=== PATIENT | female | born 1945 | race Caucasian/White ===

== ENCOUNTER → 2016-10-17 | Outpatient (CLI) | payer MEDICARE, OTHER ==
--- NOTE | 2016-10-17 10:34 | REPMRS ---
Patient History The patient states she had a clinical breast exam in September 2016. Family history of breast cancer in paternal aunt under age 50. Benign radio exam breast specimen of the left breast, July 14, 2014. Benign stereotatic loc for ea lesion of the left breast, July 14, 2014. Patient has lost 14 pounds since last mammo. Digital Mammo Screening Bilat: October 17, 2016 - Exam #: [id number] Bilateral CC and MLO view(s) were taken. Technologist: Rosemary Keating, Technologist Prior study comparison: September 03, 2015, bilateral digital mammo screening bilat performed at [facility]. January 19, 2015, left breast digital mammo diagnostic unilateral performed at [facility]. FINDINGS: There are scattered fibroglandular densities. There is a needle biopsy marker clip in the left breast. There has been no change in the appearance of the mammogram from the prior studies. There is a mild amount of scattered fibroglandular density which is fairly symmetric. There is no interval development of dominant mass, architectural distortion, or clustered microcalcification suggestive of malignancy. ASSESSMENT: BI-RADS/ACR category 2 mammogram. Benign finding(s). Recommendation Routine screening mammogram in 1 year (for women over age 40). This mammogram was interpreted with the aid of an FDA-approved computer-aided dectection system. Electronically Signed By: Onesimo Li MD 10/17/16 [id number]
== END ==
LOC: M RAD 09:26
PROVIDERS: ATTEND Nurse Practitioner Adult Health
DX: Z12.31 Encounter for screening mammogram for malignant neoplasm of breast (principal); Z80.3 Family history of malignant neoplasm of breast; R92.8 Other abnormal and inconclusive findings on diagnostic imaging of breast

== ENCOUNTER → 2016-11-22 | Outpatient (CLI) | payer MEDICARE, OTHER ==
[~2016-11-22] MED LIST: ISOVUE-370 76% 100ML VIAL (Q9967) As Ordered ONE
--- NOTE | 2016-11-22 09:28 | REP ---
CT HEAD WITHOUT AND WITH CONTRAST: HISTORY: Dizziness. CONTRAST: Isovue 370, 75 mL. Areas of decreased attentuation are present in the periventricular white matter. This represents small vessel ischemic disease. There is no intraparenchymal hemorrhage, mass or midline shift. There is no abnormal enhancement. The ventricular system and cortical sulci are dilated consistent with minimal volume loss. There is no extracerebral collection. The visualized sinuses are clear. IMPRESSION: 1. Small vessel ischemic disease. 2. Minimal volume loss. Signed by Jl Fox MD 11/22/2016 09:33 A
== END ==
LOC: M RAD 08:05
PROVIDERS: ATTEND Psychiatry & Neurology Neurology
DX: R42 Dizziness and giddiness (principal); D48.1 Neoplasm of uncertain behavior of connective and other soft tissue
CPT/HCPCS: 70470; Q9967

== ENCOUNTER → 2017-02-23 | Outpatient (REF) | payer MEDICARE, OTHER ==
[2017-02-23 13:44] LABS: BASO % 0.5 % (0.0-1.0); EOS # 0.3 10^3/uL (0.0-0.50); EOS % 3.6 % (0.0-3.0); HEMATOCRIT 38.2 % (36.0-47.0); HEMOGLOBIN 11.9 g/dl (12.0-16.0); IMMATURE GRANULOCYTE % 0.4 % (0-0); LYMPH % 23.9 % (24.0-44.0); MEAN CORPUSCULAR HGB CONC 31.2 g/dl (32.0-36.5); MEAN CORPUSCULAR VOLUME 86.8 fl (80.0-96.0); MONO # 0.7 10^3/uL (0.0-0.8); MONO % 7.8 % (0.0-5.0); NEUTROPHILS # 5.3 10^3/uL (1.8-7.7); NEUTROPHILS % 63.8 % (36.0-66.0); PLATELET COUNT, AUTOMATED 224 10^3/uL (150-450); RED CELL DISTRIBUTION WIDTH 15.2 % (11.5-14.5); WHITE BLOOD COUNT 8.3 10^3/uL (4.0-10.0)
[2017-02-23 14:12] LABS: ALBUMIN 3.3 GM/DL (3.2-5.2); ALBUMIN/GLOBULIN RATIO 1.18 (1.00-1.93); ALKALINE PHOSPHATASE 62 U/L (45-117); ALT/SGPT 17 U/L (12-78); ANION GAP 10 MEQ/L (8-16); AST/SGOT 16 U/L (7-37); BILIRUBIN,TOTAL 0.4 MG/DL (0.2-1.0); BLOOD UREA NITROGEN 15 MG/DL (7-18); CALCIUM LEVEL 9.2 MG/DL (8.8-10.2); CARBON DIOXIDE LEVEL 28 MEQ/L (21-32); CHLORIDE LEVEL 106 MEQ/L (98-107); CHOLESTEROL LEVEL 158 MG/DL (<200); CHOLESTEROL RISK RATIO 3.224 (<5); CREATININE FOR GFR 1.14 MG/DL (0.55-1.02); FREE T4 1.14 NG/DL (0.76-1.46); GLOMERULAR FILTRATION RATE 50.2 (>39); GLUCOSE, FASTING 128 MG/DL (83-110); HDL CHOLESTEROL 49 MG/DL (>40); LDL CHOLESTEROL 65.2 MG/DL (<100); NON-HDL-C 109 MG/DL; POTASSIUM SERUM 3.9 MEQ/L (3.5-5.1); SODIUM LEVEL 144 MEQ/L (136-145); TOTAL PROTEIN 6.1 GM/DL (6.4-8.2); TRIGLYCERIDES LEVEL 219 MG/DL (<150)
[2017-02-23 15:52] LABS: ESTIMATED AVERAGE GLUCOSE 146 MG/DL (60-110); HEMOGLOBIN A1c 6.7 %
== END ==
LOC: M SFHCCLAY 08:40
DX: E11.29 Type 2 diabetes mellitus with other diabetic kidney complication (principal); I10 Essential (primary) hypertension; E78.4 Other hyperlipidemia
CPT/HCPCS: 84443

== ENCOUNTER → 2017-06-19 | Outpatient (REF) | payer MEDICARE, OTHER ==
[2017-06-19 13:58] LABS: FOLATE 6.9 NG/ML; VITAMIN B12 LEVEL > 2000 PG/ML
[2017-06-19 14:03] LABS: FERRITIN 11 NG/ML (8-252); IRON (FE) 59 UG/DL (50-170); PERCENT SATURATION 16.4 % (13.2-45.0); TOTAL IRON BINDING CAPACITY 359 UG/DL (250-450)
== END ==
LOC: M LAB REF 13:18
DX: D64.9 Anemia, unspecified (principal)
CPT/HCPCS: 82746

== ENCOUNTER → 2017-07-04 | Outpatient (REF) | payer MEDICARE, OTHER ==
[2017-07-04 21:51] LABS: ANION GAP 6 MEQ/L (8-16); BLOOD UREA NITROGEN 14 MG/DL (7-18); CALCIUM LEVEL 9.7 MG/DL (8.8-10.2); CARBON DIOXIDE LEVEL 30 MEQ/L (21-32); CHLORIDE LEVEL 105 MEQ/L (98-107); CREATININE FOR GFR 1.06 MG/DL (0.55-1.30); GLOMERULAR FILTRATION RATE 54.4 (>39); GLUCOSE, FASTING 215 MG/DL (70-100); POTASSIUM SERUM 4.3 MEQ/L (3.5-5.1); SODIUM LEVEL 141 MEQ/L (136-145)
== END ==
LOC: M SFHCCLAY 10:52
DX: E11.29 Type 2 diabetes mellitus with other diabetic kidney complication (principal)
CPT/HCPCS: 80048

== ENCOUNTER → 2017-08-14 | Outpatient (REF) | payer MEDICARE, OTHER ==
[2017-08-15 12:35] LABS: CHOLESTEROL LEVEL 164 MG/DL (<200); HDL CHOLESTEROL 41 MG/DL (>40); NON-HDL-C 123 MG/DL; TRIGLYCERIDES LEVEL 545 MG/DL (<150)
[2017-08-15 16:42] LABS: ESTIMATED AVERAGE GLUCOSE 214 MG/DL (60-110); HEMOGLOBIN A1c 9.1 %
== END ==
LOC: M SFHCCLAY 14:41
DX: E11.29 Type 2 diabetes mellitus with other diabetic kidney complication (principal)
CPT/HCPCS: 83036

== ENCOUNTER → 2017-11-02 | Outpatient (CLI) | payer MEDICARE, OTHER | LOC: M RAD 09:25 | DX: Z12.31 Encounter for screening mammogram for malignant neoplasm of breast (principal); N60.31 Fibrosclerosis of right breast; N60.32 Fibrosclerosis of left breast; Z80.3 Family history of malignant neoplasm of breast | CPT/HCPCS: 77067 ==

== ENCOUNTER → 2017-11-21 | Outpatient (REF) | payer MEDICARE, OTHER ==
[2017-11-22 12:47] LABS: ESTIMATED AVERAGE GLUCOSE 203 MG/DL (60-110); HEMOGLOBIN A1c 8.7 %
== END ==
LOC: M SFHCCLAY 15:04
DX: E11.29 Type 2 diabetes mellitus with other diabetic kidney complication (principal)
CPT/HCPCS: 83036

== ENCOUNTER → 2018-06-06 | Outpatient (REF) | payer MEDICARE, OTHER ==
[2018-06-06 12:41] LABS: BASO % 0.5 % (0.0-1.0); EOS # 0.4 10^3/uL (0.0-0.50); EOS % 4.6 % (0.0-3.0); HEMATOCRIT 33.7 % (36.0-47.0); HEMOGLOBIN 9.6 g/dl (12.0-15.5); LYMPH # 1.5 10^3/uL (1.5-4.5); LYMPH % 18.1 % (24.0-44.0); MEAN CORPUSCULAR HEMOGLOBIN 22.5 pg (27.0-33.0); MEAN CORPUSCULAR HGB CONC 28.5 g/dl (32.0-36.5); MEAN CORPUSCULAR VOLUME 78.9 fl (80.0-96.0); MONO # 0.7 10^3/uL (0.0-0.8); MONO % 8.2 % (0.0-5.0); NEUTROPHILS # 5.5 10^3/uL (1.8-7.7); NEUTROPHILS % 68.4 % (36.0-66.0); PLATELET COUNT, AUTOMATED 243 10^3/uL (150-450); RED BLOOD COUNT 4.27 10^6/uL (4.00-5.40)
[2018-06-06 13:02] LABS: HEMOGLOBIN A1c 8.3 %
[2018-06-06 13:19] LABS: ALBUMIN 3.3 GM/DL (3.2-5.2); BILIRUBIN,TOTAL 0.7 MG/DL (0.2-1.0); CALCIUM LEVEL 9.4 MG/DL (8.8-10.2); CHOLESTEROL RISK RATIO 3.255 (<5); CREATININE FOR GFR 1.13 MG/DL (0.55-1.30); FREE T4 1.21 NG/DL (0.76-1.46); GLOMERULAR FILTRATION RATE 50.4 (>39); POTASSIUM SERUM 3.7 MEQ/L (3.5-5.1); THYROID STIMULATING HORMONE 2.36 uIU/ML (0.358-3.740); TOTAL PROTEIN 6.9 GM/DL (6.4-8.2)
== END ==
LOC: M SFHCCLAY 08:18
PROVIDERS: ATTEND Nurse Practitioner Family
DX: E61.1 Iron deficiency (principal); I10 Essential (primary) hypertension; E78.49 Other hyperlipidemia; E11.29 Type 2 diabetes mellitus with other diabetic kidney complication
CPT/HCPCS: 80053; 80061; 83036; 83540; 84439; 84443; 85025; G0463

== ENCOUNTER → 2018-09-02 | Outpatient (REF) | payer MEDICARE, OTHER ==
[~2018-09-02] MED LIST changes: +ALLO10TA PO; +ASPI81TA26 PO; +ATEN25TA PO; +CINA30TA4 PO; +FERR5ELX PO; -ISOVUE-370 76% 100ML VIAL (Q9967) As Ordered ONE; +MONT10TA2 PO; +PRAV20TA2 PO; +QUIN1TAB4 PO; +TORS10TA3 PO; +TORS20TA2 PO; +TOUJ1.2I SC; +XALA0.007 OS
== END ==
LOC: M LAB REF 13:29
PROVIDERS: ATTEND Internal Medicine Gastroenterology
DX: R19.7 Diarrhea, unspecified (principal)

== ENCOUNTER 2018-09-16 10:12 | Day surgery (SDC) | payer MEDICARE, OTHER ==
[~2018-09-16] VITALS: Ht 162.6 cm; Wt 130.2 kg
[~2018-09-16 10:12] MED LIST changes: +NS 1,000 ML IV ONE
[2018-09-16] MEDS ORDERED: PROPOFOL 200 MG/20 ML VIAL As Ordered ONE (12:12)
[2018-09-16] MEDS ORDERED: LIDOCAINE 2% INJ 100 MG/5 ML SDV (FOR ANES.) As Ordered ONE (12:12)
--- NOTE | 2018-09-16 12:35 | ROOR ---
Patient Name: Mimi Jones Procedure Date: 09/16/2018 12:02 PM Date of : 1945 Age: 73 Room: [facility] Gender: Female Note Status: Finalized Procedure: Total Colonoscopy to Cecum + Bx.+ Carbon Spot Marking Indications: Lower abdominal pain, Change in bowel habits Providers: Bubba Balderas MD Referring MD: Rosangela Trinidad NP Requesting Provider: Medicines: Monitored Anesthesia Care Complications: No immediate complications. Procedure: Pre-Anesthesia Assessment: - The heart rate, respiratory rate, oxygen saturations, blood pressure, adequacy of pulmonary ventilation, and response to care were monitored throughout the procedure. The Colonoscope was introduced through the anus and advanced to the cecum, identified by appendiceal orifice and ileocecal valve. The colonoscopy was performed without difficulty. The patient tolerated the procedure well. The quality of the bowel preparation was excellent. Findings: The perianal and digital rectal examinations were normal. Non-bleeding internal hemorrhoids were found during retroflexion. The hemorrhoids were small and Grade I (internal hemorrhoids that do not prolapse). Scattered small-mouthed diverticula were found in the recto-sigmoid colon, sigmoid colon and descending colon. An ulcerated partially obstructing large mass was found in the proximal ascending colon. The mass was circumferential. No bleeding was present. Biopsies were taken with a cold forceps for histology. Area was successfully injected with Spot (carbon black) for tattooing. The exam was otherwise without abnormality on direct and retroflexion views. Impression: - Non-bleeding internal hemorrhoids. - Diverticulosis in the recto-sigmoid colon, in the sigmoid colon and in the descending colon. - Rule out malignancy, partially obstructing tumor in the proximal ascending colon. Biopsied. Injected. - The examination was otherwise normal on direct and retroflexion views. - The examination was otherwise normal. Recommendation: - Patient has a contact number available for emergencies. The signs and symptoms of potential delayed complications were discussed with the patient. Return to normal activities tomorrow. Written discharge instructions were provided to the patient. - Discharge patient to home. - Continue present medications. - Await pathology results. - Telephone GI clinic for pathology results in 1 week. - Check hemogram with white blood cell count and platelets today. - Check liver enzymes (AST, ALT, alkaline phosphatase, bilirubin) today. - Check CEA today. - Refer to a surgeon at appointment to be scheduled. - The findings and recommendations were discussed with the patient's family. Bubba Balderas MD Bubba Balderas MD 09/16/2018 12:35:04 PM Electronically signed by Bubba Balderas MD Number of Addenda: 0 Note Initiated On: 09/16/2018 12:02 PM Estimated Blood Loss: Estimated blood loss: none.
[2018-09-16 13:20] VITALS: BP 193/96
[2018-09-16 13:30] LABS: HEMATOCRIT 32.5 % (36.0-47.0); HEMOGLOBIN 9.7 g/dl (12.0-15.5); MEAN CORPUSCULAR HEMOGLOBIN 23.2 pg (27.0-33.0); MEAN CORPUSCULAR HGB CONC 29.8 g/dl (32.0-36.5); MEAN CORPUSCULAR VOLUME 77.6 fl (80.0-96.0); PLATELET COUNT, AUTOMATED 239 10^3/uL (150-450); RED BLOOD COUNT 4.19 10^6/uL (4.00-5.40); WHITE BLOOD COUNT 7.7 10^3/uL (4.0-10.0)
[2018-09-16 13:49] LABS: ALBUMIN 2.9 GM/DL (3.2-5.2); BILIRUBIN,TOTAL 0.6 MG/DL (0.2-1.0); CALCIUM LEVEL 9.2 MG/DL (8.8-10.2); CREATININE FOR GFR 1.08 MG/DL (0.55-1.30); GLOMERULAR FILTRATION RATE 53.1 (>39); POTASSIUM SERUM 3.6 MEQ/L (3.5-5.1); TOTAL PROTEIN 6.2 GM/DL (6.4-8.2)
== END 2018-09-16 13:24 | disposition home or self-care (01) ==
LOC: M OPP 10:12
PROVIDERS: ATTEND Internal Medicine Gastroenterology
DX: K64.0 First degree hemorrhoids (principal); D37.4 Neoplasm of uncertain behavior of colon; K56.690 Other partial intestinal obstruction; K57.30 Diverticulosis of large intestine without perforation or abscess without bleeding; R10.30 Lower abdominal pain, unspecified; R19.4 Change in bowel habit; Z79.4 Long term (current) use of insulin; Z79.899 Other long term (current) drug therapy; Z88.8 Allergy status to other drugs, medicaments and biological substances

== ENCOUNTER → 2018-09-27 | Outpatient (CLI) | payer MEDICARE, OTHER ==
[~2018-09-27] MED LIST changes: +ACYC1CAP20 PO; +ATOR40TA75 PO; +B-12100021 PO; +ERGO80006 PO; +GASTROGRAFIN SOLUTION 30ML (Q9963) As Ordered ONE; +ISOVUE-370 76% 100ML VIAL (Q9967) As Ordered ONE; +LIDO2.5C15 TOP; +MAGN400C2 PO; +MAGN400T14 PO; -NS 1,000 ML IV ONE; +ONDA8TAB10 PO; +PROC10TA4 PO; +SUPRSOL2; +VITA200028 PO; +XANA0.25 PO
--- NOTE | 2018-09-27 18:47 | REP ---
CT of the abdomen and pelvis with IV and bowel contrast for benign neoplasm of the ascending colon. There are no comparisons. The visualized lung garsia demonstrate a right lower lobe 15 mm pleural-based lung nodule. In the absence of comparison studies. This is a category for B lung lesion with the probability of malignancy five - 15%. 3-month follow-up chest CT is recommended and PET / CT scan might be considered. The hepatic parenchyma is homogeneous. There are surgical clips in the gallbladder fossa. The pancreas and spleen are unremarkable. The adrenals and kidneys are unremarkable. The abdominal aorta is unremarkable. There is no periaortic adenopathy or mass. There is circumferential wall thickening of the cecum and proximal ascending colon. The appendix is unremarkable. The transverse colon is unremarkable. There is mild wall thickening of the proximal and mid descending colon, nonspecific, but could represent colitis in the appropriate clinical setting. Pelvis: There is a hysterectomy. Vaginal cuff and adnexa are unremarkable. The bladder is unremarkable. There is no ascites or adenopathy. Impression: There is circumferential wall thickening of the cecum and proximal ascending colon. There is mild wall thickening of the descending colon. This is compatible with colitis in the appropriate clinical setting. There is a 15 ml pleural-based left lower lobe lung nodule. The absence of comparison studies. A followup CT scan in 3 months is recommended. PET / CT scan might be considered. There is no abdominal or pelvic adenopathy. There is no ascites. There is no evidence of metastatic disease. Cholecystectomy and hysterectomy. Electronically Signed by Bradley Pathak MD 09/27/2018 06:39 P
== END ==
LOC: M RAD 15:28
PROVIDERS: ATTEND Surgery
DX: D12.2 Benign neoplasm of ascending colon (principal)
CPT/HCPCS: 74177; Q9963; Q9967

== ENCOUNTER → 2018-10-08 | Outpatient (REF) | payer MEDICARE, OTHER ==
[~2018-10-08] MED LIST changes: -ACYC1CAP20 PO; -ATOR40TA75 PO; -B-12100021 PO; -ERGO80006 PO; -GASTROGRAFIN SOLUTION 30ML (Q9963) As Ordered ONE; -ISOVUE-370 76% 100ML VIAL (Q9967) As Ordered ONE; -LIDO2.5C15 TOP; -MAGN400C2 PO; -MAGN400T14 PO; -ONDA8TAB10 PO; -PROC10TA4 PO; -VITA200028 PO; -XANA0.25 PO
[2018-10-08 20:30] LABS: CALCIUM LEVEL 9.1 MG/DL (8.8-10.2); CREATININE FOR GFR 1.2 MG/DL (0.55-1.30); POTASSIUM SERUM 3.8 MEQ/L (3.5-5.1)
== END ==
LOC: M SFHCCLAY 10:17
PROVIDERS: ATTEND Family Medicine
DX: Z01.818 Encounter for other preprocedural examination (principal); I12.9 Hypertensive chronic kidney disease with stage 1 through stage 4 chronic kidney disease, or unspecified chronic kidney disease; N18.3 Chronic kidney disease, stage 3 (moderate)
CPT/HCPCS: 80048; 93005; G0463

== ENCOUNTER 2018-10-15 12:50 | Inpatient (IN) | payer MEDICARE, OTHER ==
[~2018-10-15] VITALS: Ht 162.6 cm; Wt 129.8 kg
--- NOTE | 2018-10-15 06:16 | HPE ---
DATE OF ADMISSION: 10/15/2018 ADMITTING DIAGNOSIS: Right colon cancer. HISTORY OF PRESENT ILLNESS: The patient is a 73-year-old woman who underwent a colonoscopy as a screening procedure by Dr. Balderas on 09/16/2018. She was found to have some mild diverticulosis. She was also noted to have an ulcerated partially obstructing mass in the proximal ascending colon. The mass appeared circumferential. Biopsies were taken and the area was spot marked. Her pathology revealed only fragments of tubulovillous adenoma with no high-grade dysplasia or malignancy identified. A CT scan of the abdomen and pelvis was obtained which revealed circumferential wall thickening of the cecum and proximal ascending colon. Labs included a CEA which was mildly elevated at 4.0 with an upper limit of normal of 2.5. The mass is consistent with cancer both by inspection endoscopically and CT. She was counseled that this is most likely cancer even though the biopsy did not confirm this. She is now being admitted to undergo a robotic-assisted laparoscopic right hemicolectomy. She was counseled that her obesity may make completion of a laparoscopic colectomy difficult if not impossible and we may be forced to convert to an open procedure. ALLERGIES: The patient reports an allergy to PHENERGAN. CURRENT MEDICATIONS: Include montelukast 10 mg by mouth daily at bedtime, pravastatin 20 mg daily, allopurinol 300 mg by mouth daily, torsemide 40 mg every morning and 20 mg every evening, atenolol 25 mg by mouth daily, quinapril 40 mg by mouth daily, aspirin 81 mg by mouth daily, Toujeo SoloStar 100 units subcu daily, meclizine hydrochloride 25 mg by mouth three times a day as needed, Sensipar 30 mg 1 tablet weekly, latanoprost left drops at bedtime, and she is on some oral iron. PAST SURGICAL HISTORY: Significant for tonsillectomy. She has had a previous cholecystectomy. She has had a hysterectomy. She has had cataract surgery with implants and has had surgery for glaucoma. PAST MEDICAL HISTORY: Significant for obesity. She has diabetes. She has hypercholesterolemia and hypertension. She has a history of glaucoma. She has had hyperparathyroidism. She has a history of Meniere's disease. FAMILY HISTORY: Significant that her father is from leukemia and the mother is from uterine and stomach cancer. SOCIAL HISTORY: The patient is a nonsmoker and denies any alcohol use. REVIEW OF SYSTEMS: Reveals no history of chest pain or palpitations. She has had some chronic issues with diarrhea but has not seen any bleeding. She denies any cough, wheezing or sputum production. She has some chronic knee pain. She has no history of deep vein thrombosis (DVT) or pulmonary embolus. She denies any shortness of breath or wheezing. PHYSICAL EXAMINATION: Reveals a pleasant woman in no acute distress. She has obvious morbid obesity. Sclerae are anicteric. Mucous membranes are moist. Neck is supple without mass or bruit. Heart exam shows a regular rate and rhythm. The lungs are clear to auscultation bilaterally. Abdomen is quite obese. There is no evident hernia. She has active bowel sounds. The abdomen is soft and nontender without appreciable mass. Extremities are without edema. She has palpable radial and pedal pulses bilaterally. IMPRESSION: The patient has a mass in the ascending colon consistent with cancer. Additional diagnoses include diabetes mellitus type 2, hypercholesterolemia, hypertension, glaucoma, allergies, and Meniere disease. PLAN: The patient is being admitted on the morning of 10/15/2018 to undergo a robotic-assisted laparoscopic right hemicolectomy. The patient was counseled that it may be necessary to convert to an open procedure if her surgery is made significantly more difficult by her obesity. The patient was to perform an antibiotic and mechanical bowel preparation on 10/14/2018 using SUPREP with neomycin and Flagyl. She will receive a dose of intravenous antibiotics just before surgery. Thromboembolic deterrent stockings and sequentials will be utilized during the procedure for DVT prophylaxis. She was counseled regarding the risks of the surgery. Risks include but are not limited to bleeding, infection, scarring, adverse drug reaction, need for further surgery, injury of internal organ, anastomotic leak, and hernia. She had an opportunity to ask questions regarding the surgery and desires to proceed. ALFONSO
[~2018-10-15 12:50] MED LIST changes: +ALVIMOPAN 12 MG CAPSULE (ENTEREG) PO ONE; +LACTATED RINGER'S 1000 ML IV ONE; +LIDOCAINE 1% MDV 20ML VIAL SQ PRN; +LR 1,000 ML IV ONE; -SUPRSOL2; +cefoTEtan DISODIUM 2 GM in D5W MINI-BAG PLUS 50 ML IV ONE
[2018-10-15] MEDS ORDERED: SUPRSOL2 (13:13)
[2018-10-15] MEDS ORDERED: dexameTHASONE 4 MG/ML 1ML VIAL (J1100) As Ordered ONE ×2 (13:50→13:51)
[2018-10-15] MEDS ORDERED: LIDOCAINE 2% INJ 100 MG/5 ML SDV (FOR ANES.) As Ordered ONE (13:50)
[2018-10-15] MEDS ORDERED: ONDANSETRON 4MG/2ML VIAL (J2405) As Ordered ONE (13:50)
[2018-10-15] MEDS ORDERED: ROCURONIUM BROMIDE 50 MG/5 ML VIAL As Ordered ONE ×4 (13:50→21:34)
[2018-10-15] MEDS ORDERED: PROPOFOL 200 MG/20 ML VIAL As Ordered ONE (13:50)
[2018-10-15] MEDS ORDERED: KETOROLAC 60 MG/2 ML VIAL (J1885) As Ordered ONE (13:51)
[2018-10-15] MEDS ORDERED: fentaNYL 250 MCG/5 ML INJECTION (J3010) As Ordered ONE (13:52)
[2018-10-15] MEDS ORDERED: MIDAZOLAM INJ 2 MG/2 ML VIAL (J2250) As Ordered ONE (13:52)
[2018-10-15] MEDS ORDERED: BUPIVACAINE HCL 0.25% 30 ML VIAL As Ordered ONE (15:34)
[2018-10-15] MEDS ORDERED: DESFLURANE 240 ML INHALANT As Ordered ONE (15:41)
[2018-10-15] MEDS ORDERED: ePHEDrine SULFATE 25 MG/5 ML(5MG/ML) SYRINGE As Ordered ONE ×2 (16:11→16:40)
[2018-10-15] MEDS ORDERED: SUGAMMADEX SODIUM 500 MG/5 ML VIAL (BRIDION) As Ordered ONE (17:07)
[2018-10-15] MEDS: LATANOPROST 0.005% OPHTH SOLN 2.5 ML OS SCH (21:00)
[2018-10-15] MEDS: HumaLOG INSULIN (NovoLOG) PER UNIT SC SCH (21:00)
[2018-10-15] MEDS ORDERED: HYDROmorphone HCL 2 MG/ML 1ML VIAL (J1170) As Ordered ONE (21:33)
[2018-10-15] MEDS ORDERED: METOCLOPRAMIDE INJ 10MG/2ML VIAL (J2765) IV PRN ×3 (22:00→23:15)
[2018-10-15] MEDS ORDERED: PERCOCET 5MG/325MG TAB PO PRN ×2 (22:00→23:15)
[2018-10-15] MEDS ORDERED: LR 1,000 ML IV SCH ×2 (22:00→23:15)
[2018-10-15] MEDS ORDERED: ONDANSETRON 4MG/2ML VIAL (J2405) IV PRN ×3 (22:00→23:15)
[2018-10-15] MEDS ORDERED: fentaNYL 100 MCG/2 ML INJECTION (J3010) IV PRN ×2 (22:00→23:15)
[2018-10-15] MEDS ORDERED: MEPERIDINE INJ 25 MG/ML VIAL (J2175) IV PRN ×2 (22:00→23:15)
[2018-10-15] MEDS ORDERED: MORPHINE 4 MG/ML 1ML VIAL/SYRINGE (J2270) IV PRN (22:15)
[2018-10-15] MEDS ORDERED: HumaLOG INSULIN (NovoLOG) PER UNIT SC ONE (22:15)
[2018-10-15 22:45] VITALS: BP 165/81
[2018-10-15 23:15] VITALS: BP 166/82
[2018-10-15] MEDS ORDERED: HumaLOG INSULIN (NovoLOG) PER UNIT SC SCH (23:30)
[2018-10-15] MEDS: LR 1,000 ML IV SCH (23:44)
[2018-10-15 23:45] VITALS: BP 159/79
[2018-10-16] VITALS (8 sets, daily range): BP systolic 111–147; BP diastolic 56–86
[2018-10-16] MEDS ORDERED: cefoTEtan DISODIUM 1 GM in D5W MINI-BAG PLUS 50 ML IV ONE (02:15)
[2018-10-16] MEDS: LATANOPROST 0.005% OPHTH SOLN 2.5 ML OS SCH ×2 (02:20→20:13)
[2018-10-16] MEDS: KETOROLAC 30 MG/ML VIAL (J1885) IV PRN ×4 (02:26→22:37)
[2018-10-16] MEDS: LR 1,000 ML IV SCH ×3 (04:38→20:12)
[2018-10-16 06:29] LABS: BASO % 0.2 % (0.0-1.0); EOS % 0.1 % (0.0-3.0); HEMATOCRIT 28.6 % (36.0-47.0); HEMOGLOBIN 8.7 g/dl (12.0-15.5); LYMPH # 0.8 10^3/uL (1.5-5.0); LYMPH % 7.8 % (24.0-44.0); MEAN CORPUSCULAR HEMOGLOBIN 23.3 pg (27.0-33.0); MEAN CORPUSCULAR HGB CONC 30.4 g/dl (32.0-36.5); MEAN CORPUSCULAR VOLUME 76.5 fl (80.0-96.0); MONO # 0.7 10^3/uL (0.0-0.8); MONO % 7.3 % (0.0-5.0); NEUTROPHILS # 8.6 10^3/uL (1.5-8.5); NEUTROPHILS % 84.2 % (36.0-66.0); PLATELET COUNT, AUTOMATED 239 10^3/uL (150-450); RED BLOOD COUNT 3.74 10^6/uL (4.00-5.40); WHITE BLOOD COUNT 10.2 10^3/uL (4.0-10.0)
[2018-10-16 06:52] LABS: ALBUMIN 2.6 GM/DL (3.2-5.2); BILIRUBIN,TOTAL 0.3 MG/DL (0.2-1.0); CALCIUM LEVEL 9.1 MG/DL (8.8-10.2); CREATININE FOR GFR 1.69 MG/DL (0.55-1.30); GLOMERULAR FILTRATION RATE 31.7 (>39); POTASSIUM SERUM 3.8 MEQ/L (3.5-5.1); TOTAL PROTEIN 5.9 GM/DL (6.4-8.2)
[2018-10-16] MEDS: ENOXAPARIN 40 MG/0.4 ML SYRINGE (J1650) SC SCH (08:40)
[2018-10-16] MEDS: HumaLOG INSULIN (NovoLOG) PER UNIT SC SCH ×4 (08:41→20:13)
[2018-10-16] MEDS: ATENOLOL 25 MG TAB PO SCH (08:41)
[2018-10-16] MEDS: QUINAPRIL 20 MG TAB PO SCH (08:42)
--- NOTE | 2018-10-16 20:08 | IPN ---
DATE: 10/16/2018 The patient is status post right colectomy by Dr. Villela yesterday and has been having a fair bit of discomfort and pain and states that she has been up to move around just minimally, really not complaining of any nausea or vomiting but is not really hungry. She was started on a clear liquid diet but really has not tolerated it all that much today. She has had no fevers and has not had any other complaints other than just feeling sore and uncomfortable with moving around. Her physical exam reveals that she is wearing some oxygen at this point. The lungs are diminished significantly at the bases bilaterally. Heart is regular. Abdomen is morbidly obese, mildly tender mostly at the incision site and without significant guarding or rebound. Dressings are clean and dry. The Barajas catheters in place. IMPRESSION AND PLAN: The patient is status post right colectomy and overall patient is relatively sore enough that she is not moving on her own, I anticipate that it would be very difficult given her morbid obesity to get out of bed to adequately use the commode and thus I would recommend that we keep the Barajas in today. Will see how she does with the Barajas in today and her pain control and see how that works and then possibly remove it tomorrow morning. From the standpoint of respiratory, I have encouraged her to use the incentive spirometry and mobilize herself a little bit more out of bed with nursing assistance. From a GI standpoint, it is reasonable to keep her on clear liquids for now and then progress her diet once she seems to have a little bit less distension and overall has less discomfort, pain.
[2018-10-17] VITALS (7 sets, daily range): BP systolic 80–152; BP diastolic 42–72
[2018-10-17] MEDS: LR 1,000 ML IV SCH (03:31)
[2018-10-17] MEDS: ENOXAPARIN 40 MG/0.4 ML SYRINGE (J1650) SC SCH (08:35)
[2018-10-17] MEDS: QUINAPRIL 20 MG TAB PO SCH (08:35)
[2018-10-17] MEDS: ATENOLOL 25 MG TAB PO SCH ×2 (08:36→09:00)
[2018-10-17] MEDS: HumaLOG INSULIN (NovoLOG) PER UNIT SC SCH ×4 (08:37→21:00)
[2018-10-17] MEDS: TORSEMIDE 20 MG TAB PO SCH (10:02)
[2018-10-17 10:05] LABS: HEMATOCRIT 27.9 % (36.0-47.0); MEAN CORPUSCULAR HEMOGLOBIN 22.5 pg (27.0-33.0); MEAN CORPUSCULAR HGB CONC 28.7 g/dl (32.0-36.5); MEAN CORPUSCULAR VOLUME 78.4 fl (80.0-96.0); PLATELET COUNT, AUTOMATED 221 10^3/uL (150-450); RED BLOOD COUNT 3.56 10^6/uL (4.00-5.40); WHITE BLOOD COUNT 6.5 10^3/uL (4.0-10.0)
[2018-10-17 10:28] LABS: CALCIUM LEVEL 9.1 MG/DL (8.8-10.2); CREATININE FOR GFR 1.19 MG/DL (0.55-1.30); GLOMERULAR FILTRATION RATE 47.5 (>39); POTASSIUM SERUM 3.4 MEQ/L (3.5-5.1)
[2018-10-17] MEDS ORDERED: NORCO, ANEXSIA 5/325MG TABLET (HYDROcodone/ACETAMINOPHEN) PO PRN (10:45)
[2018-10-17] MEDS ORDERED: POTASSIUM CHLORIDE 10% LIQ 20 MEQ/15 ML UDC PO ONE (14:00)
[2018-10-17 14:14] LABS: HEMATOCRIT 30.9 % (36.0-47.0)
--- NOTE | 2018-10-17 22:38 | RO ---
DATE OF PROCEDURE: 10/15/2018 PREOPERATIVE DIAGNOSIS: Right colon mass. POSTOPERATIVE DIAGNOSES 1. Extensive abdominal adhesions. 2. Malignant appearing right cecal mass with adherence to the lateral abdominal wall. OPERATIVE PROCEDURE: Robotic-assisted laparoscopic right hemicolectomy with ileocolonic anastomosis and extensive lysis of adhesions with limited resection of the lateral abdominal wall on bloc with the colon. SURGEON: Axel Villela MD EXTRACTOR LOADER AND UNLOADER: Chirag Peters MD who was necessary for assisting in exposure of the ileum and colon for creation of the anastomosis and performance of the anastomosis. ANESTHESIA: General. INDICATIONS FOR PROCEDURE The patient is a 73-year-old woman who was found on colonoscopy to have a suspicious appearing circumferential mass in the proximal ascending colon. Biopsies were obtained that revealed only adenomatous tissue without apparent malignancy. A CT scan showed a thickened area in the cecum/ascending colon which appeared suspicious for malignancy as well. She was counseled for surgery and is now for a robotic-assisted laparoscopic right hemicolectomy. OPERATIVE PROCEDURE The patient was brought to the operating room and placed on the table in a supine position. She was placed under general endotracheal anesthesia. A Barajas catheter was inserted. TEDs and sequentials were used. The patient was left in a flat position. The patient's abdomen was prepped and draped in a sterile fashion. She was rolled slightly to the left. Initial entry into the abdomen was in the left upper quadrant. 0.25% Marcaine was infiltrated at the trocar sites as needed. A short transverse incision was made and a Veress needle was inserted. After positive hanging drop test, the abdomen was insufflated with carbon dioxide gas without difficulty. An 8 mm robotic Visiport was placed over a scope and advanced through the abdominal wall without difficulty. Initial inspection showed extensive adhesions of the omentum to the anterior abdominal wall covering the entire right upper quadrant and right lateral abdomen extending over into the left upper quadrant. She had a very long oblique right subcostal scar from prior cholecystectomy. She was also noted to have some adhesions along the low midline which appeared to extend into a small ventral hernia. Three additional trocars were placed forming an oblique line from the left upper quadrant to the right lower quadrant. The [facility] patient cart was then brought into position and the camera port was docked. Targeting took place and the additional trocars were also then docked. Initially only the camera and a cauterizing scissors were placed. These were the two middle ports that were utilized. A long period of dissection of the adhesions then began. Starting at the inferior-most and left-most aspect of the adhesions these were dissected away from the abdominal wall using a combination of sharp and cautery dissection. Once a clearer area had been exposed additional instruments including a bipolar and a grasping retractor were inserted to facilitate the dissection. The adhesions extended up and enveloped the falciform ligament and this was exposed. The adhesions included the inferior and anterior margin of the liver and portions of the liver were then dissected free, freeing the adhesions. The adhesions extended over to the right upper quadrant and as these were lysed it became possible to identify the location of the hepatic flexure of the colon. Inspection along the ascending colon revealed that there appeared to be some significant attachment of the region of the cecum to the lateral abdominal wall with evidence of some inflammation and edema in this area. The terminal ileum also appeared somewhat dilated and thickened over the last 10-15 cm. The band of adhesions of the omentum into the anterior abdominal wall hernia were inspected. These were densely attached within the small defect and I elected to just transect these about a centimeter from the entry into the hernia, leaving the small amount of omentum within the hernia. This was accomplished with the vessel sealer. With this band free, it was possible to fold the omentum up into the upper abdomen and expose the small bowel. It had taken 1 hour in 20 minutes to complete the dissection of all of the adhesions to allow the actual operation to proceed. At this point, the greater omentum was elevated and the transverse colon was identified. The omentum was elevated off of the middle portion of the transverse colon and then the dissection extended to the right to identify the proximal transverse colon and the hepatic flexure. The attachments of the hepatic flexure in the subhepatic space were carefully dissected using the vessel sealer for hemostasis. Dissection then proceeded around the hepatic flexure to the superior aspect of the ascending colon. There were significant adhesions in this area as well which required dissection. The superior aspect of the proximal transverse colon was developed across the subhepatic space and the retroperitoneal duodenum was identified and protected. Attention was then turned to the terminal ileum. A few inferior attachments of the terminal ileum and the ileal mesentery were divided with cautery. The patient had been turned into a significant left roll with a Trendelenburg position for much of this dissection. The terminal ileum was then transected using the 65 mm stapler. This required exchanging one of the left upper quadrant trocar sites for a 12-mm port. This was accomplished by Dr. Peters as part of his assistant warehouse manager duties. The mesentery of the ileum was then divided down to its base using the vessel sealer. I then more closely inspected the cecum and its attachments to the lateral abdominal wall. I elected to resect a portion of the abdominal wall with the specimen on bloc. Therefore the peritoneum was scored around the area, leaving a margin of normal appearing peritoneum. This was incised using the cauterizing scissors. As the peritoneum was incised, a clear plane was evident between the peritoneum and the underlying extraperitoneal fibrofatty tissue and this peeled away very nicely without any evidence of any extension of tumor beyond this. This plane was developed extending posteriorly. The tissues at the inferior aspect of the cecum were divided. The appendix was identified and actually used for gentle traction on this area. At this point I completed the superior dissection of the hepatic flexure and the transverse colon was divided also with the stapler. This required use of two loads. The colonic mesentery was then divided down to its base using the vessel sealer. Dissection then proceeded along the base of the mesentery dividing this from left to right at its base again using the vessel sealer. Again the retroperitoneal portion of the duodenum was identified and carefully preserved. Once the transverse colon and hepatic flexure had been freed I returned to the dissection of the cecum. The cecum and ascending colon were elevated and the location of the ileocolic vessel was identified. The peritoneum on the inferior aspect of this was opened using the vessel sealer and dissection proceeded superiorly to divide the vein and artery separately using the vessel sealer. Dissection proceeded superiorly to complete the dissection of the right colon mesentery. The mass remained attached posterolaterally and it was necessary to mobilize the specimen medially and divide the lateral attachments completing the dissection in the avascular plane. This completed the dissection and the specimen was completely freed. The terminal ileum appeared to have excellent mobility. The omentum was elevated off of the exposed end of the transverse colon. I then returned to the bedside to complete the anastomosis. Dr. Peters was involved directly in this portion of the procedure. A short longitudinal midline incision was made just above the umbilicus after the two ends of the bowel and the specimen had been grasped with retractors through the robotic ports. After placement of a small Mobius retractor much of the a specimen was passed through the opening but the tumor mass itself was too large to fit and it was necessary to extend the midline incision to approximately 8 to 10 cm to allow the specimen to pass. This was placed aside in a specimen basin. The end of the terminal ileum and the transverse colon were both brought through the retractor. There appeared to be excellent vascularity although the terminal ileal end appeared somewhat thickened and mildly edematous. It appeared that she had some degree of obstruction related to her tumor. The ends of the bowel were brought into apposition with several simple sutures of #3-0 Vicryl. Small enterotomies were created. Once I saw how thickened the terminal ileal lining was I elected to excise an additional several centimeters of the terminal ileum to allow us to go back to an area that was less thickened. A stapled anastomosis was performed with a linear cutter 55 stapler. Because of the significant edema I oversewed the internal aspect of the staple line on each side with a running suture of #3- 0 Vicryl for additional strength. The anastomosis was completed with a TX60G stapler. This left a good opening within the anastomosis. Multiple additional sutures of #3-0 Vicryl were placed to oversew and invert this staple line. The completed anastomosis looked excellent and there was no bleeding. This was irrigated and then reduced into the abdomen. Once the anastomosis had been completed Dr. Peters was released from surgery and I continued with the manager surgical. The abdominal wall was elevated and the inner aspect of the 12-mm port site in the left upper quadrant was closed with #1 Vicryl. The peritoneum along the midline was closed with #1 Vicryl and the fascia along the midline incision was closed with interrupted simple sutures of #1 Vicryl. The midline wound was irrigated. A change of gown and gloves had taken place after the anastomosis was reduced into the abdomen and closure began. The skin incisions were all closed with surgical rosalee. Sterile dressings were applied. I inspected the specimen off the field. The colon was opened along the antimesenteric border beginning at the end of the transverse colon and carried proximally to the mid to proximal ascending colon. There was a large mass palpable perhaps 6 tor 7 centimeters within the cecum and perhaps most proximal ascending colon. There did not appear to be any tumor at the surgical margin. I do not feel any large nodes within the mesentery. By palpation through the open the colon there was obviously an obstructing mass within the cecum. This was sent for permanent pathology. The patient was awakened in the operating room, extubated and moved to the recovery room in stable condition. ALFONSO
[2018-10-17] MEDS: LATANOPROST 0.005% OPHTH SOLN 2.5 ML OS SCH (22:43)
[2018-10-18] VITALS (7 sets, daily range): BP systolic 120–148; BP diastolic 58–80
[2018-10-18] MEDS: HumaLOG INSULIN (NovoLOG) PER UNIT SC SCH ×4 (08:39→20:52)
[2018-10-18] MEDS: ENOXAPARIN 40 MG/0.4 ML SYRINGE (J1650) SC SCH (08:39)
[2018-10-18] MEDS: TORSEMIDE 20 MG TAB PO SCH (08:39)
[2018-10-18] MEDS: ATENOLOL 25 MG TAB PO SCH (08:40)
[2018-10-18] MEDS: QUINAPRIL 20 MG TAB PO SCH (08:40)
[2018-10-18] MEDS: LATANOPROST 0.005% OPHTH SOLN 2.5 ML OS SCH (20:54)
[2018-10-19 02:00] VITALS: BP 145/63
[2018-10-19 06:00] VITALS: BP 145/68
[2018-10-19] MEDS: HumaLOG INSULIN (NovoLOG) PER UNIT SC SCH ×2 (08:54→12:51)
[2018-10-19] MEDS: ENOXAPARIN 40 MG/0.4 ML SYRINGE (J1650) SC SCH (08:54)
[2018-10-19] MEDS: TORSEMIDE 20 MG TAB PO SCH (08:55)
[2018-10-19] MEDS: QUINAPRIL 20 MG TAB PO SCH (08:58)
[2018-10-19] MEDS: ATENOLOL 25 MG TAB PO SCH (08:58)
[2018-10-19 10:00] VITALS: BP 154/81
--- NOTE | 2018-10-19 15:40 | IPN ---
DATE: 10/19/2018 SUBJECTIVE: The patient continues to make some very slow progressive improvements over time, but unfortunately, it has just been some slow progression and this morning when I saw her, she looked as though she was making some good improvements. However, had a bout of hypotension after having some pain medication. Her blood pressure came up nicely. She was not complaining of any tachycardia, was not complaining of any chest pain, no shortness of breath. No significant leg pain, et cetera. I repeated her complete blood count (CBC) and her hematocrit was up, suggesting that the hypotension was not bleeding related. In any case, she has made some slow but progressive improvement every day and feels less bloated today, although I will keep her on a clear liquid diet for right now, but tomorrow will probably progress her diet just as long as her blood pressure issues improve. She states that she had a minimal amount of flatus earlier between earlier visit this morning and when she had her hypotension, but given her current issues, and I do feel that we need to watch for a little bit closer, that I prefer to keep her on the clear liquids for right now just in case there was some element of intraluminal bleeding that occurred. Otherwise, her incisions are clean, dry, healing nicely without any erythema, drainage or discharge. Her lungs are clear to auscultation anteriorly and diminished at the bases posteriorly, although part of the diminish might be secondary to her morbid obesity. Heart is regular and otherwise extremities are warm and well-perfused. IMPRESSION AND PLAN: Patient overall seems to be making some good progress, as I stated earlier, and typically I would advance her diet, but at least at this point, will make sure that she is getting up to a bedside commode. Will give her some Tylenol for discomfort as needed instead of the [place] and I did start some torsemide this morning. Will have to see how her intake and output (I and O) is and her weight overall. She still is several kilos up from admission.
--- NOTE | 2018-10-19 15:43 | IPN ---
DATE: 10/18/2018 Patient had a bowel movement and still has had some flatus. Overall feeling better and earlier in the morning I advanced her diet. From a hypotensive standpoint, she has not had any more episodes and overall every day she is feeling a little bit better. Pathology has not been available by sign out. Otherwise, she seems to be making some slow but progressive improvements. Her vitals have been stable. Her incisions are clean, dry, healing without any erythema, drainage or discharge. IMPRESSION AND PLAN: Patient seems to be making some good progress. I have signed out to Dr. Peters, who is on this weekend. I anticipate she is tolerating her food for lunch, hopefully that she will be able to be discharged to home tomorrow. I anticipate the pathology will be back and she should be ready for her rosalee to come out next week. Overall, from a pain control standpoint, Tylenol seems to be working adequately for her at this time and we have restarted some of her diuretics and her weight has come down a little bit and we will continue with those at this time. Given her blood pressure is still up, we will keep our parameters in place, but otherwise continue current treatment.
[2018-10-21] MEDS ORDERED: CINACALCET 30 MG TAB (SENSIPAR) PO SCH (09:00)
--- NOTE | 2018-11-06 21:53 | DSES ---
DATE OF ADMISSION: 10/15/2018 DATE OF DISCHARGE: 10/19/2018 ADMITTING DISCHARGE: Right colon cancer. HISTORY OF PRESENT ILLNESS The patient is a 73-year-old woman who underwent a colonoscopy as a screening procedure by Dr. Balderas on September 16, 2018. She was found to have some mild diverticulosis. She was also found to have an ulcerated partially obstructing mass in the proximal ascending colon. The mass appeared circumferential. Biopsies were taken in the area was spot marked. Her pathology revealed only fragments of tubulovillous adenoma with no high-grade dysplasia or malignancy. A CT scan of the abdomen and pelvis was obtained which revealed circumferential wall thickening of the cecum and proximal ascending colon. Labs included a CEA level which was mildly elevated at 4.0 with a lab upper limit of normal of 2.5. The mass is consistent with cancer both by inspection endoscopically and CT. She was counseled that this is most likely cancer even though the biopsy did not confirm this. She is now being admitted to undergo a robotic-assisted laparoscopic right hemicolectomy. HOSPITAL COURSE The patient was admitted on the morning of October 15. She was taken directly to the operating room. She underwent an extensive lysis of abdominal adhesions followed by a robotic-assisted laparoscopic right hemicolectomy with an ileocolonic anastomosis. The resection included resection of some adherent lateral abdominal wall. A stapled anastomosis was performed. Postoperatively, the patient was started on clear liquids. She denied any nausea or vomiting. She was encouraged to be up ambulating. A [place] catheter placed in the operating room was continued until October 17. She was advanced to a regular diet on the . She made excellent progress and was discharged home on October 19, 2018. Her final pathology revealed a moderately to poorly differentiated colonic adenocarcinoma. There was invasion of tumor through the muscularis propria into the pericolonic soft tissue. 16 lymph nodes were identified eight of which contained metastatic carcinoma. There was evidence for some lymphovascular invasion. FINAL DIAGNOSES: 1. 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 Morbid obesity. 3. Diabetes mellitus type 2. 4. Hypercholesterolemia. 5. Hypertension. 6. Glaucoma. 7. Meniere's disease. 8. Extensive abdominal adhesions. PROCEDURE PERFORMED: Extensive laparoscopic lysis of adhesions with a laparoscopic robotic-assisted right hemicolectomy with ileocolonic anastomosis with attached portion of the lateral abdominal wall. DISPOSITION The patient was discharged home on the October. She was to call the office on the following Sunday to make an appointment with me in a week. She was advised to avoid any strenuous activity until seen in followup. She could shower as desired. She could take a diet as tolerated. She was to continue all of her medications as before admission. She was to take [id number] Tylenol or nonsteroidal anti-inflammatory medications for pain. She was to call the office for any problems.
== END 2018-10-19 14:30 | disposition home or self-care (01) | DRG 330 ==
LOC: M OR 12:50 → M MSPAV 22:42
PROVIDERS: ADMIT Surgery; ATTEND Surgery
PROC: 0DNU4ZZ Release Omentum, Percutaneous Endoscopic Approach (ICD-10-PCS; 2018-10-15)
PROC: 0DBB4ZZ Excision of Ileum, Percutaneous Endoscopic Approach (ICD-10-PCS; 2018-10-15)
PROC: 0DBF4ZZ Excision of Right Large Intestine, Percutaneous Endoscopic Approach (ICD-10-PCS; principal; 2018-10-15 14:45)
DX: C18.2 Malignant neoplasm of ascending colon (principal); Z68.42 Body mass index [BMI] 45.0-49.9, adult; C77.2 Secondary and unspecified malignant neoplasm of intra-abdominal lymph nodes; E11.9 Type 2 diabetes mellitus without complications; E66.01 Morbid (severe) obesity due to excess calories; K43.9 Ventral hernia without obstruction or gangrene; E78.00 Pure hypercholesterolemia, unspecified; I10 Essential (primary) hypertension; H81.09 Meniere's disease, unspecified ear; I95.2 Hypotension due to drugs; H40.9 Unspecified glaucoma; K66.0 Peritoneal adhesions (postprocedural) (postinfection); Z90.49 Acquired absence of other specified parts of digestive tract; Z98.49 Cataract extraction status, unspecified eye; Z90.710 Acquired absence of both cervix and uterus; Z79.82 Long term (current) use of aspirin; Z79.899 Other long term (current) drug therapy; Z88.8 Allergy status to other drugs, medicaments and biological substances

== ENCOUNTER → 2018-11-13 | Outpatient (CLI) | payer MEDICARE, OTHER ==
[~2018-11-13] MED LIST changes: +ACYC1CAP20 PO; -ALVIMOPAN 12 MG CAPSULE (ENTEREG) PO ONE; +ATOR40TA75 PO; +B-12100021 PO; +ERGO80006 PO; -LACTATED RINGER'S 1000 ML IV ONE; +LIDO2.5C15 TOP; +LIDOCAINE 1% MDV 20ML VIAL As Ordered ONE; -LIDOCAINE 1% MDV 20ML VIAL SQ PRN; -LR 1,000 ML IV ONE; +MAGN400C2 PO; +MAGN400T14 PO; +MIDAZOLAM INJ 2 MG/2 ML VIAL (J2250) As Ordered ONE; +ONDA8TAB10 PO; +PROC10TA4 PO; +SUPRSOL2; +VITA200028 PO; +XANA0.25 PO; +ceFAZolin 1GM INJ (J0690 PER 500MG) As Ordered ONE; -cefoTEtan DISODIUM 2 GM in D5W MINI-BAG PLUS 50 ML IV ONE; +diphenhydrAMINE INJ 50MG/ML VIAL (J1200) As Ordered ONE; +fentaNYL 100 MCG/2 ML INJECTION (J3010) As Ordered ONE
--- NOTE | 2018-11-13 10:24 | IRHP ---
[facility] IR Pre-Procedure H & P General Date of Service: Nov 13, 2018 Procedure: Same Day Surgery Interval History and Physical I have seen the patient and reviewed last H & P performed within 30 days. There is no significant interval change. History of Present Illness Chief Complaint The patient is a 73-year-old female admitted with a reason for visit of Colon Ca-Chemo. PRE-PROCEDURE DIAGNOSIS: colon ca HEART: normal rate. LUNGS: normal breathing at rest. ASA Classification ASA Classification: II-Mild systemic disease Mallampati Score: I NPO: Yes Problems with prior sedation: No Obstructive Sleep Apnea: No Allergies Coded Allergies: promethazine (Verified Allergy, Intermediate, hives, 09/10/18) Home Medications Scheduled Acyclovir (Acyclovir), 1 CAP PO 5XD, (Reported) Allopurinol (Allopurinol), 3 TAB PO DAILY, (Reported) Aspirin (Aspirin EC), 81 MG PO DAILY, (Reported) Atenolol (Atenolol), 1 TAB PO DAILY, (Reported) Cinacalcet (Sensipar), 30 MG PO 1XWK, (Reported) Ergocalciferol (Vitamin D2) (Vitamin D2), 1 TAB PO DAILY, (Reported) Ferrous Sulfate (Ferrous Sulfate), 5 ML PO DAILY, (Reported) Insulin Glargine,Hum.rec.anlog ([place] Solostar), 100 UNIT SC ACB, (Reported) Latanoprost (Xalatan), 1 DROP OS QPM, (Reported) Montelukast Sodium (Montelukast Sodium), 10 MG PO QPM, (Reported) Pravastatin Sodium (Pravastatin Sodium), 1 TAB PO DAILY, (Reported) Quinapril Hcl (Quinapril HCl), 40 MG PO DAILY, (Reported) Torsemide (Torsemide), 2 TAB PO QAM, (Reported) Torsemide (Torsemide), 1 TAB PO QPM, (Reported) SUNDAY KOTHARI MD Nov 13, 2018 10:24
--- NOTE | 2018-11-13 12:18 | POST-OPPD ---
Postoperative Procedure Note Date Of Procedure: Nov 13, 2018 Time Of Procedure: 12:16 PREOPERATIVE DIAGNOSIS: colon ca POSTOPERATIVE DIAGNOSIS: colon ca FINDINGS: patent right IJ PROCEDURE: right IJ port placed. ready to use SURGEON: milly ANESTHESIA: mod sed ESTIMATED BLOOD LOSS: < 15 ml COMPLICATIONS: none POSTOPERATIVE CONDITION: stable SUNDAY KOTHARI MD Nov 13, 2018 12:18
[2018-11-13 14:00] VITALS: BP 150/80
--- NOTE | 2018-11-13 14:07 | REP ---
IR Ultrasound and fluoroscopy-guided port placement. IR Ultrasound of the neck. IR Moderate sedation. Clinical information: Colon cancer. Physician: Dr. Funk. Procedure: The patient was advised of the benefits, risks, and alternatives of the procedure and informed consent was obtained. A time-out was performed with verification of the patient's name, MRN, site of procedure and type of procedure to be performed. The patient was positioned in the supine position on the angiographic table. The site was prepped and draped in the usual sterile fashion. Moderate sedation was performed by the physician including the presence of an independent trained observer who assisted and monitored the patient's level of consciousness and physiologic status. Following the administration of fentanyl and Versed , the physician spent 45 minutes of continuous face to face time with the patient. Ultrasound of the neck reveals a patent and compressible right internal jugular vein. A cylinder block mechanic radiograph reveals cardiomegaly. The neck and anterior chest wall were anesthetized with lidocaine. The right internal jugular vein was accessed using a microintroducer needle under ultrasound guidance, via a lateral approach. An 018 wire was advanced into the superior vena cava, the needle was removed and a microsheath was placed. An Amplatz wire was then passed into the inferior vena cava. An incision at the internal jugular vein access site and anterior chest wall were made using a scalpel. An incision was made at the anterior chest wall. A small pocket was created using a combination of blunt and sharp dissection. A tunneling device was then used to pass the catheter from the pocket to the neck puncture site. An 8-[place] [employer] Smart power port was then positioned in the pocket. The catheter was then measured and cut. The introducer sheath was exchanged for a peel-away sheath. The catheter was passed through the peel-away sheath into the internal jugular vein and the peel-away sheath was removed. The port tip was positioned at the cavoatrial junction. The port was then accessed with a Morris needle. The port flushes and aspirates well. The puncture site in the neck was closed. The chest wall incision was then closed with 2-0 Vicryl and 4-0 Monocryl. Glue and Steri-Strips were applied. A sterile dressing was then applied. The patient tolerated the procedure well and was returned to the PRU in stable condition. Estimated blood loss: <5 ml. Complications: None. Conclusion: 1. Successful placement of an 8-[place] [employer] Smart power port via the right internal jugular vein. The port is ready for immediate use. 2. Patient to follow up in IR clinic in 2 weeks. Thank you for this referral. Electronically Signed by Nisreen Funk MD 11/13/2018 02:05 P
== END ==
LOC: M IRPRO 10:15
PROVIDERS: ATTEND Nurse Practitioner Family
DX: C18.9 Malignant neoplasm of colon, unspecified (principal); I51.7 Cardiomegaly; Z88.8 Allergy status to other drugs, medicaments and biological substances; Z79.899 Other long term (current) drug therapy; Z79.82 Long term (current) use of aspirin
CPT/HCPCS: 36561; 76937; 99152; 99153; C1769; C1788; C1894; J0690; J1200; J2250; J3010

== ENCOUNTER → 2018-11-15 | Outpatient (CLI) | payer MEDICARE, OTHER ==
[~2018-11-15] MED LIST changes: -ATOR40TA75 PO; -B-12100021 PO; -ERGO80006 PO; -LIDO2.5C15 TOP; -LIDOCAINE 1% MDV 20ML VIAL As Ordered ONE; -MAGN400C2 PO; -MAGN400T14 PO; -MIDAZOLAM INJ 2 MG/2 ML VIAL (J2250) As Ordered ONE; -ONDA8TAB10 PO; -PROC10TA4 PO; -ceFAZolin 1GM INJ (J0690 PER 500MG) As Ordered ONE; -diphenhydrAMINE INJ 50MG/ML VIAL (J1200) As Ordered ONE; -fentaNYL 100 MCG/2 ML INJECTION (J3010) As Ordered ONE
--- NOTE | 2018-11-15 11:02 | REP ---
CT of the chest without IV contrast: There are no comparisons. There is a pleural-based noncalcified 18 mm lung nodule in the left lower lobe on image 56. Metastasis is a primary concern in this patient with colon carcinoma. There are no other lung nodules or masses. There are no infiltrates. There are no pleural effusions. There is no mediastinal adenopathy. There is no axillary adenopathy. The study is insensitive for hilar adenopathy in the absence of IV contrast. There is an Xexpbu-S-Jlmu catheter with the tip in the superior vena cava. The unenhanced thoracic aorta is unremarkable. Cardiac size is normal. There is no pericardial effusion. There are three a normal size lymph nodes in the mediastinal fat anterior inferior to the heart on images 71 and 72, two of which are 5 mm short axis and the third is 3 mm short axis. There is no pericardial effusion. There is focal calcified pleural plaque posterior to the sternum. The visualized unenhanced upper abdomen is unremarkable. There are surgical clips in the gallbladder fossa. Impression: There is a single 18 mm pulmonary nodule in the left lower lobe as described, concerning for metastasis in this patient with a history of colon carcinoma. There are three normal size nodes in the mediastinal fat micki-lateral to the heart on the right as described. There is focal calcified pleural plaque posterior to the sternum. Electronically Signed by Bradley Pathak MD 11/15/2018 10:55 A
== END ==
LOC: M RAD 09:37
PROVIDERS: ATTEND Nurse Practitioner Family
DX: C18.9 Malignant neoplasm of colon, unspecified (principal)

== ENCOUNTER → 2018-11-18 | Outpatient (REF) | payer MEDICARE, OTHER | LOC: M SFHCCLAY 08:26 | PROVIDERS: ATTEND Nurse Practitioner Family | DX: Z53.9 Procedure and treatment not carried out, unspecified reason (principal) ==

== ENCOUNTER → 2018-11-19 | Outpatient (REF) | payer MEDICARE, OTHER ==
[2018-11-19 17:00] LABS: BASO % 0.5 % (0.0-1.0); EOS # 0.7 10^3/uL (0.0-0.5); EOS % 9.4 % (0.0-3.0); HEMATOCRIT 37.7 % (36.0-47.0); HEMOGLOBIN 10.7 g/dl (12.0-15.5); LYMPH # 1.5 10^3/uL (1.5-5.0); LYMPH % 19.8 % (24.0-44.0); MEAN CORPUSCULAR HEMOGLOBIN 22.1 pg (27.0-33.0); MEAN CORPUSCULAR HGB CONC 28.4 g/dl (32.0-36.5); MEAN CORPUSCULAR VOLUME 77.9 fl (80.0-96.0); MONO # 0.5 10^3/uL (0.0-0.8); MONO % 6.5 % (0.0-5.0); NEUTROPHILS # 4.9 10^3/uL (1.5-8.5); NEUTROPHILS % 63.1 % (36.0-66.0); RED BLOOD COUNT 4.84 10^6/uL (4.00-5.40); WHITE BLOOD COUNT 7.7 10^3/uL (4.0-10.0)
[2018-11-19 17:18] LABS: ALBUMIN 3.8 GM/DL (3.2-5.2); ALT/SGPT 18 U/L (12-78); BILIRUBIN,TOTAL 0.8 MG/DL (0.2-1.0); BLOOD UREA NITROGEN 11 MG/DL (7-18); CALCIUM LEVEL 9.5 MG/DL (8.8-10.2); CARBON DIOXIDE LEVEL 26 MEQ/L (21-32); CHLORIDE LEVEL 105 MEQ/L (98-107); CHOLESTEROL LEVEL 174 MG/DL (<200); CHOLESTEROL RISK RATIO 3.551 (<5); CREATININE FOR GFR 0.96 MG/DL (0.55-1.30); FREE T4 1.16 NG/DL (0.76-1.46); GLOMERULAR FILTRATION RATE > 60.0 (>39); GLUCOSE, FASTING 166 MG/DL (70-100); HDL CHOLESTEROL 49 MG/DL (>40); NON-HDL-C 125 MG/DL; POTASSIUM SERUM 3.9 MEQ/L (3.5-5.1); SODIUM LEVEL 140 MEQ/L (136-145); TOTAL PROTEIN 7.6 GM/DL (6.4-8.2); TRIGLYCERIDES LEVEL 420 MG/DL (<150)
[2018-11-19 17:25] LABS: HEMOGLOBIN A1c 8.8 %
[2018-11-19 17:26] LABS: TOTAL 25(OH) VITAMIN D 28.8 NG/ML (30.0-100.0)
== END ==
LOC: M SFHCCLAY 09:35
PROVIDERS: ATTEND Nurse Practitioner Family
DX: I10 Essential (primary) hypertension (principal); E11.29 Type 2 diabetes mellitus with other diabetic kidney complication; Z13.21 Encounter for screening for nutritional disorder; E66.01 Morbid (severe) obesity due to excess calories

== ENCOUNTER → 2018-11-20 | Outpatient (CLI) | payer MEDICARE, OTHER ==
[~2018-11-20] MED LIST changes: +ATOR40TA75 PO; +ERGO80006 PO; +LIDO2.5C15 TOP; +ONDA8TAB7 PO; +PROC10TA4 PO
--- NOTE | 2018-11-21 10:08 | REP ---
PET/CT: History: Staging colon cancer. Status post right hemicolectomy 10/16/2018. 8/16 pericolonic lymph nodes positive. Comparisons: Comparison CT chest November 15, 2018. Comparison CT abdomen and pelvis September 27, 2018. TECHNIQUE: 55 minutes following the intravenous injection of a 9.03 mCi dose of F-18 FDG, three-dimensional PET scintigraphy is acquired from the skull base to the proximal thighs. Triplanar noncontrast CT scanning is acquired through the same anatomic range for attenuation correction, and image registration with scan parameters optimized to minimize radiation exposure to the patient. PET scintigraphy and CT datasets were fused and displayed on a workstation with multiplanar and projection display capability. PET/CT Findings: The 19 mm pleural-based left lower lobe pulmonary nodule seen on recent chest CT study is mildly hypermetabolic, maximum standard uptake value 4.10. There is no other abnormal intrathoracic hypermetabolic uptake. No hilar or mediastinal drea hypermetabolic uptake is appreciated. The head and neck soft tissues are unremarkable. There is a right-sided Asqgnb-Q-Lufg catheter. In the abdomen and pelvis, there is normal hepatic, splenic, genitourinary, and gastrointestinal distribution of radiotracer. No focal hypermetabolic uptake is seen in the liver. No drea hypermetabolic uptake is visible. Postoperative changes are seen post right colectomy. There is some mild postoperative FDG deposition in the anterior abdominal wall periumbilical region. Maximum standard uptake value 6.33. No other significant hypermetabolic uptake is seen in the abdomen or pelvis. Impression: The known left lower lobe pulmonary nodule is hypermetabolic. There is postoperative hypermetabolic uptake in the periumbilical region of the anterior abdominal wall. Otherwise negative PET scintigraphy. Electronically Signed by Kendall Li MD 11/21/2018 06:20 P
== END ==
LOC: M PLARAD 12:47
PROVIDERS: ATTEND Internal Medicine Medical Oncology
DX: C18.9 Malignant neoplasm of colon, unspecified (principal); R91.1 Solitary pulmonary nodule
CPT/HCPCS: 78815; A9552

== ENCOUNTER → 2018-11-29 | Outpatient (CLI) | payer MEDICARE, OTHER ==
[~2018-11-29] MED LIST changes: +LIDOCAINE 1% MDV 20ML VIAL As Ordered ONE; -ONDA8TAB7 PO; -PROC10TA4 PO
[2018-11-29 11:01] VITALS: BP 180/77
--- NOTE | 2018-11-30 17:50 | REP ---
CT-guided left lobe lung biopsy The procedure is performed by WAI Samano, under the direct supervision of Dr. Linton. The patient has a history of a metabolic left lower lobe pulmonary nodule on the PET CT dated 11/20/2018. The risks and benefits of the procedure were explained to the patient and informed consent was obtained both orally and written. Directly prior to the start of the procedure, a formal timeout was done in the exam room. The left lower lobe lung nodule was localized using CT guidance. Skin was prepped and draped in the usual sterile fashion. 5 ml of 1% lidocaine was used as a local anesthetic. Multiple attempts were made to get to the nodule, however, due to inconsistent breath holds the nodule was located in different plane. After approximately 1 hour of multiple attempts the procedure was aborted. Impression: 1. Unsuccessful left lower lobe lung biopsy. Reviewed by WAI Roland 11/29/2018 02:25 P Electronically Signed by Bradley Linton MD 11/30/2018 05:41 P
== END ==
LOC: M IRPRO 09:11
PROVIDERS: ATTEND Internal Medicine Medical Oncology
DX: R91.1 Solitary pulmonary nodule (principal); C18.9 Malignant neoplasm of colon, unspecified

== ENCOUNTER → 2018-12-03 | Outpatient (POV) | payer MEDICARE, OTHER ==
[~2018-12-03] VITALS: Ht 157.5 cm; Wt 129.5 kg
[~2018-12-03] MED LIST changes: -LIDOCAINE 1% MDV 20ML VIAL As Ordered ONE
[2018-12-03 13:55] VITALS: BP 153/70
--- NOTE | 2018-12-03 14:04 | IRPN ---
[facility] IR Progress Note IR Progress Note DATE: Dec 03, 2018 FOLLOW-UP: Few weeks status post right chest wall port placement. Port has been used without any issues. No fevers or chills. No pain or discharge. ON EXAMINATION: Right chest wall port site looks good. No redness, tenderness, fluctuance, discharge. IMPRESSION: Doing well status post port placement. No further follow-up scheduled unless initiated by patient or infusion. Thank you for this referral Allergies Coded Allergies: promethazine (Verified Allergy, Intermediate, hives, 09/10/18) VS,Fishbone, I+O VS, Fishbone, I+O Vital Signs Date Time Temp Pulse Resp B/P (MAP) Pulse Ox O2 Delivery O2 Flow Rate FiO2 12/03/18 13:55 97.3 71 18 153/70 (97) 96 Room Air SUNDAY KOTHARI MD Dec 03, 2018 14:04
== END ==
LOC: M IRPOV 13:45
PROVIDERS: ATTEND Radiology Diagnostic Radiology
DX: Z45.2 Encounter for adjustment and management of vascular access device (principal)

== ENCOUNTER → 2018-12-12 | Outpatient (CLI) | payer MEDICARE, OTHER ==
[~2018-12-12] MED LIST changes: +LIDOCAINE 1% MDV 20ML VIAL As Ordered ONE; +ONDA8TAB7 PO; +PROC10TA4 PO
--- NOTE | 2018-12-12 10:34 | REP ---
PA chest: Single view. History: Inspiration radiograph post needle biopsy of the lung. Findings: There is no visible pneumothorax or hydrothorax. An Hjtucb-W-Yxhr catheter is again noted on the right. The patient status post needle biopsy left lower lobe nodule. Heart size is normal. There are clips in right upper quadrant. Impression: No complication seen. Electronically Signed by Kendall Li MD 12/12/2018 12:56 P
[2018-12-12 11:45] VITALS: BP 143/67
--- NOTE | 2018-12-12 17:28 | REP ---
CT-GUIDED LEFT LOWER LOBE LUNG BIOPSY The procedure was performed under the direct supervision of Dr. Li. Patient has a history of A hypermetabolic nodule in the left lower lobe seen on a previous PET scan dated 11/20/2018. The risks and benefits of the procedure were explained to the patient and informed consent was obtained. The left lower lobe lung nodule was localized using CT guidance. The skin was prepped and draped in a sterile fashion. 1% lidocaine was used as a local anesthetic. Using CT guidance a 19/20 gauge coaxial needle biopsy system was inserted and advanced into the nodule. Four core biopsy samples were obtained and sent to lab. The patient tolerated the procedure well and there were no immediate complications. After the appropriate amount of monitored convalescence the patient was discharged from the department. Electronically Signed by WAI Smith 12/12/2018 03:28 P Electronically Signed by Kendall Li MD 12/12/2018 05:20 P
== END ==
LOC: M IRPRO 08:13
PROVIDERS: ATTEND Internal Medicine Medical Oncology
DX: C78.02 Secondary malignant neoplasm of left lung (principal); C18.9 Malignant neoplasm of colon, unspecified

== ENCOUNTER → 2019-01-31 | Outpatient (REF) | payer MEDICARE, OTHER ==
[~2019-01-31] MED LIST changes: +B-12100021 PO; -LIDOCAINE 1% MDV 20ML VIAL As Ordered ONE
[2019-02-03 11:46] LABS: FOLATE > 24.0 NG/ML; TOTAL 25(OH) VITAMIN D 23.5 NG/ML (30.0-100.0); VITAMIN B12 LEVEL 1105 PG/ML
== END ==
LOC: M LAB REF 17:28
PROVIDERS: ATTEND Nurse Practitioner Family
DX: R53.83 Other fatigue (principal); E55.9 Vitamin D deficiency, unspecified; D51.9 Vitamin B12 deficiency anemia, unspecified; Z79.82 Long term (current) use of aspirin; Z79.899 Other long term (current) drug therapy

== ENCOUNTER → 2019-02-17 | Outpatient (CLI) | payer MEDICARE, OTHER ==
[~2019-02-17] MED LIST changes: +GASTROGRAFIN SOLUTION 30ML (Q9963) As Ordered ONE; +ISOVUE-370 76% 100ML VIAL (Q9967) As Ordered ONE; +MAGN400T14 PO; +ONDA8TAB10 PO; -ONDA8TAB7 PO
--- NOTE | 2019-02-18 07:39 | REP ---
CT CHEST WITH IV CONTRAST: HISTORY: Restaging colon cancer. Stage IV colon cancer with a solitary pulmonary metastasis. Status post chemotherapy. Comparison chest CT study November 15, 2018. CT CONTRAST DOSE: 100 mL of intravenous Isovue 370. CT FINDINGS: The previously noted 18 mm left lower lobe pulmonary nodule is again seen, decreased in size to 15 mm in greatest dimension. The short axis dimension has decreased on axial images from 12 mm previously to 10 mm today. No new pulmonary nodule is appreciated. No other nodule is visible. No hilar or mediastinal mass or adenopathy is observed. There is some vascular calcification. No adrenal lesion is seen. There is a calcified thyroid nodule on the left. There are two or three tiny epicardial lymph nodes visible. These are unchanged. IMPRESSION: The previously noted left lower lobe nodule has decreased in size since the November 15, 2018 study. It measures 15 mm in greatest diameter. No new lesion. Electronically Signed by Kendall Li MD 02/18/2019 07:54 A
--- NOTE | 2019-02-18 07:40 | REP ---
CT ABDOMEN AND PELVIS WITH IV AND ORAL CONTRAST: HISTORY: Restaging colon cancer. Stage IV colon cancer with solitary pulmonary metastasis. Status post chemotherapy. CT CONTRAST DOSE: 100 mL of intravenous Isovue [address] study is a PET/CT from November 20, 2018. Comparison abdomen CT study September 27, 2018. CT FINDINGS: No focal liver or spleen lesion is seen. Normal adrenals are seen. No abnormality is noted in the pancreas. The gallbladder is surgically absent. There is cortical atrophy and scarring of the right kidney again noted unchanged. No renal mass lesion is observed. No retroperitoneal mass or adenopathy is seen. No mesenteric adenopathy is observed. The patient is status post partial right colectomy. No mass is seen at the level of the anastomosis. There is no anterior abdominal wall mass lesion visible. No pelvic mass or adenopathy is observed. The uterus is surgically absent. Ovarian tissue is unchanged. Bone window settings show no bony destructive lesion. No soft tissue nodule is appreciated. IMPRESSION: No evidence of mass or adenopathy. Postoperative changes including partial right colectomy cholecystectomy and hysterectomy. Electronically Signed by Kendall Li MD 02/18/2019 07:54 A
== END ==
LOC: M RAD 12:48
PROVIDERS: ATTEND Internal Medicine Medical Oncology
DX: C18.9 Malignant neoplasm of colon, unspecified (principal)
CPT/HCPCS: 71260; 74177; Q9963; Q9967

== ENCOUNTER → 2019-06-05 | Outpatient (CLI) | payer MEDICARE, OTHER ==
[~2019-06-05] MED LIST changes: +CLAR10CA3 PO; +GLYCCAP PO; -ISOVUE-370 76% 100ML VIAL (Q9967) As Ordered ONE; +ISOVUE-370 76% 100ML VIAL As Ordered ONE; +MAGN400C2 PO; -MONT10TA2 PO; +MONT10TA4 PO; +VITA500079 PO; +ZYLO300T6 PO
--- NOTE | 2019-06-05 16:15 | REP ---
CT CHEST WITH IV CONTRAST: TECHNIQUE: Axial contrast enhanced images from the thoracic inlet to the upper abdomen using 100 mL Isovue-370 intravenous contrast material with multiplanar reformations. COMPARISON: 02/17/2019 Since the prior study, the patient has had resection of the left lower lobe mass. There is linear scaring in this region. No new parenchymal nodule is seen. There is no evidence of mediastinal, hilar, or chest wall lymphadenopathy. Thoracic aorta is normal in caliber with no aneurysm or dissection. The heart is normal in size. There is no pleural or pericardial effusion. There are degenerative changes of the spine. No bone lesion is seen. IMPRESSION: There has been interval resection of left lower lobe mass. There is now postsurgical linear scarring at that location. No new lung nodule or adenopathy. Electronically Signed by Bradley Linton MD 06/05/2019 07:04 P
--- NOTE | 2019-06-05 16:19 | REP ---
CT ABDOMEN AND PELVIS WITH ORAL AND IV CONTRAST: TECHNIQUE: Axial contrast enhanced images from the lung bases to the pubic symphysis using 100 mL Isovue-370 intravenous contrast material with multiplanar reformations. COMPARISON: 02/17/2019 The liver demonstrates no evidence of mass. The patient has had a prior cholecystectomy. I do not see significant biliary dilatation. Spleen is normal in size with no intrinsic abnormality. The adrenal glands are normal. The pancreas demonstrates no mass. There is some degree of right renal atrophy. Otherwise, the kidneys are unremarkable. There is no abdominal aortic aneurysm with mild atherosclerotic calcification. There is no adenopathy. There is no free air or free fluid. There is no bowel wall thickening. There is evidence of right hemicolectomy. Small ventral hernia contains fat. No pelvic mass is seen. The patient has had prior hysterectomy. Urinary bladder is not well distended and of well evaluated. No bone lesions are seen. There are degenerative changes of the spine. IMPRESSION: No mass or adenopathy in the abdomen or pelvis. Stable exam. Electronically Signed by Bradley Linton MD 06/05/2019 07:05 P
== END ==
LOC: M RAD 11:56
PROVIDERS: ATTEND Internal Medicine Medical Oncology
DX: C18.9 Malignant neoplasm of colon, unspecified (principal); Z90.2 Acquired absence of lung [part of]; K43.9 Ventral hernia without obstruction or gangrene; Z90.710 Acquired absence of both cervix and uterus
CPT/HCPCS: 71260; 74177; J1642; Q9963; Q9967

== ENCOUNTER 2019-07-24 11:28 | Outpatient (CLI) | payer MEDICARE, OTHER ==
[~2019-07-24] VITALS: Ht 160 cm; Wt 133.0 kg
[~2019-07-24 11:28] MED LIST changes: -GASTROGRAFIN SOLUTION 30ML (Q9963) As Ordered ONE; -ISOVUE-370 76% 100ML VIAL As Ordered ONE
[2019-07-24 11:30] VITALS: BP 153/80
[2019-07-24] MEDS ORDERED: ALTEPLASE 2MG/2ML VIAL XX PRN (11:45)
[2019-07-24] MEDS ORDERED: SODIUM CHLORIDE 0.9% INJ 10 ML SYR IV PRN (12:00)
[2019-07-25] MEDS ORDERED: SODIUM CHLORIDE 0.9% INJ 10 ML SYR IV SCH (09:00)
[2019-10-10] MEDS ORDERED: LOMO2.5T PO (11:42)
[2019-10-30] MEDS ORDERED: LIDO2.5C15 TOP (11:32)
[2019-12-15] MEDS ORDERED: LORA1TAB4 PO (10:52)
== END 2019-07-24 12:30 | disposition home or self-care (01) ==
LOC: M INFU 11:28
PROVIDERS: ATTEND Radiology Diagnostic Radiology
DX: C18.9 Malignant neoplasm of colon, unspecified (principal)
CPT/HCPCS: 36593; 96523; J1642; J2997

== ENCOUNTER → 2019-10-21 | Outpatient (REF) | payer MEDICARE, OTHER ==
[~2019-10-21] MED LIST changes: +LOMO2.5T PO; +LORA1TAB4 PO
== END ==
LOC: M LAB REF 12:44
PROVIDERS: ATTEND Internal Medicine Medical Oncology
DX: C18.9 Malignant neoplasm of colon, unspecified (principal)

== ENCOUNTER → 2019-10-28 | Outpatient (POV) | payer MEDICARE, OTHER ==
--- NOTE | 2019-10-29 11:49 | IRPN ---
[facility] IR Progress Note IR Progress Note DATE: Oct 28, 2019 Patient agreed to this telephone follow-up. Duration of call 10 minutes. FOLLOW-UP: Patient with metastatic colon cancer, had port placed 1 year ago. Patient has completed chemotherapy. Port site healed well. Patient describes since finishing chemotherapy, which was a few months ago, she's noticed intermittent sharp pain below the port. This comes and goes. Sometimes she feels a burning sensation. Patient denies redness, swelling or discharge from the site. She denies port exposure. The port is under the watch of oncology. She denies no recent significant weight loss. No trauma to the area. No bruising. The pain goes away with topical lidocaine. ON EXAMINATION: No video on patient side IMPRESSION: Patient with well-healed port placed a year ago which has functioned well for chemotherapy. Patient wishes to keep the port for now as safety. She has a scan follow-up in a few months to determine if any further chemotherapies needed. The burning or intermittent shocklike sensation is probably from superficial nerve impingement. This may go away with time. Continue lidocaine cream as this is helping. Patient to call us for port removal if the symptoms are too bothersome and/or the port is no longer needed. Thank you for this referral Cc Dr. Yost Allergies Coded Allergies: promethazine (Verified Allergy, Intermediate, hives, 09/10/18) SUNDAY KOTHARI MD Oct 29, 2019 11:49
== END ==
LOC: M TMIRPOV 08:36
PROVIDERS: ATTEND Radiology Diagnostic Radiology
DX: Z45.2 Encounter for adjustment and management of vascular access device (principal); C78.5 Secondary malignant neoplasm of large intestine and rectum; Z88.8 Allergy status to other drugs, medicaments and biological substances

== ENCOUNTER → 2019-11-20 | Outpatient (CLI) | payer MEDICARE, OTHER ==
[~2019-11-20] MED LIST changes: -LORA1TAB4 PO
== END ==
LOC: M LABSMTC 09:59
PROVIDERS: ATTEND Anesthesiology
DX: Z01.812 Encounter for preprocedural laboratory examination (principal); Z20.828 Contact with and (suspected) exposure to other viral communicable diseases
CPT/HCPCS: C9803; U0003

== ENCOUNTER 2019-11-25 12:07 | Day surgery (SDC) | payer MEDICARE, OTHER ==
[~2019-11-25] VITALS: Ht 157.5 cm; Wt 131.5 kg
[~2019-11-25 12:07] MED LIST changes: +NS 1,000 ML IV ONE
[2019-11-25] MEDS ORDERED: propofoL 500 MG/50 ML VIAL As Ordered ONE (13:03)
[2019-11-25] MEDS ORDERED: LIDOCAINE 2% 100MG/5ML SDV (FOR ANES.) As Ordered ONE (13:05)
[2019-11-25] MEDS ORDERED: PHENYLephrine HCL 500 MCG/5 ML (100MCG/ML) SYRINGE (J2370) As Ordered ONE (13:22)
[2019-11-25] MEDS ORDERED: ePHEDrine SULFATE 25 MG/5 ML(5MG/ML) SYRINGE As Ordered ONE (13:31)
--- NOTE | 2019-11-25 13:45 | ROOR ---
Patient Name: Mimi Jones Procedure Date: 11/25/2019 1:17 PM Date of : 1945 Age: 74 Room: [facility] Gender: Female Note Status: Finalized Procedure: Colonoscopy Indications: High risk colon cancer surveillance: Personal history of colon cancer, Last colonoscopy: 2018, Patient one year post op from right hemicolectomy for cancer. Providers: Axel Villela MD Referring MD: Rosangela Trinidad NP Requesting Provider: Medicines: Monitored Anesthesia Care Complications: No immediate complications. Procedure: Pre-Anesthesia Assessment: - Prior to the procedure, a History and Physical was performed, and patient medications and allergies were reviewed. The patient is competent. The risks and benefits of the procedure and the sedation options and risks were discussed with the patient. All questions were answered and informed consent was obtained. Patient identification and proposed procedure were verified by the physician, the nurse and the log feeder in the procedure room. Mental Status Examination: alert and oriented. CV Examination: regular rate and rhythm. Prophylactic Antibiotics: The patient does not require prophylactic antibiotics. Prior Anticoagulants: The patient has taken no previous anticoagulant or antiplatelet agents. ASA Grade Assessment: III - A patient with severe systemic disease. After reviewing the risks and benefits, the patient was deemed in satisfactory condition to undergo the procedure. The anesthesia plan was to use monitored anesthesia care (MAC). Immediately prior to administration of medications, the patient was re-assessed for adequacy to receive sedatives. The heart rate, respiratory rate, oxygen saturations, blood pressure, adequacy of pulmonary ventilation, and response to care were monitored throughout the procedure. The physical status of the patient was re-assessed after the procedure. The Colonoscope was introduced through the anus and advanced to the ileocolonic anastomosis. The colonoscopy was performed without difficulty. The patient tolerated the procedure well. The quality of the bowel preparation was good. Findings: The perianal and digital rectal examinations were normal. There was evidence of a prior functional end-to-end ileo-colonic anastomosis in the proximal transverse colon. This was patent and was characterized by healthy appearing mucosa. The anastomosis was not traversed. Impression: - Patent functional end-to-end ileo-colonic anastomosis, characterized by healthy appearing mucosa. - No specimens collected. Recommendation: - Discharge patient to home. - Resume previous diet. - Continue present medications. - Repeat colonoscopy in 2 years for surveillance. Axel Villela MD Axel Villela MD 11/25/2019 1:44:57 PM Electronically signed by Axel Villela MD Number of Addenda: 0 Note Initiated On: 11/25/2019 1:17 PM Estimated Blood Loss: Estimated blood loss: none.
[2019-11-25 14:10] VITALS: BP 146/75
== END 2019-11-25 14:13 | disposition home or self-care (01) ==
LOC: M OPP 12:07
PROVIDERS: ATTEND Surgery
DX: Z85.038 Personal history of other malignant neoplasm of large intestine (principal); Z08 Encounter for follow-up examination after completed treatment for malignant neoplasm; Z98.0 Intestinal bypass and anastomosis status; Z79.82 Long term (current) use of aspirin; Z79.84 Long term (current) use of oral hypoglycemic drugs; Z79.899 Other long term (current) drug therapy; Z85.118 Personal history of other malignant neoplasm of bronchus and lung; Z92.21 Personal history of antineoplastic chemotherapy; Z88.5 Allergy status to narcotic agent; Z88.8 Allergy status to other drugs, medicaments and biological substances
CPT/HCPCS: 45378; J2370

== ENCOUNTER → 2019-12-05 | Outpatient (CLI) | payer MEDICARE, OTHER ==
[~2019-12-05] MED LIST changes: +GASTROGRAFIN SOLUTION 30ML (Q9963) As Ordered ONE; +ISOVUE-370 76% 100ML VIAL As Ordered ONE; +LORA1TAB4 PO; -NS 1,000 ML IV ONE
--- NOTE | 2019-12-05 13:31 | REP ---
INDICATION: METASTATIC COLON CA --SENT TO WAIT BY FILE ROOM. COMPARISON: Comparison CT study of the chest is from June 05, 2019.. TECHNIQUE: Helical scanning is acquired and 3 mm axial images are re-formatted. Coronal and sagittal MPR images are generated and reviewed. CT contrast dose is 100 mL of intravenous Isovue 370. FINDINGS: Preliminary digital business and marketing teacher radiograph is unremarkable. A right-sided Sgvbkc-B-Ueak catheter is noted. There is coarse linear fibrosis and a suture line in the left lower lobe suggesting previous metastectomy. No pulmonary nodule or mass lesion is observed. The fibrosis in the left lower lobe is unchanged from the comparison study. There is no evidence of hilar or mediastinal mass or adenopathy. There is a dense calcification in the tiny nodule in the left lobe of the thyroid. This is unchanged. No axillary mass or adenopathy is observed. Minimal vascular calcification is seen along the course of the left coronary artery. IMPRESSION: Status post thoracotomy changes left lower lobe. Otherwise no active cardiopulmonary disease. <Electronically signed by Onesimo Li > 12/05/19 [id number]
--- NOTE | 2019-12-05 13:40 | REP ---
INDICATION: METASTATICCOLON CA. COMPARISON: Comparison CT abdomen pelvis June 05, 2019.. TECHNIQUE: Helical scanning is acquired and 3 mm axial images re-formatted. Coronal and sagittal MPR images are generated. A delayed postcontrast acquisition is carried out as well. FINDINGS: Preliminary radar tester view is unremarkable. There are clips in the gallbladder fossa post cholecystectomy. There is mild diffuse fatty infiltration of the liver. No focal liver lesion is appreciated. No splenic lesion is seen. No abnormality is noted in the pancreas. The adrenal glands are normal bilaterally. There is renal cortical parenchymal scarring and atrophy in the right kidney unchanged. No renal mass or hydronephrosis is seen. No calculus is observed. No retroperitoneal mass or adenopathy is seen. No free fluid is seen. Uterus is surgically absent. There is an irregular soft tissue density 1.6 cm in diameter in the left pericolic gutter anterior to what appears to be the left ovary and posterior to the descending colon sigmoid colon junction. This is visible in retrospect on prior CT studies and is essentially unchanged from September 27, 2018. There is a fibrous band linking this to the colon in this may reflect pericolonic inflammatory change. No other soft tissue nodule is seen within the abdomen. Postoperative changes are seen along the anterior abdominal wall. No bony destructive lesion is seen. IMPRESSION: Status post cholecystectomy hysterectomy and laparotomy. Right colon resection. There is a para colonic 1.6 cm irregular density at the left pelvic sidewall pericolic gutter region adjacent to the descending colon and anterior to what appears to be the ovary on the left. This is of uncertain significance but has not changed since the September 27, 2018 study. No other evidence of mass or adenopathy. <Electronically signed by Onesimo Li > 12/05/19 [id number]
== END ==
LOC: M RAD 09:30
PROVIDERS: ATTEND Internal Medicine Medical Oncology
DX: C18.9 Malignant neoplasm of colon, unspecified (principal)
CPT/HCPCS: 71260; 74177; Q9963; Q9967

== ENCOUNTER → 2019-12-23 | Outpatient (CLI) | payer MEDICARE, OTHER ==
[~2019-12-23] MED LIST changes: -GASTROGRAFIN SOLUTION 30ML (Q9963) As Ordered ONE; -ISOVUE-370 76% 100ML VIAL As Ordered ONE
== END ==
LOC: M PLARAD 08:32
PROVIDERS: ATTEND Internal Medicine Medical Oncology
DX: C18.2 Malignant neoplasm of ascending colon (principal); Z53.9 Procedure and treatment not carried out, unspecified reason

== ENCOUNTER → 2020-01-06 | Outpatient (CLI) | payer MEDICARE, OTHER ==
[~2020-01-06] MED LIST changes: +ACYC200S4 PO; +D31000TA2 PO; +DEXA4TA PO; +MONT10TA10 PO; -MONT10TA4 PO
--- NOTE | 2020-01-06 19:27 | REP ---
INDICATION: RESTAGING ASCENDING COLON CA C18.2. Status post hemicolectomy October 2018. Patient underwent metastasectomy of a solitary pulmonary metastatic focus in April of 2019. COMPARISON: Comparison PET-CT study November 20, 2018.. Comparison CT study of chest, abdomen and pelvis are from December 05, 2019. TECHNIQUE: Fifty minutes following the intravenous injection of a 9.10 mCi dose of F-18 FDG, three-dimensional PET scintigraphy is acquired from the skull base to the proximal thighs. Triplanar noncontrast CT scanning is acquired through the same anatomic range for attenuation correction, and image registration with scan parameters optimized to minimize radiation exposure to the patient. PET scintigraphy and CT datasets were fused and displayed on a workstation with multiplanar and projection display capability. FINDINGS: Head and neck soft tissues are unremarkable. There is normal variant periarticular arthropathy associated uptake at the shoulders. There is an Oiiexb-K-Fija catheter in place via the right side. Postthoracotomy changes with linear fibrosis are seen in the left lower lobe. No abnormal hypermetabolic uptake is seen within the thorax. There is no abnormal hypermetabolic uptake in the liver. Post cholecystectomy clips are noted. No abnormal uptake is seen around the right colonic anastomosis status post right hemicolectomy. No retroperitoneal adenopathy or hypermetabolic uptake is seen. In the left pelvis adjacent to the sigmoid colon, there is a small focus of hypermetabolic uptake in the pericolonic soft tissue density seen on recent CT study. Maximum standard uptake value here is 5.30. There is similar degree of avidity in the rectosigmoid colon, maximum SUV value 5.35. These areas are higher than the remainder of the colonic background mucosal uptake. This ranges up to 2.99. No other abnormal hypermetabolic uptake is seen in the abdomen or pelvis. IMPRESSION: No abnormal hypermetabolic uptake is seen above the diaphragm in the chest. No liver lesion is seen. There is a focus of hypermetabolic uptake in the pericolonic soft tissues along the left pelvic sidewall just superior to the sigmoid colon. This is of uncertain significance. I cannot exclude a small metastatic deposit here. Uptake in the rectosigmoid region may be physiologic as there is no evidence of mass effect here. Otherwise negative. <Electronically signed by Onesimo Li > 01/06/200
== END ==
LOC: M PLARAD 09:30
PROVIDERS: ATTEND Internal Medicine Medical Oncology
DX: C18.2 Malignant neoplasm of ascending colon (principal)
CPT/HCPCS: 78815; A9552

== ENCOUNTER → 2020-02-11 | Outpatient (CLI) | payer MEDICARE, OTHER ==
[~2020-02-11] MED LIST changes: -ACYC200S4 PO; -D31000TA2 PO; -DEXA4TA PO; +LIDOCAINE 1% MDV 20ML VIAL As Ordered ONE; -MONT10TA10 PO; +MONT5TAB2 PO; +SODIUM BICARBONATE 8.4% INJ 50MEQ 50 ML VIAL As Ordered ONE
[2020-02-11 11:37] VITALS: BP 164/84
--- NOTE | 2020-02-11 12:25 | REP ---
INDICATION: LT PELVIC SIDE WALL LESION ADJACENT TO SIGMOID. COMPARISON: None. TECHNIQUE: The procedure is performed by [facility], under the direct supervision of Dr. Linton. The risks and benefits of the procedure were explained to the patient and informed consent was obtained both orally and written. Directly prior to the start of the procedure, a formal timeout was done in the exam room. The left pelvic sidewall mass was localized using CT guidance. Skin was prepped and draped in the usual sterile fashion. Six ml of buffered lidocaine was used as a local anesthetic. FINDINGS: Using CT guidance a 19/20 gauge coaxial needle biopsy system was inserted and advanced into the left pelvic mass. Eight core biopsy samples were obtained and sent to the lab. CT images obtained directly after the biopsy show no evidence of hematoma, or evidence of perforated bowel.. After the appropriate amount of monitored convalescence the patient was discharged from the department. IMPRESSION: CT-guided left pelvic mass biopsy. <Electronically signed by Sweta Celestin > 02/11/20 1204 <Electronically signed by Bradley Linton > 02/11/20 1221
== END ==
LOC: M IRPRO 08:00
PROVIDERS: ATTEND Internal Medicine Medical Oncology
DX: C79.89 Secondary malignant neoplasm of other specified sites (principal); D01.0 Carcinoma in situ of colon
CPT/HCPCS: 20206; 77012; 88305; 88342; J1642

== ENCOUNTER → 2020-03-10 | Outpatient (REF) | payer MEDICARE, OTHER ==
[~2020-03-10] MED LIST changes: +ACYC200S4 PO; +D31000TA2 PO; +DEXA4TA PO; -LIDOCAINE 1% MDV 20ML VIAL As Ordered ONE; -SODIUM BICARBONATE 8.4% INJ 50MEQ 50 ML VIAL As Ordered ONE
== END ==
LOC: M LAB REF 14:53
PROVIDERS: ATTEND Internal Medicine Medical Oncology
DX: R19.8 Other specified symptoms and signs involving the digestive system and abdomen (principal)

== ENCOUNTER 2020-03-11 11:08 | Inpatient (IN) | payer MEDICARE, OTHER ==
[~2020-03-11] VITALS: Ht 167.6 cm; Wt 126.2 kg
[~2020-03-11 11:08] MED LIST changes: -ACYC200S4 PO; +MONT10TA10 PO; -MONT5TAB2 PO
[2020-03-11] MEDS ORDERED: NS 1,000 ML IV ONE (11:30)
[2020-03-11 11:50] LABS: HEMATOCRIT 44.2 % (36.0-47.0); HEMOGLOBIN 15.2 g/dl (12.0-15.5); MEAN CORPUSCULAR HGB CONC 34.4 g/dl (32.0-36.5); PLATELET COUNT, AUTOMATED 204 10^3/uL (150-450); RED BLOOD COUNT 4.91 10^6/uL (4.00-5.40)
[2020-03-11 11:54] LABS: WHITE BLOOD COUNT 23.7 10^3/uL (4.0-10.0)
[2020-03-11 12:14] LABS: ATYPICAL LYMPH 9 % (0-5); EOSINOPHILS 3 % (0-3); LYMPHOCYTES 5 % (16-44); MONOCYTES 7 % (0-5); NEUTROPHILS 60 % (28-66); PLATELET ESTIMATE NORMAL (NORMAL)
[2020-03-11 12:26] LABS: ALBUMIN 2.7 GM/DL (3.2-5.2); BILIRUBIN,DIRECT 0.2 MG/DL (0.0-0.2); BILIRUBIN,TOTAL 0.6 MG/DL (0.2-1.0); CALCIUM LEVEL 9.3 MG/DL (8.8-10.2); CREATININE FOR GFR 2.78 MG/DL (0.55-1.30); GLOMERULAR FILTRATION RATE 17.8 (>39); POTASSIUM SERUM 4.2 MEQ/L (3.5-5.1); TOTAL PROTEIN 5.3 GM/DL (6.4-8.2)
[2020-03-11] MEDS ORDERED: NS 1,000 ML IV SCH (13:15)
--- NOTE | 2020-03-11 13:25 | HPEPDOC ---
[facility] Medical History & Physical Date of Admission Mar 11, 2020 Date of Service: Mar 11, 2020 History and Physical CHIEF COMPLAINT: diarrhea HISTORY OF PRESENT ILLNESS: 74 year old female with past medical history including metastatic colon CA currently on chemo s/p resection. One week ago she had minimal diarrhea, but received chemo last week, which worsened her diarrhea. She followed up with oncology yesterday, and received some IV fluids. She returned for follow up today, and was found to be significantly orthostatic. In the ED she again was found to be orthostatic. Stool studies were sent by oncology, and additional CDiff sent by the ED. She has a notable leukocytosis, however she did receive neupogen on 03/04/20. She voices no other medical complaints. She denies chest pain, abdominal pain, N/V. PAST MEDICAL HISTORY: #metastatic colon CA with lungs mets #DM #HTN #HLD #glaucoma #gout #vertigo/Meniere's disease #CKD #morbid obesity PAST SURGICAL HISTORY: #colon resection 2018 ALLERGIES: Please see below. REVIEW OF SYSTEMS: Negative except as per HPI. HOME MEDICATIONS: Please see below. PHYSICAL EXAMINATION: VITAL SIGNS: See below General: NAD, lying comfortably in bed HEENT: NC/AT, EOMI Lungs: CTA B/L Heart: +S1S2, RRR Abd: soft, obese, NT, +BS Ext: trace edema LABORATORY DATA: See below. MICROBIOLOGY: Please see below. A/P: 74 year old female with PMHx including colon CA/resection currently receiving chemo, admitted for diarrhea, dehydration, CARMELO, orthostatic hypotension. #diarrhea - stool studies pending #CARMELO - pre-renal - IV fluids for now #leukocytosis - possible secondary to neupogen - no obvious signs/symptoms of infection - continue to follow clinically #orthostasis - IV fluids - PT/OT #DVT prophylaxis Vital Signs Vital Signs Date Time Temp Pulse Resp B/P (MAP) Pulse Ox O2 Delivery O2 Flow Rate FiO2 03/11/20 12:12 58 115/68 (84) 63 75/43 (54) 03/11/20 11:17 95.7 16 03/11/20 11:14 Room Air Laboratory Data Labs 24H Laboratory Tests 2 03/11/20 11:33: Neutrophils (%) (Auto) , Nucleated Red Blood Cells % (auto) 0.0, Neutrophils 60, Band Neutrophils 16H, Lymphocytes (Manual) 5L, Monocytes (Manual) 7H, Eosinophils (Manual) 3, Atypical Lymphocytes 9H, Platelet Estimate NORMAL, Anion Gap 11, Glomerular Filtration Rate 17.8L, Calcium Level 9.3, Total Bilirubin 0.6, Direct Bilirubin 0.2, Aspartate Amino Transf (AST/SGOT) 11, Alanine Am inotransferase (ALT/SGPT) 12, Alkaline Phosphatase 119H, Total Protein 5.3L, Albumin 2.7L, Albumin/Globulin Ratio 1.0L, Lipase 70L CBC/BMP Laboratory Tests 03/11/20 11:33 Home Medications Scheduled Allopurinol (Zyloprim) 300 Mg Tablet, 300 MG PO DAILY Aspirin (Aspirin EC) 81 Mg Tablet.dr, 81 MG PO DAILY Atenolol (Atenolol) 25 Mg Tablet, 25 MG PO DAILY Cholecalciferol (Vitamin D3) (Vitamin D3) 1,000 Unit Tablet, 5,000 UNITS PO BID Cinacalcet (Sensipar) 30 Mg Tablet, 30 MG PO 1XWK Cyanocobalamin (Vitamin B-12) (B-12) 1,000 Mcg Tablet, 1,000 MCG PO Q2D Dexamethasone (Dexamethasone) 4 Mg Tablet, 4 TAB PO DAILY Take one tab po daily x2 days post chemo Insulin Glargine,Hum.rec.anlog (Syeda Nguyen) 300 Unit/1 Ml Insuln.pen, 110 UNIT SC DAILY Montelukast Sodium (Montelukast Sodium) 10 Mg Tablet, 10 MG PO QHS Quinapril Hcl (Quinapril HCl) 40 Mg Tablet, 40 MG PO DAILY Torsemide (Torsemide) 20 Mg Tablet, 20 MG PO BID Scheduled PRN Acyclovir (Acyclovir) 200 Mg/5 Ml Oral.susp, 5 ML PO TID PRN for FLARE UP Diphenoxylate HCl/Atropine (Lomotil 2.5-0.025 mg Tablet) 1 Each Tablet, 1 TAB PO BIDP PRN for DIARRHEA Lorazepam (Lorazepam) 1 Mg Tablet, 1-2 TAB PO DAILYPRN PRN for ANXIETY Ondansetron HCl (Ondansetron HCl) 8 Mg Tablet, 8 MG PO Q12H PRN for NAUSEA TAKE ONE TABLET EVERY 6 HOURS NEEDED FOR NAUSEA. Prochlorperazine Maleate (Prochlorperazine Maleate) 10 Mg Tablet, 10 MG PO Q6H PRN for NAUSEA OR VOMITING Allergies Coded Allergies: promethazine (Verified Allergy, Intermediate, hives, 09/10/18) acetaminophen (Verified Adverse Reaction, Unknown, DECREASED BLOOD PRESSURE, 11/18/19) hydrocodone (Verified Adverse Reaction, Unknown, DECREASED BLOOD PRESSURE, 11/18/19) A-FIB/CHADSVASC A-FIB History Current/History of A-Fib/PAF?: No CAITLIN WASHINGTON MD Mar 11, 2020 13:25
[2020-03-11] MEDS ORDERED: ACYC200S4 PO (14:30)
[2020-03-11] MEDS ORDERED: GLUCOSE 4GM CHEW TABLET PO PRN (14:45)
[2020-03-11] MEDS ORDERED: DEXTROSE 50% 50 ML SYRINGE IV PRN (14:45)
[2020-03-11] MEDS ORDERED: GLUCAGON INJ 1MG VIAL SC PRN (14:45)
[2020-03-11] MEDS ORDERED: PROCHLORPERAZINE 5 MG TAB (S0183) PO PRN (14:45)
[2020-03-11] MEDS ORDERED: ONDANSETRON 4 MG TAB PO PRN (14:45)
--- OUTSIDE RECORDS SUMMARY | 2020-03-11 15:02 | CCD | Summary of Care ---
Author Author [facility] Address Unknown Phone Unavailable Care Team Providers Care Burling And Joining Supervisor Name Role Phone Rosangela Trinidad OPERATIONS ENGINEER PCP Reason for Visit * Reason Comments Follow-up Encounter Details Care Team Description Date Type Department Rom Schneider DO [address] [facility] Room [facility] [place], [place] [id number] Colon cancer metastasized to lung (Prima ry Dx) 12/15/2019 Telemedicine Multidisciplinary Programs [address] [facility] 3rd [place] [id number] Allergies Comments Active Allergy Reactions Severity Noted Date Blood pressure dropped very low Naloxone Hcl Other (See High 03/17/2019 Comments) Promethazine Hcl Rash Low 03/17/2019 documented as of this encounter (statuses as of 12/20/2019) Medications End Date Status Medication Sig Dispensed Refills Start Date Active Atenolol 25 MG Oral Take 25 mg by 0 Tablet (TENORMIN) mouth every morning Active Torsemide 20 MG Oral Take 20 mg by 0 Tablet (DEMADEX) mouth Twice Daily Active Allopurinol 300 MG Oral Take 300 mg 0 Tablet (ZYLOPRIM) by mouth every morning Active VITAMIN D PO Take 5,000 0 Units by mouth Twice Daily Active Vitamin B-12 500 MCG Oral Take 500 mcg 0 Tablet (CYANOCOBALAMIN) by mouth every other day AM Active MAGNESIUM OXIDE PO Take 800 mg 0 by mouth every other day AM (liquid) Active QUINAPRIL HCL PO Take 4 mg by 0 mouth every evening Active Atorvastatin Calcium 40 Take 40 mg by 0 MG Oral Tablet (LIPITOR) mouth every evening Active Aspirin 81 MG Oral Tablet Take 81 mg by 0 mouth every evening Active Montelukast Sodium 10 MG Take 10 mg by 0 Oral Tablet (SINGULAIR) mouth nightly Active Cinacalcet HCl 30 MG Oral Take 15 mg by 0 Tablet (SENSIPAR) mouth twice a week Sunday & Active Latanoprost 0.005 % Place 1 drop 0 Ophthalmic Solution into the left (XALATAN) eye nightly Active Insulin Glargine (TOUJEO Inject 100 0 SOLOSTAR SC) Units into the skin every morning before breakfast Active Ondansetron HCl 8 MG Oral Take 8 mg by 0 Tablet (ZOFRAN) mouth every 8 (eight) hours as needed for Nausea or Vomiting Active Prochlorperazine Maleate Take 10 mg by 0 10 MG Oral Tablet mouth every 6 (COMPAZINE) (six) hours as needed Active UNABLE TO FIND Inject into 0 the vein every 14 (fourteen) days folfox: Last had 03/03/19 Active Pegfilgrastim (NEULASTA Inject into 0 SC) the skin Patch every 2 weeks with Chemo (last 03/03/19) Active Acetaminophen 500 MG Oral Take 1,000 mg 0 Tablet (TYLENOL) by mouth every 6 (six) hours as needed for Pain documented as of this encounter (statuses as of 12/20/2019) Active Problems Problem Noted Date Colon cancer metastasized to lung 04/18/2019 Environmental allergies 04/18/2019 Cataract 04/18/2019 Glaucoma 04/18/2019 Metastatic colorectal cancer 03/21/2019 Overview: Added automatically from request for [facility] [id number] Morbid obesity with BMI of 50.0-59.9, a dult Hypertension Hyperlipidemia Gout documented as of this encounter (statuses as of 12/20/2019) Social History Date Tobacco Use Types Packs/Day Years Used Never Smoker Smokeless Tobacco: Never Used Drinks/Week oz/Week Comments Alcohol Use Not Currently Sex Assigned at Date Recorded Female 03/17/2019 1:24 PM EST documented as of this encounter Last Filed Vital Signs Not on filedocumented in this encounter Progress Notes * Rom Schneider, - 12/15/2019 3:28 PM EST [facility] Division of Thoracic Surgery THIS IS A TELEMEDICAL VISIT The patient was informed of the risks including security breech, technological f ailure, inability to perform a comprehensive physical exam which could delay or prevent an accurate diagnosis, and potential complications from treatment decisi ons rendered over a telemedical platform. The patient understands and consented to the use of tele-health services. Videochat connection was used. The patient was located at home and I was located in my office at [facility]. Mrs. Jones is a 74-year-old female with a history of metastatic colon cancer. I performed a metastasectomy on her in April 2019. She has subsequently recover ed well. She presents today to discuss her interval chest imaging. She denies any detriment with regard to her breathing. She states that overall she feels w ell. She recently visited with her medical oncologist, Dr. Yost, who gave her a clear bill of health with the exception of a mildly elevated CEA. She states that she has no residual pain or issues regarding her left chest and her prior operation. As this is a telehealth visit, a physical exam was not performed. I have person alfie reviewed the patient's cross-sectional imaging obtained on December 05, 2019 . I have compared this to her prior imaging from November 15, 2018. The previou sly present peripheral lung nodule is now absent. There is a staple line withou t evidence of residual thickening or nodularity. There is no pleural effusion. There is no pneumothorax. In summary, Mrs. Jones is a 74-year-old female who has undergone a pulmonary me tastasectomy for metastatic colorectal cancer. The lesion was completely resect ed with negative margins. Her interval imaging demonstrates no evidence of intr athoracic recurrence. I understand that the patient has been scheduled for a re peat PET scan given her mild elevation of her CEA. I would agree with that asse ssment and plan. I believe that further thoracic imaging should be obtained as part of her regular surveillance. I am more than happy to continue to follow th e patient, but in order to limit her need for additional imaging or doctor's vis its, I think it is reasonable for her to be followed by Dr. Yost moving forwar d. The patient was appreciative and understanding of that. We will plan to see her on an as-needed basis should any additional pulmonary abnormalities be iden tified. I spent 8 minutes with the patient. More than 50% of the visit was spent on revi duckworth the above mentioned imaging with the patient and counseling the patient ab out the assessment and plan as outlined. documented in this encounter Plan of Treatment Health Maintenance Due Date Last Done Comments MMR Vaccines (1 of 1 - 05/15/1946 Standard series) Varicella Vaccines (1 of 05/15/1946 2 - 2-dose childhood series) Pneumococcal Vaccine: 1951 Pediatrics (0 to 5 Years) and At-Risk Patients (6 to 64 Years) (1 of 3 - PCV13) Zoster Vaccines (1 of 2) 1996 Osteoporosis Screening 2 05/15/2011 yr Pneumococcal Vaccine: 65+ 05/15/2011 Years (1 of 1 - PPSV23) DTaP,Tdap,and Td Vaccines 05/21/2019 11/19/2018, (3 - Td) 12/29/2009 Breast Cancer Screening 2 11/03/2019 11/02/2017 years Influenza Vaccine 11/06/2019 11/19/2018, 11/19/2018, 11/14/2017, Additional history exists Colon Cancer Screening 10 10/09/2029 10/10/2019, yrs 05/05/2019, 04/18/2019, Additional history exists Hepatitis C Screening (B. Completed 04/19/2019 [id number]) HIB Vaccines Aged Out No longer eligible based on patient's age to complete this topic Hepatitis A Vaccines Aged Out No longer eligibl e based on patient's age to complete this topic Hepatitis B Vaccines Aged Out No longer eligibl e based on patient's age to complete this topic IPV Vaccines Aged Out No longer eligible based on patient's age to complete this topic documented as of this encounter Results Not on filedocumented in this encounter Visit Diagnoses Diagnosis Colon cancer metastasized to lung - Adrienne cedillo Malignant neoplasm of colon, unspecifie d site documented in this encounter
--- OUTSIDE RECORDS SUMMARY | 2020-03-11 15:02 | CCD ---
Author Author [facility] Organization [facility] Address Unknown Phone Unavailable Care Team Providers Care Senior It Assistant Name Role Phone Rosangela Trinidad Unavailable PROBLEMS Type Condition ICD9-CM Code [id number] Code Onset Dates Condition S tatus SNOMED Code Notes Problem [facility]FP current use of insulin Z79.4 Active 728192308 Problem Glaucoma of both eyes, unspecified glaucoma type H 40.9 Active 17222885 Problem Type 2 diabetes mellitus with other diabetic kid bernardo complication E11.29 Active 68025735 Problem Morbid (severe) obesity due to excess calories E66 .01 Active 871750147 Problem Meniere''s disease, unspecified laterality H81.09 Active 15938325 Problem Chronic arthritis M19.90 Active 53042357 Problem Other hyperlipidemia E78.4 Active 57672939 Problem Adenocarcinoma of colon C18.9 Active 67025191 1 Problem Essential hypertension I10 Active 87557882 Problem Hearing loss of right ear, unspecified hearing loss type H91.91 Active 666861151 Problem Mixed hyperlipidemia E78.2 Active 990373123 Problem First degree AV block I44.0 Active 476547399 Problem CKD (chronic kidney disease), stage III N18.3 Active 979554159 ALLERGIES Allergen (clinical drug ingredient) Drug/Non Drug Allergy do cumented on EMR Reaction Allergy Type Onset Date Status promethazine Phenergan([facility] Code:[address]-83) Hives Drug Allerg y Active ENCOUNTERS from 1945 to 2020-03-01 Encounter Location Date Provider Diagnosis [address] [address] [place] [address] Feb Rosangela Trinidad IMMUNIZATIONS Vaccine Route Administration Date Status Influenza (18 yrs & older) Flublok IM Intramuscular Nov 19, 2018 Administered Influenza (18 yrs & older) Flublok IM Intramuscular Nov 14, 2017 Administered TDAP 0.5mL (Boostrix) IM Intramuscular Nov 19, 2018 Administe red Influenza (6mo & up) Fluzone Unknown Dec 20, 2016 Adm inistered SOCIAL HISTORY Tobacco Use: Social History Observation Description Date Details (start date - stop date) never smoker Sex Assigned At : Social History Observation Description Sex Assigned At Unknown Audit Question Answer Notes Total Score: 0 Interpretation: Alcohol Education Language: Question Answer Notes Languages spoken: Hungarian Amish: Question Answer Notes Amish No zoroastrian beliefs that would impact health care. Sexual Hx: Question Answer Notes Had sex in the last 12 months (vaginal, oral, or anal)? No Have you ever had an STD? No Drug and Alcohol Question Answer Notes Total Score: 0 Interpretation: No problems reported Alcohol Screening: Question Answer Notes Did you have a drink containing alcohol in the past year? Ye s Points 1 Interpretation Negative How often did you have six or more drinks on one occas ion in the past year? Never (0 points) How many drinks did you have on a typica l day when you were drinking in the past year? 1 or 2 (0 points) How often did you have a drink containing alcohol in t he past year? Monthly or less (1 point) BMI Care Goal Follow-Up Question Answer Notes Above Normal BMI Follow-Up Dietary management educatio n, guidance, and counseling Tobacco Use: Question Answer Notes Are you a: never smoker REASON FOR REFERRAL No Information VITAL SIGNS No information MEDICATIONS Medication SIG (Take, Route, Frequency, Duration) Notes Start Da te End Date Status Latanoprost 0.005 % 1 drop into affected eye in the evening Ophthalmic Once a day Active Lancets Misc. - as directed E11.29 qid for 90 days Aug, Active Quinapril HCl 40 mg 1 tablet Orally once a day for 90 Active Test Strips - as directed E11.29 qid for 90 days Aug, 020 Active Vitamin B-12 500 MCG 1 tablet Orally Once a day for 30 day(s) Active Atorvastatin Calcium 40 MG 1 tablet Orally Once a day for 90 day (s) Nov, Active Sensipar 30 MG 1 tablet after a meal with food Orally Once weekly Active Aspir-81 81 MG 1 tablet Orally Once a day for 30 day(s) Active Ergocalciferol 36154 UNIT 1 capsule Orally weekly for 90 day(s) Nov, Active iron liquid Oral Active Vitamin D (Cholecalciferol) 1000 UNIT 1 capsule Orally Once a day for 30 day(s) Active Acyclovir 200 MG/5ML 5 ml Orally Three times a day for 90 day(s) Sep, Active Vitamin D3 - as directed Active Iron (Ferrous Gluconate) 325 MG as directed Orally Active Blood Pressure Kit - as directed I10.0 - for 30 day(s) Active Montelukast Sodium 10 MG 1 tablet in the evening Orally Daily for 90 Active Torsemide 20 MG 2 tablets in morning Orally as directed Active Toujeo SoloStar 300 UNIT/ML 110 units before breakfast Subcutaneous Daily for 90 days Active Torsemide 20 MG 2 in the morning, 1 in the e vening Orally as directed for 90 day(s) Active Allopurinol 300 MG 1 tablet Orally Daily for 90 Active Glucometer as directed e11.29 - for 30 days Aug, Active Atenolol 25 MG 1 tablet Orally Once a day for 90 days Active Contour Next Test - as directed In Vitro qid for 90 Active PROCEDURES No Information RESULTS No Results REASON FOR VISIT Need Refills MEDICAL (GENERAL) HISTORY Type Description Date Medical History DM Medical History HTN Medical History GLAUCOMA: Dr. Miranda Medical History ELEVATED CHOL Medical History GOUT Medical History VIT D DEF Medical History HERPES Medical History Hyperparathyroidism: Nephro Medical History Vertigo, Menieres disease: E NT, Audiology balance therapy, Neurology Medical History Morbid Obesilty Medical History CKD: Dr. Newell Medical History Colon cancer Surgical History cholecystectomy Surgical History HYSTER, WITH UNILATERAL OOPHORECTOMY Surgical History COLONOSCOPY: Dr. Balderas 2002 Surgical History Right Cataract: Jose 2000 Surgical History left cataract, implant Surgical History bilateral glaucoma surgery: jose Surgical History T&A Surgical History Colectomy- Dr. Villela 11/08 Surgical History right CW portacath Hospitalization History Surgery Goals Section No Information Health Concerns No Information MEDICAL EQUIPMENT No Information MENTAL STATUS No Information FUNCTIONAL STATUS No Information ASSESSMENTS No Information PLAN OF TREATMENT Medication Medication Name Sig Start Date Stop Date Atenolol 25 MG 1 tablet Orally Once a day for 90 days Glucometer as directed e11.29 - for 30 days Aug, Toujeo SoloStar 300 UNIT/ML 110 units before breakfast Subcutaneous Daily for 90 days Acyclovir 200 MG/5ML 5 ml Orally Three times a day for 90 day(s) Sep, Torsemide 20 MG 2 in the morning, 1 in the e vening Orally as directed for 90 day(s) Test Strips - as directed E11.29 qid for 90 days Aug, Contour Next Test - as directed In Vitro qid for 90 Blood Pressure Kit - as directed I10.0 - for 30 day(s) Atorvastatin Calcium 40 MG 1 tablet Orally Once a day for 90 day(s) Nov, Lancets Misc. - as directed E11.29 qid for 90 days Aug, Montelukast Sodium 10 MG 1 tablet in the evening Orally Daily fo r 90 Quinapril HCl 40 mg 1 tablet Orally once a day for 90 Allopurinol 300 MG 1 tablet Orally Daily for 90 Next Appt Details Provider Name:Rosangela Trinidad, 2020- 3-10 01:15:00 PM, [address] [place], [address], Insurance Providers Payer Name Payer Address Payer Phone Insured Name Patient Relati onship to Insured Coverage Start Date Coverage End Date MEDICARE Part A and B [address] [facility][1] [phone] JAZMÍN PEREZ self [facility] [address] [facility] [phone] JAZMÍN PEREZ self
--- OUTSIDE RECORDS SUMMARY | 2020-03-11 15:02 | CCD ---
Author Author [facility] Organization [facility] Address Unknown Phone Unavailable Care Team Providers Care Certification Engineer Name Role Phone Rosangela Trinidad Unavailable PROBLEMS Type Condition ICD9-CM Code SPP76-LT Code Onset Dates Condition S tatus SNOMED Code Notes Problem longterm current use of insulin Z79.4 Active 598340542 Problem Glaucoma of both eyes, unspecified glaucoma type H 40.9 Active 87195701 Problem Type 2 diabetes mellitus with other diabetic kid bernardo complication E11.29 Active 51269778 Problem Morbid (severe) obesity due to excess calories E66 .01 Active 839121233 Problem Meniere''s disease, unspecified laterality H81.09 Active 02020214 Problem Chronic arthritis M19.90 Active 68387597 Problem Other hyperlipidemia E78.4 Active 47033705 Problem Adenocarcinoma of colon C18.9 Active 71528772 1 Problem Essential hypertension I10 Active 81450087 Problem Hearing loss of right ear, unspecified hearing loss type H91.91 Active 092985084 Problem Mixed hyperlipidemia E78.2 Active 150436632 Problem First degree AV block I44.0 Active 546873043 Problem CKD (chronic kidney disease), stage III N18.3 Active 540590439 ALLERGIES Allergen (clinical drug ingredient) Drug/Non Drug Allergy do cumented on EMR Reaction Allergy Type Onset Date Status promethazine Phenergan([facility] Code:[address]-30) Hives Drug Allerg y Active ENCOUNTERS from 1945 to 2020-02-16 Encounter Location Date Provider Diagnosis [address] [address] [place] [address] Feb Rosangela Trinidad IMMUNIZATIONS Vaccine Route Administration [...] Education Language: Question Answer Notes Languages spoken: Sinhala Episcopalian: Question Answer Notes Episcopalian No synagogue beliefs that would impact health care. Sexual [...] qid for 90 days Aug, 020 Active Torsemide 20 MG 2 tablets in morning Orally as directed Active Atorvastatin Calcium 40 MG 1 tablet Orally Once a day for 90 day (s) Nov, Active iron liquid Oral Active Aspir-81 81 MG 1 tablet Orally Once a day for 30 day(s) Active Toujeo SoloStar 300 UNIT/ML 110 units before breakfast Subcutaneous D aily Active Ergocalciferol 93207 UNIT 1 capsule Orally weekly for 90 day(s) Nov, Active Vitamin D (Cholecalciferol) 1000 UNIT 1 capsule Orally Once a day for 30 day(s) Active Vitamin D3 - as directed Active Vitamin B-12 500 MCG 1 tablet Orally Once a day for 30 day(s) Active Sensipar 30 MG 1 tablet after a meal with food Orally Once weekly Active Contour Next Test - as directed In Vitro qid for 90 Active Montelukast Sodium 10 MG 1 tablet in the evening Orally Daily for 90 Active Atenolol 25 MG 1 tablet Orally Once a day for 90 days Active Blood Pressure Kit - as directed I10.0 - for 30 day(s) Active Torsemide 20 MG 2 in the morning, 1 in the e vening Orally as directed for 90 day(s) Active Allopurinol 300 MG 1 tablet Orally Daily for 90 Active Glucometer as directed e11.29 - for 30 days Aug, Active Iron (Ferrous Gluconate) 325 MG as directed Orally Active Acyclovir 200 MG/5ML 5 ml Orally Three times a day for 90 day(s) Sep, Active PROCEDURES No Information RESULTS No Results REASON FOR VISIT blood sugar MEDICAL (GENERAL) HISTORY Type Description Date Medical [...] Medication Name Sig Start Date Stop Date Toujeo SoloStar 300 UNIT/ML 110 units before breakfast Subcutane ous Daily Glucometer as directed e11.29 - for 30 days Aug, Blood Pressure Kit - as directed I10.0 - for 30 day(s) Atenolol 25 MG 1 tablet Orally Once a day for 90 days Torsemide 20 MG 2 in the morning, 1 in the e vening Orally as directed for 90 day(s) Test Strips - as directed E11.29 qid for 90 days Aug, Acyclovir 200 MG/5ML 5 ml Orally Three times a day for 90 day(s) Sep, Contour Next Test - as directed In Vitro qid for 90 Atorvastatin Calcium 40 MG 1 tablet Orally [...] Next Appt Details Provider Name:Rosangela Trinidad, 2020- 310 01:15:00 PM, [address] [place] [address], [phone], Insurance Providers Payer Name Payer Address Payer Phone Insured Name Patient Relati onship to Insured Coverage Start Date Coverage End Date MEDICARE Part A and B [address] [facility] [phone] JAZMÍN PEREZ self [facility] [address] [address] [facility] [id number] JAZMÍN PEREZ self
--- OUTSIDE RECORDS SUMMARY | 2020-03-11 15:03 | CCD ---
Author Author [facility] Organization [facility] Address Unknown Phone Unavailable Care Team Providers Care Tooling Manager Name Role Phone Aries BROWN Unavailable Unavailable Aries BROWN Unavailable Unavailable Aries BROWN Unavailable Unavailable MIX, JOSE GROSSMAN Unavailable Unavailable MIX, JOSE GROSSMAN Unavailable Unavailable MIX, JOSE GROSSMAN Unavailable Unavailable MIX, JOSE GROSSMAN Unavailable Unavailable MIX, JOSE GROSSMAN Unavailable Unavailable MIX, JOSE GROSSMAN Unavailable Unavailable MIX, JOSE GROSSMAN Unavailable Unavailable MIX, JOSE GROSSMAN Unavailable Unavailable MIX, JOSE GROSSMAN Unavailable Unavailable MIX, JOSE GROSSMAN Unavailable Unavailable MIX, JOSE GROSSMAN Unavailable Unavailable MIX, JOSE GROSSMAN Unavailable Unavailable MIX, JOSE GROSSMAN Unavailable Unavailable MIX, JOSE GROSSMAN Unavailable Unavailable MIX, JOSE GROSSMAN Unavailable Unavailable MIX, JOSE GROSSMAN Unavailable Unavailable MIX, JOSE GROSSMAN Unavailable Unavailable MIX, JOSE GROSSMAN Unavailable Unavailable MIX, JOSE GROSSMAN Unavailable Unavailable MIX, JOSE GROSSMAN Unavailable Unavailable MIX, JOSE GROSSMAN Unavailable Unavailable MIX, JOSE GROSSMAN Unavailable Unavailable MIX, JOSE GROSSMAN Unavailable Unavailable MIX, JOSE GROSSMAN Unavailable Unavailable MIX, JOSE GROSSMAN Unavailable Unavailable MIX, JOSE GROSSMAN Unavailable Unavailable MIX, JOSE GROSSMAN Unavailable Unavailable MIX, JOSE GROSSMAN Unavailable Unavailable MIX, JOSE GROSSMAN Unavailable Unavailable MIX, JOSE GROSSMAN Unavailable Unavailable MIX, JOSE GROSSMAN Unavailable Unavailable MIX, JOSE GROSSMAN Unavailable Unavailable MIX, JOSE GROSSMAN Unavailable Unavailable MIX, JOSE GROSSMAN Unavailable Unavailable MIX, JOSE GROSSMAN Unavailable Unavailable MIX, JOSE GROSSMAN Unavailable Unavailable Armstrong, F. Day MD Unavailable Armstrong, F. Day MD Unavailable Armstrong, F. Day MD Unavailable Armstrong, F. Day MD Unavailable Armstrong, F. Day MD Unavailable Armstrong, F. Day MD Unavailable Armstrong, F. Day MD Unavailable Armstrong, F. Day MD Unavailable Armstrong, F. Day MD Unavailable Armstrong, F. Day MD Unavailable Armstrong, F. Day MD Unavailable Armstrong, F. Day MD Unavailable Armstrong, F. Day MD Unavailable Armstrong, F. Day MD Unavailable Armstrong, F. Day MD Unavailable Armstrong, F. Day MD Unavailable Armstrong, F. Day MD Unavailable Armstrong, F. Day MD Unavailable Armstrong, F. Day MD Unavailable Armstrong, F. Day MD Unavailable Armstrong, F. Day MD Unavailable Armstrong, F. Day MD Unavailable Armstrong, F. Day MD Unavailable Armstrong, F. Day MD Unavailable Armstrong, F. Day MD Unavailable Armstrong, F. Day MD Unavailable Armstrong, F. Day MD Unavailable Armstrong, F. Day MD Unavailable Armstrong, F. Day MD Unavailable Elina Oliva MD Unavailable Elina Oliva MD Unavailable Elina Oliva MD Unavailable Susy Singh MD Unavailable Unavailable Susy Singh MD Unavailable Unavailable Susy Singh MD Unavailable Unavailable Susy Singh MD Unavailable Unavailable Susy Singh MD Unavailable Unavailable Susy Singh MD Unavailable Unavailable Susy Singh MD Unavailable Unavailable Susy Singh MD Unavailable Unavailable Susy Singh MD Unavailable Unavailable Susy Singh MD Unavailable Unavailable Susy Singh MD Unavailable Unavailable HOWARD, J PATRICK AGPCNP Unavailable Unavailable HOWARD, J PATRCIK AGPCNP Unavailable Unavailable HOWARD, J PATRICK AGPCNP Unavailable Unavailable HOWARD, J PATRICK AGPCNP Unavailable Unavailable HOWARD, J PATRICK AGPCNP Unavailable Unavailable HOWARD, J PATRICK AGPCNP Unavailable Unavailable HOWARD, J PATRICK AGPCNP Unavailable Unavailable HOWARD, J PATRICK AGPCNP Unavailable Unavailable HOWARD, J PATRICK AGPCNP Unavailable Unavailable HOWARD, J PATRICK AGPCNP Unavailable Unavailable HOWARD, J PATRICK AGPCNP Unavailable Unavailable HOWARD, J PATRICK AGPCNP Unavailable Unavailable HOWARD, J PATRICK AGPCNP Unavailable Unavailable HOWARD, J PATRICK AGPCNP Unavailable Unavailable HOWARD, J PATRICK AGPCNP Unavailable Unavailable HOWARD, J PATRICK AGPCNP Unavailable Unavailable HOWARD, J PATRICK AGPCNP Unavailable Unavailable HOWARD, J PATRICK AGPCNP Unavailable Unavailable Alston I, A Jose DO Unavailable Unavailable Alston I, A Jose DO Unavailable Unavailable Alston I, A Jose DO Unavailable Unavailable Alston I, A Jose DO Unavailable Unavailable Alston I, A Jose DO Unavailable Unavailable Alston I, A Jose DO Unavailable Unavailable Alston I, A Jose DO Unavailable Unavailable Alston I, A Jose DO Unavailable Unavailable Alston I, A Jose DO Unavailable Unavailable Alston I, A Jose DO Unavailable Unavailable Alston I, A Jose DO Unavailable Unavailable Alston I, A Jose DO Unavailable Unavailable Alston I, A Jose DO Unavailable Unavailable Alston I, A Jose DO Unavailable Unavailable Alston I, A Jose DO Unavailable Unavailable Alston I, A Jose DO Unavailable Unavailable Alston I, A Jose DO Unavailable Unavailable Alston I, A Jose DO Unavailable Unavailable Alston I, A Jose DO Unavailable Unavailable Alston I, A Jose DO Unavailable Unavailable Alston I, A Jose DO Unavailable Unavailable Alston I, A Jose DO Unavailable Unavailable Alston I, A Jose DO Unavailable Unavailable Alston I, A Jose DO Unavailable Unavailable Alston I, A Jose DO Unavailable Unavailable Alston I, A Jose DO Unavailable Unavailable Alston I, A Jose DO Unavailable Unavailable Alston I, A Jose DO Unavailable Unavailable Alston I, A Jose DO Unavailable Unavailable Alston I, A Jose DO Unavailable Unavailable Alston I, A Jose DO Unavailable Unavailable Alston I, A Jose DO Unavailable Unavailable Khang Conroy MD Unavailable Unavailable Khang Conroy MD Unavailable Unavailable Khang Conroy MD Unavailable Unavailable Khang Conroy MD Unavailable Unavailable Khang Conroy MD Unavailable Unavailable Khang Conroy MD Unavailable Unavailable Khang Conroy MD Unavailable Unavailable Khang Conroy MD Unavailable Unavailable Khang Conroy MD Unavailable Unavailable Khang Conroy MD Unavailable Unavailable Khang Conroy MD Unavailable Unavailable Khang Conroy MD Unavailable Unavailable Khang Conroy MD Unavailable Unavailable Khang Conroy MD Unavailable Unavailable Khang Conroy MD Unavailable Unavailable Khang Conroy MD Unavailable Unavailable Khang Conroy MD Unavailable Unavailable Khang Conroy MD Unavailable Unavailable Khang Conroy MD Unavailable Unavailable Khang Conroy MD Unavailable Unavailable Khang Conroy MD Unavailable Unavailable Khang Conroy MD Unavailable Unavailable Khang Conroy MD Unavailable Unavailable Khang Conroy MD Unavailable Unavailable Khang Conroy MD Unavailable Unavailable Khang Conroy MD Unavailable Unavailable Khang Conroy MD Unavailable Unavailable Khang Conroy MD Unavailable Unavailable Khang Conroy MD Unavailable Unavailable Khang Conroy MD Unavailable Unavailable Khang Conroy MD Unavailable Unavailable Khang Conroy MD Unavailable Unavailable hKang Conroy MD Unavailable Unavailable Khang Conroy MD Unavailable Unavailable Khang Conroy MD Unavailable Unavailable Khang Conroy MD Unavailable Unavailable Khang Conroy MD Unavailable Unavailable Khang Conroy MD Unavailable Unavailable Khang Conroy MD Unavailable Unavailable Khang Conroy MD Unavailable Unavailable Khang Conroy MD Unavailable Unavailable Khang Conroy MD Unavailable Unavailable Marycarmen, Khang Singh MD Unavailable Unavailable Marycarmen, Khang Singh MD Unavailable Unavailable Marycarmen, Khang Singh MD Unavailable Unavailable Marycarmen, Khang Singh MD Unavailable Unavailable Marycarmen, Khang Singh MD Unavailable Unavailable Marycarmen, Khang Singh MD Unavailable Unavailable Marycarmen, Khang Singh MD Unavailable Unavailable Marycarmen, M Francisco GROSSMAN Unavailable Unavailable Marycarmen, M Francisco GROSSMAN Unavailable Unavailable Marycarmen, M Francisco GROSSMAN Unavailable Unavailable Marycarmen, M Francisco GROSSMAN Unavailable Unavailable Marycarmen, Khang Fracnisco GROSSMAN Unavailable Unavailable Re-disclosure Warning The records that you are about to access may contain information from federally-assisted alcohol or drug abuse programs. If such information is present, then the following federally mandated warning applies: This information has been disclosed to you from records protected by federal confidentiality rules (42 CFR part 2). The federal rules prohibit you from making any further disclosure of this information unless further disclosure is expressly permitted by the written consent of the person to whom it pertains or as otherwise permitted by 42 CFR part 2. A general authorization for the release of medical or other information is NOT sufficient for this purpose. The Federal rules restrict any use of the information to criminally investigate or prosecute any alcohol or drug abuse patient.The records that you are about to access may contain highly sensitive health information, the redisclosure of which is protected by Article 27-F of the [facility] Public Health law. If you continue you may have access to information: Regarding HIV / AIDS; Provided by facilities licensed or operated by the [facility] Office of Mental Health; or Provided by the [facility] Office for People With Developmental Disabilities. If such information is present, then the following [facility] mandated warning applies: This information has been disclosed to you from confidential records which are protected by state law. State law prohibits you from making any further disclosure of this information without the specific written consent of the person to whom it pertains, or as otherwise permitted by law. Any unauthorized further disclosure in violation of state law may result in a fine or senior living sentence or both. A general authorization for the release of medical or other information is NOT sufficient authorization for further disc losure. Allergies and Adverse Reactions Type Description Substance Reaction Status Data Source(s ) Drug allergy PROMETHAZINE HCL PROMETHAZINE HCL [facility] Drug allergy NALOXONE HCL NALOXONE HCL Other [facility] Family History Family Member Name Family Member Gender Family Member Status Date o f Status Description Data Source(s) Unknown Male Problem MEDENT ([facility]) Encounters Encounter Providers Location Date Indications Data Source(s ) Unknown [address] [facility] [address] 02/28/2020 12:00:00 AM EST [facility]CW1 ([facility] [place] [address] [facility] [place] [address] 02/13/2020 12:00:00 AM EST eCW1 (Psychiatric hospital) Outpatient Attender: Jose Alston I [id number] 12/14 12:00:00 AM EST - 12/15/2019 10:12:12 AM [facility] Outpatient Referrer: PATRICK HOWARD AGMONE 11/10/2019 12:00: 00 AM [facility] Outpatient Attender: Jose Alston I 11/10/2019 12:00:00 AM [facility] Outpatient Referrer: PATRICK HOWARD AGMONE 11/03/2019 12:00: 00 AM [facility] Outpatient Attender: Jose Alston I 11/03/2019 12:00:00 AM [facility] Unknown [address] [facility], [facility] [address] 08/29/2019 12:00:00 AM EDT eCW1 (Psychiatric hospital) Unknown [address] [facility] [address] 08/28/2019 12:00:00 AM EDT eCW1 (Psychiatric hospital) Outpatient Referrer: PATRICK HOWARD AGPCTAM 08/18/2019 12:00: [address] [facility] [address] [facility] [address] 06/09/2019 12:00:00 AM EDT eCW1 (Psychiatric hospital) [facility] [address] [facility] [address] 06/07/2019 12:00:00 AM EDT eCW1 (Psychiatric hospital) [facility] [address] [place] [address], [place] [address] 06/02/2019 12:00:00 AM EDT eCW1 ([facility]) Outpatient Attender: Jose Alston IAttender: PATRICK HOWARD AGPCNP [id number] 05/05/2019 12:00:00 AM EDT [address] [place] [address] 04/25/2019 12:00:00 AM EDT eCW1 ([facility]) [address] [place] [address] 04/22/2019 12:00:00 AM EDT eCW1 ([facility]) Inpatient Attender: Jose Alston IAdmitter: Jose farrell I [id number] 04/18/2019 12:00:00 AM EDT - 04/19/2019 04:46:00 PM EDT Malignant neoplasm of colon, unspecified [facility] Malignant neoplasm of colon, unspecified Patient discharged. Outpatient Attender: CASSIDY CONTI 04/17/2019 12:00:00 AM EDT [address] [address] 04/16/2019 12:00:00 AM EDT eCW1 (Psychiatric hospital) Outpatient Attender: Candie Singh MDReferrer: Jose Alston I [id number] 04/15/2019 12:13:38 PM EDT [facility] pretest [address] [address] 04/09/2019 12:00:00 AM EST eCW1 ([facility]) [address] [address] 03/25/2019 12:00:00 AM EST eCW1 ([facility] [address] [place] [address] 03/20/2019 12:00:00 AM EST eCW1 ([facility]) Outpatient Attender: Jose Fergusonrer: Danyell Oliva MD [id number] 03/17/2019 12:00:00 AM EST - 03/17/2019 02:16:45 PM [facility] Outpatient Referrer: Jose Alston I 03/17/2019 12: 00:00 AM EST 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 [facility] Neoplasm of unspecified behavior of resp iratory system Outpatient 03/14/2019 12:00:00 AM [facility] Outpatient Attender: Francisco Conroy MD 03/14/2019 12:00:00 A M [facility] Outpatient Attender: JOSE GARCIA MD [id number] 03/12/2019 02:38:[address] [address] 02/06/2019 12:00:00 AM EST eCW1 ([facility]) Medications Medication Brand Name Start Date Product Form Dose Route Admi nistrative Instructions Pharmacy Instructions Status Indications Reaction Description Data Source(s) 1 mg 03/02/2020 12:00:00 AM EST tablet 6 TAKE ONE TO TWO TABLETS BY MOUTH EVERY DAY NEEDED FOR ANXIETY MAXIMUM DAILY DOSE = 2 TABLETS TAKE ONE TO TWO TABLETS BY MOUTH EVERY DAY NEEDED FOR ANXIETY MAXIMUM DAILY DOSE = 2 TABLETS SOLD: 03/04/2020 [facility] 8 mg 02/25/2020 12:00:00 AM EST tablet 30 TAKE ONE TABLET BY MOUTH EVERY 12 HOURS NEEDED FOR NAUSEA TAKE ONE TABLET BY MOUTH EVERY 12 HOURS NEEDED FOR NAUSEA SOLD: 02/25/2020 [facility] 10 mg 02/23/2020 12:00:00 AM EST tablet 30 TAKE ONE TABLET BY MOUTH EVERY 6 HOURS NEEDED FOR NAUSEA VOMITING TAKE ONE TABLET BY MOUTH EVERY 6 HOURS A S NEEDED FOR NAUSEA VOMITING SOLD: 02/25/2020 [facility] 4 mg 02/23/2020 12:00:00 AM EST tablet 30 TAKE FOUR TABLETS BY MOUTH EVERY DAY WITH FOOD AND TAKE ONE TABLET BY MOUTH EVERY DAY FOR 2 DAYS POST CHEMO TAKE FOUR TABLETS BY MOUTH EVERY DAY WITH FOOD AND TAKE ONE TABLET BY MOUTH EVERY DAY FOR 2 DAYS POST CHEMO SOLD: 02/25/2020 [facility] 1 mg 12/15/2019 12:00:00 AM EST tablet 4 TAKE ONE TO TWO TABLETS BY MOUTH EVERY DAY TO BE TAKEN PRIOR TO PROCEDURE NEEDED FOR ANXIETY MAXIMUM DAILY DOSE = 2 TAKE ONE TO TWO TABLETS BY MOUTH EVERY D AY TO BE TAKEN PRIOR TO PROCEDURE NEEDED FOR ANXIETY MAXIMUM DAILY DOSE = 2 SOLD: 12/22/2019 [facility] 17.5-3.13-1.6 gram 11/18/2019 12:00:00 AM EDT [facility] 354 USE BY PHYSICAIN USE BY PHYSICAIN SOLD: 11/20/2019 [facility] 2.5-2.5 % 10/31/2019 12:00:00 AM EDT cream 30 APPLY A DIME SIZED AMOUNT TO THE PORT AREA. DO NOT RUB IN , COVER WITH SARAN WRAP TO PROTECT CLOTHING APPLY A DIME SIZED AMOUNT TO THE PORT AREA. DO NOT RUB IN , COVER WITH SARAN WRAP TO PROTECT CLOTHING SOLD: 11/05/2019 [facility] 2.5-0.025 mg 10/10/2019 12:00:00 AM EDT tablet 30 TAKE ONE TABLET BY MOUTH TWICE A DAY NEEDED FOR DIARRHEA MAXIMUM DAILY DOSE = 2 TABLETS TAKE ONE TABLET BY MOUTH TWICE A DAY NEEDED FOR DIARRHEA MAXIMUM DAILY DOSE = 2 TABLETS SOLD: 10/13/2019 [facility] 20 mg 09/20/2019 12:00:00 AM EDT tablet 90 TAKE TWO TABLETS BY MOUTH EVERY MORNING AND TAKE ONE TABLET BY MOUTH EVERY EVENING DIRECTED TAKE TWO TABLETS BY MOUTH EVERY MORNING AND TAKE ONE TABLET BY MOUTH EVERY EVENING DIRECTED SOLD: 10/07/2019 [facility] 300 mg 09/20/2019 12:00:00 AM EDT tablet 30 TAKE ONE TABLET BY MOUTH EVERY DAY TAKE ONE TABLET BY MOUTH EVERY DAY SOLD: 10/07/2019 [facility] Glucometer UNK 08/13/2019 12:00:00 AM EDT active Glucometer eCW1 ([facility]) Test Strips - UNK 08/13/2019 12:00:00 AM EDT acti ve Test Strips - eCW1 ([facility]) Glucometer UNK 08/13/2019 12:00:00 AM EDT active Glucometer eCW1 ([facility]) Lancets Misc. - UNK 08/13/2019 12:00:00 AM EDT active Lancets Misc. - eCW1 ([facility]) Test Strips - UNK 08/13/2019 12:00:00 AM EDT acti ve Test Strips - eCW1 ([facility]) Lancets Misc. - UNK 08/13/2019 12:00:00 AM EDT active Lancets Misc. - eCW1 ([facility]) Test Strips - UNK 08/13/2019 12:00:00 AM EDT acti ve Test Strips - eCW1 ([facility]) Glucometer UNK 08/13/2019 12:00:00 AM EDT active Glucometer eCW1 ([facility]) Lancets Misc. - UNK 08/13/2019 12:00:00 AM EDT active Lancets Misc. - eCW1 ([facility]) Glucometer UNK 08/13/2019 12:00:00 AM EDT active Glucometer eCW1 ([facility]) Lancets Misc. - UNK 08/13/2019 12:00:00 AM EDT active Lancets Misc. - eCW1 ([facility]) Test Strips - UNK 08/13/2019 12:00:00 AM EDT acti ve Test Strips - eCW1 ([facility]) cinacalcet 30 MG Oral Tablet cinacalcet (SENSIPAR) tab let 15 mg cinacalcet (SENSIPAR) tablet 15 mg 04/21/2019 09:00:00 AM EDT 15 mg Oral active 15 mg, Oral, Twice Weekly, First dose (after last modification) on 04/21/19 at 0900, For 3 doses [facility] Medication administered onsite 0.4 ML Enoxaparin sodium 100 MG/ML Prefi lled Syringe enoxaparin sodium (LOVENOX) injection 40 mg enoxaparin sodium (LOVENOX) injection 40 mg 04/19/2019 09:00:00 AM EDT 40 mg Subcutaneous active 40 mg, Subcutaneous, Daily Standard, First dose on 04/19/19 at 0900, For 30 days
Non Patients: body weight < 150 kg, CrCl > 30 mL/min. Guidelines for Lovenox:MUST wait 24 hours before starting Enoxaparin if patient has epidural catheter.D/C Enoxaparin 10- 12 hours prior to removing epidural catheter.
[facility] Medication administered onsite Vitamin B 12 0.1 MG Oral Tablet vitamin B-12 (CYANOCOB ALAMIN) tablet 500 mcg vitamin B-12 (CYANOCOBALAMIN) tablet 500 mcg 04/19/2019 09:00:00 AM EDT 500 ug Oral active 500 mcg, O ral, Every other day, First dose on 04/19/19 at 0900, For 30 days [facility] Medication administered onsite Magnesium Oxide 400 MG Oral Tablet Magnesium Oxide (MA G-OX) tablet 800 mg Magnesium Oxide (MAG-OX) tablet 800 mg 04/19/2019 09:00:00 AM EDT 8 00 mg Oral active 800 mg, Oral, E very other day, First dose on 04/19/19 at 0900, For 30 days [facility] Medication administered onsite Atenolol 25 MG Oral Tablet atenolol (TENORMIN) tablet 25 mg atenolol (TENORMIN) tablet 25 mg 04/19/2019 09:00:00 AM EDT 25 mg Oral activ e 25 mg, Oral, Every morning, First dose on 04/19/19 at 0900, For 30 days
Check vital signs before administering
[facility] Medication administered onsite Allopurinol 100 MG Oral Tablet allopurinol (ZYLOPRIM) tablet 300 mg allopurinol (ZYLOPRIM) tablet 300 mg 04/19/2019 09:00:00 AM EDT 300 mg Oral active 300 mg, Oral, Every morning, First dose on 04/19/19 at 0900, For 30 days [facility] Medication administered onsite Insulin Glargine 100 UNT/ML Injectable S olution insulin glargine (LANTUS) injection 80 Units insulin glargine (LANTUS) injection 80 Units 0 09:00:00 AM EDT 80 U Subcutaneous active 80 Units, Subcutaneous, Every morning, First dose on 04/19/19 at 0900, For 30 days
For blood glucose less than 70 mg/dL: follow hypoglycemia protocol ( ) and notify provider.For blood glucose values between 70 mg/dL and 100 mg/dL at bedtime: provide snack (15 grams of carbohydrates) with some protein. Administer FULL DOSE of insulin glargine (LANTUS) after snack.Record snack in I&O's. For blood glucose more than 400 mg/dL: notify provider
[facility] Medication administered onsite Insulin Lispro 100 UNT/ML Injectable Adelaide ution [Humalog] insulin lispro (HumaLOG) injection MEDIUM DOSE EATING INSULIN patients 1-16 Units insulin lispro (HumaLOG) injection MEDIUM DOSE EATING INSULIN patients 1-16 Units 04/19/2019 08:00:00 AM EDT Subcutaneous active 1-16 Units, Subcutaneous, Three Times Daily-With Meals, First dose on Sun04/19/19 at 0800, For 30 days
Nursing MUST open the 'SQ Insulin Dosing Charts' Sidebar Report, or, the Patient Summary or Summary Report within the ED.
[facility] Medication administered onsite 5 mg 04/19/2019 12:00:00 AM EDT tablet 18 TAKE ONE TABLET BY MOUTH EVERY 4 HOURS NEEDED FOR UP TO 3 DAYS MAXIMUM DAILY DOSE = 6 TABLETS TAKE ONE TABLET BY MOUTH EVERY 4 HOURS NEEDED FOR UP TO 3 DAYS MAXIMUM DAILY DOSE = 6 TABLETS SOLD: 04/19/2019 [facility] Oxycodone Hydrochloride 5 MG Oral Tablet oxyCODONE HCl 5 MG Oral Tablet (ROXICODONE) oxyCODONE HCl 5 MG Oral Tablet (ROXICODONE) 04/19/2019 12:00:00 AM EDT 5 mg Oral active Take 1 t ablet by mouth every 4 (four) hours as needed for up to 3 days, Max Daily Dose: 30 mg [facility] montelukast 10 MG Oral Tablet montelukast (SINGULAIR) tablet 10 mg montelukast (SINGULAIR) tablet 10 mg 04/18/2019 10:00:00 PM EDT 10 mg Oral active 10 mg, Oral, Nightly, First dose on Sun04/18/19 at 2200, For 30 days [facility] Medication administered onsite latanoprost 0.05 MG/ML Ophthalmic Soluti on latanoprost (XALATAN) 0.005 % ophthalmic solution 1 drop latanoprost (XALATAN) 0.005 % ophthalmic solution 1 drop 04/18/2019 10:00:00 PM EDT 1 [drp] Left Eye active 1 drop, Left Eye, Nightly, First dose on Sun04/18/19 at 2200, For 30 days [facility] Medication administered onsite Aspirin 81 MG Chewable Tablet aspirin chewable tablet 81 mg aspirin chewable tablet 81 mg 04/18/2019 09:00:00 PM EDT 81 mg Oral activ e 81 mg, Oral, Every evening, First dose on Sun04/18/19 at 2100, For 30 doses [facility] Medication administered onsite atorvastatin 40 MG Oral Tablet atorvastatin (LIPITOR) tablet 40 mg atorvastatin (LIPITOR) tablet 40 mg 04/18/2019 09:00:00 PM EDT 40 mg Oral active 40 mg, Oral, Every evening, First dose on Sun04/18/19 at 2100, For 30 days [facility] Medication administered onsite torsemide 20 MG Oral Tablet torsemide (DEMADEX) tablet 20 mg torsemide (DEMADEX) tablet 20 mg 04/18/2019 06:00:00 PM EDT 20 mg Oral acti ve 20 mg, Oral, 2 Times Daily, First dose on Sun04/18/19 at 1800, For 30 days [facility] Medication administered onsite dextrose 5 % and 0.45 % NaCl with KCl 20 mEq infusion [id number] 635-00 04/18/2019 04:00:00 PM EDT Intravenous aborted at 125 mL/hr, Intravenous, Continuous, Starting Sun04/18/19 at 1600, For 30 days [facility] Medication administered onsite Acetaminophen 325 MG Oral Tablet acetaminophen (TYLENO L) tablet 650 mg acetaminophen (TYLENOL) tablet 650 mg 04/18/2019 04:00:00 PM EDT 65 0 mg Oral active 650 mg, Oral, E very 6 hours, First dose on Sun04/18/19 at 1600, For 30 days
Maximum daily dose of acetaminophen is 3,000 mg from all sources in 24 hours.
[facility] Medication administered onsite 1 ML Ketorolac Tromethamine 15 MG/ML Car tridge ketorolac (TORADOL) 15 MG/ML injection 15 mg ketorolac (TORADOL) 15 MG/ML injection 15 mg 0 04:00:00 PM EDT 15 mg Intravenous active 15 m g, Intravenous, Every 6 hours, First dose on Sun04/18/19 at 1600, For 3 days [facility] Medication administered onsite oxyCODONE (ROXICODONE) immediate release tablet 2.5 mg 04/18/2019 03:46:35 PM EDT 2.5 mg Oral active [Order 1 Start] Name: oxyCODONE (ROXICODONE) immediate release tablet 2.5 mg Signed Summary: 2.5 mg, Oral, Every 4 hours PRN, Moderate Pain (Pain Scale Score 4-6), Starting Sun04/18/19 at 1546, For 3 days
Oxycodone immediate release is limited to 10 mg per dose. Higher doses ([facility] only) require Pain Service consultation and approval.
[Order 1 End] [Order 2 Start] Name: oxyCODONE (ROXICODONE) immediate release tablet 5 mg Signed Summary: 5 mg, Oral, Every 4 hours PRN, Severe Pain (Pain Scale Score 7-10), Starting Sun04/18/19 at 1546, For 3 days
Oxycodone immediate release is limited to 10 mg per dose. Higher doses ([facility] only) require Pain Service consultation and approval.
[Order 2 End] [facility] Medication administered onsite ondansetron (ZOFRAN) injection 4 mg [id number] 04/18/2019 03:46:3 3 PM EDT 4 mg Intravenous active 4 mg, In travenous, Every 8 hours PRN, Nausea, Vomiting, Starting Sun04/18/19 at 1546, For 5 days [facility] Medication administered onsite fentaNYL (SUBLIMAZE) (PF) injection 25 mcg [id number] 04/18/2019 03:46:33 PM EDT 25 ug Intravenous active 25 m cg, Intravenous, Every 3 hours PRN, Other, breakthrough, Starting Sun04/18/19 at 1546, For 3 days [facility] Medication administered onsite Glucagon 1 MG Injection glucagon (human recombinant) ( GLUCAGEN) injection 1 mg glucagon (human recombinant) (GLUCAGEN) injection 1 mg 04/18/2019 03:37:38 PM EDT 1 mg Intramuscular active 1 mg, Intramuscular, PRN, for glucose <55 without IV access, Starting Sun04/18/19 at 1537, For 30 days [facility] Medication administered onsite Glucose 0.4 MG/MG Oral Gel glucose (GLUTOSE) 40 % oral gel 15 g glucose (GLUTOSE) 40 % oral gel 15 g 04/18/2019 03:37:38 PM EDT 15 g Oral active 15 g, Oral, PRN, Low blood s ugar, for gluose 55-69 mg/dl and able to take PO, Starting Sun04/18/19 at 1537, For 30 days [facility] Medication administered onsite dextrose 50 % IV solution 25 mL [id number] 04/18/2019 03:37:38 PM E DT 25 mL Intravenous active 25 mL, Intrav enous, PRN, Other, blood glucose <55, Starting Sun04/18/19 at 1537, For 30 days
Not for midline administration.
[facility] Medication administered onsite fentaNYL (SUBLIMAZE) (PF) injection 25 mcg [id number] 04/18/2019 03:06:30 PM EDT 25 ug Intravenous active 25 m cg, Intravenous, Every 5 min PRN, Severe Pain (Pain Scale Score 7-10), Starting Sun04/18/19 at 1506, For 10 doses [facility] Medication administered onsite 8 mg 12/12/2018 12:00:00 AM EST tablet 30 TAKE ONE TABLET BY MOUTH EVERY 6 HOURS NEEDED FOR NAUSEA TAKE ONE TABLET BY MOUTH EVERY 6 HOURS A S NEEDED FOR NAUSEA SOLD: 07/13/2019 [facility] 2.5-2.5 % 12/03/2018 12:00:00 AM EDT cream 30 APPLY A DIME SIZE TO PORT AREA. DO NOT RUB IN, COVER WITH SARAN WRAP TO PROTECT CLOTHING APPLY A DIME SIZE TO PORT AREA. DO NOT RUB IN, COVER WITH SARAN WRAP TO PROTECT CLOTHING SOLD: 01/21/2019 [facility] Insurance Providers Payer name Policy type / Coverage type Policy ID Covered alliance party ID Covered alliance party's relationship to maria Policy Maria Plan Information MEDICARE [id number] SP [id number] [id number] [facility] [id number] SP [id number] [facility] U [id number] Self [id number] MEDICARE A [id number] Self [id number] M10 [facility] [id number] SP [id number] MEDICARE [id number] SP [id number] M10 [facility] [id number] SP [id number] ANSI-Commercial [id number] ANSI-Commercial [id number] ANSI-Medicare Part B [id number] ANSI-Commercial [id number] ANSI-Commercial [id number]-4lxs-[id number] ANSI-Medicare Part B [id number] MEDICARE [id number] SP [id number] A r [facility] Part B [id number] Self [id number] Medicare [place] Primary [id number] Self [id number] ANSI-Commercial [id number] ANSI-Commercial [id number] ANSI-Medicare Part B [id number] ANSI-Commercial [id number]-[id number] ANSI-Medicare Part B [id number] ANSI-Commercial [id number]-[id number]-v3y7-878h-[id number] ANSI-Commercial [id number] ANSI-Medicare Part B [id number] ANSI-Commercial [id number]-[id number] ANSI-Commercial [id number]-2g2c-[id number] [id number]-7u0r-[id number] ANSI-Commercial [id number]-0428-i15e-[id number] [id number]-9902-o89l-[id number] ANSI-Medicare Part B [id number] ANSI-Commercial [id number]-0547-[id number] ANSI-Medicare Part B [id number] ANSI-Commercial [id number]-[id number] ANSI-Commercial gzjq84x5-3o17-5w4z-v2h0-7042m25b633w mits70e2-4m48-8z4t-[id number] ANSI-Medicare Part B [id number] ANSI-Commercial [id number] ANSI-Medicare Part B [id number] ANSI-Commercial [id number]-[id number] ANSI-Commercial ij5udx5g-98c2-0474-yb8h-[id number] jv4zsd4k-07s5-8084-ww7f-wi5ev24ht8av Umr Commercial [id number] Self [id number] [facility] [id number] Self [id number] Medicare [place] Medicare Primary [id number] Self [id number] ANSI-Medicare Part B [id number] ANSI-Commercial [id number]-9tny-[id number] ANSI-Commercial [id number]-w60i-[id number]-z62d-[id number] ANSI-Commercial [id number]-[id number]-[id number] ANSI-Commercial [id number] [id number]-3973-[id number] ANSI-Medicare Part B [id number] ANSI-Commercial [id number]-[id number] ANSI-Medicare Part B [id number]-[id number] ANSI-Commercial [id number]-86t3-[id number]-ss14-3crc-44i9-[id number] ANSI-Commercial [id number]-[id number]-b94x-[id number] ANSI-Commercial 30qzg48i-6746-859s-j5kt-[id number] [id number]-[id number]-z1lz-5201mgcg037k ANSI-Medicare Part B [id number] MEDICARE [id number] A ANSI-Commercial [id number]-[id number] ANSI-Commercial [id number]-8dvq-36w8-35h6-[id number] [id number]-4ipd-[id number] ANSI-Medicare Part B [id number] ANSI-Medicare Part B [id number] ANSI-Commercial [id number] ANSI-Commercial [id number] POM[employer] [id number] SP [id number] [facility] [id number] SP [id number] [employer] Medigap Part B [id number] Self [id number] Medicare [facility] [employer] Medicare Primary [id number] Self [id number] i/[employer] Medigap Part B [id number] Self [id number] [employer] P[employer] Medigap Part B [id number] Self [id number] Medicare [place] [employer] Medicare Primary [id number] Self [id number] [employer] P[employer] Medigap Part B [id number] Self [id number] Medicare [place] [employer] Medicare Primary [id number] Self [id number] [employer] P[employer] Medigap Part B [id number] Self [id number] Medicare [place] [employer] Medicare Primary [id number] Self [id number] [employer] Medigap Part B [id number] Self [id number] Medicare [facility] [place]/[facility] Medicare Primary [id number] Self [id number] Ghi/[employer] Medigap Part B Ppo Self Ppo [place] Ppo Medigap Part B 335 Self 335 Medicare [employer] [employer] Medicare Primary Self [place] Medigap Part B Self Medicare [facility] [place]/N[place] Medicare Primary Self [employer] [id number] SP [id number] [place] Medigap Part B Self Medicare [facility] [place] Medicare Primary Self Ghi/[employer] Commercial Self Ghi/[employer] [facility]TH (pr) Commercial Self [employer] PPO S [id number] S [id number] MEDICARE P [id number] S [id number] A [id number] Problems, Conditions, and Diagnoses Code Display Name Description Problem Type Effective Dates Data Source(s) 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 Secondary malignant neoplasm of unspecified lung Diagnosis 04/18/2019 09:18:22 AM EDT [facility] C18.9 Malignant neoplasm of colon, unspecified Malignant neoplasm of colon, unspecified Diagnosis 04/18/2019 09:18:22 AM EDT [facility] Colon cancer metastasized to lung Colon cancer metasta sized to lung Diagnosis 04/18/2019 09:18:22 AM [facility] Metastatic colorectal cancer Metastatic colorectal can cer Diagnosis 04/18/2019 09:18:22 AM EDT [facility] pretest pretest Diagnosis 04/15/2019 12:13:38 PM ED [facility] 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 Diagnosis 03/17/2019 11:41: 00 AM [facility] P/P, DLCO P/P, DLCO Diagnosis 03/17/2019 11:41:00 AM [facility] Surgeries/Procedures Procedure Description Date Indications Data Source(s) XR CHEST FRONTAL ONLY 14659 XR CHEST FRONTAL ONLY 58248 Routine 04/19/2019 1:18 PM EDT 04/19/2019 05:18:47 PM EDT [facility] POCT GLUCOSE, DOCKED POCT GLUCOSE, DOCKED Routine 04/19/2019 12:01 PM EDT [facility]19[facility]2019 [facility]SE, DOCKED POCT GLUCOSE, DOCKED Routine 04/19/2019 8:35 AM EDT 04/19/2019 12:35:00 PM [facility] XR CHEST FRONTAL ONLY 50277 XR CHEST FRONTAL ONLY 33594 Routine 04/19/2019 5:54 AM EDT 04/19/2019 09:54:00 AM EDT [facility] HEPATITIS C ANTIBODY HEPATITIS C ANTIBODY Routine 04/19/2019 3:24 AM EDT 04/19/2019 07:24:00 AM [facility] BLOOD COUNT COMPLETE AUTO&AUTO DIFRNTL WBC COUNT CBC AND DIFFER ENTIAL Routine 04/19/2019 3:24 AM EDT 04/19/2019 07:24:00 AM [facility] PHOSPHORUS INORGANIC PHOSPHORUS LEVEL Routine 04/19/2019 3:24 AM E DT 04/19[facility]2019 [facility] MAGNESIUM MAGNESIUM LEVEL Routine 04/19/2019 3:24 AM EDT 04/19/2019 07:24:00 AM [facility] BASIC METABOLIC PANEL CALCIUM TOTAL BASIC METABOLIC PANEL Routi ne 04/19/2019 3:24 AM EDT 04/19/2019 07:24:00 AM EDT [facility] GLUCOSE QUANTITATIVE BLOOD XCPT REAGENT STRIP POCT GLUCOSE, DOC CHAZD Routine 04/18/2019 9:06 PM EDT 04/19/2019 01:06:00 AM [facility] GLUCOSE QUANTITATIVE BLOOD XCPT REAGENT STRIP POCT GLUCOSE, DOC KED Routine 04/18/2019 4:44 PM EDT 04/18/2019 08:44:00 PM [facility] XR CHEST FRONTAL ONLY 73589 XR CHEST FRONTAL ONLY 31847 STAT 04/18/2019 3:47 PM EDT 04/18/2019 07:47:00 PM EDT [facility] KRYS VIDEO KRYS VIDEO Routine 04/18/2019 10:00 AM EDT 04/18/2019 02:00:33 PM [facility] GLUCOSE QUANTITATIVE BLOOD XCPT REAGENT STRIP POCT GLUCOSE, DOC KED Routine 04/18/2019 9:58 AM EDT 04/18/2019 01:58:00 PM [facility] CONFIRMATORY TYPE CONFIRMATORY TYPE Routine 04/18/2019 9:55 AM EDT 04/18/2019 01:55:00 PM [facility] CROSSMATCH, PAT CROSSMATCH, PAT Routine 04/18/2019 1:00 AM EDT 04/18/2019 05:00:00 AM [facility] BLOOD COUNT COMPLETE AUTOMATED CBC Routine 0 1:49 PM EDT Preop testing 04/15/2019 05:49:00 PM EDT Preop testing [facility] Preop testing BLOOD TYPING ABO TYPE AND SCREEN Routine 04/15/2019 1:49 PM EDT Preop testing 04/15/2019 05:49:00 PM EDT Preop testing [facility] Preop testing BASIC METABOLIC PANEL CALCIUM TOTAL BASIC METABOLIC PANEL Routi ne 04/15/2019 1:49 PM EDT Preop testing 04/15/2019 05:49:00 PM EDT Preop testing [facility] Preop testing EKG 12-LEAD - CMAXX REPORT EKG 12-LEAD - CMAXX REPORT 04/15/2019 12:57 PM EDT 04/15/2019 04:57:08 PM EDT [facility] EKG 12-LEAD EKG 12-LEAD Routine 04/15/2019 12:57 PM EDT 04/15/2019 04:57:08 PM EDT [facility] EKG 12-LEAD EKG 12-LEAD Routine 04/15/2019 12:57 PM EDT Preop testing 04/15/2019 04:57:08 PM EDT Preop testing [facility] Preop testing CARDIAC REPORT CARDIAC REPORT 04/14/2019 4:12 PM EDT 04/14/2019 08:12:10 PM EDT [facility] SPIROMETRY WITH BRONCHODILATOR SPIROMETRY WITH BRONCHODILATOR R outine 03/17/2019 12:14 AM EST Neoplasm of lung 03/17/2019 05:14:03 AM EST Neoplasm of lung [facility] Neoplasm of lung Results ID Date Data Source [id number] 12/16/2019 12:25:39 PM EST [facility] Name Value Range Interpretation Code Description Data Nel rce(s) Supporting Document(s) Progress Note [facility] JEKISv5iMzATQeJi34/IQTpbJXScz9QaSEpfNMa5RIarOHXuZ7IlTLI0sK5yYQK2FAeIPsShDaGtDRFc lbm [file] Leah/9AjF5eV8SY8DGg+J7uD8ma9XLezdc9Ls7Nm1XQlNRDfWtb/QjfD+WHFCP/ZKuWP6Iv4EmsKrjLnX Lz4DbDI0BTyq3r0bjE+CWvdjA1wVv5rZqY6+B6T74H 6g8U8o2LnaargZw7ER4Hd0It8IKQFa+rsY4Bm6vKNeJGoxuEjgpjVK5kx5tqPiGyni5Cow6Nydz33ZS/ da0pi60qGNoTVtU7iPHvLp5cMNxB5aAwFA/C2PKBBNtC52LUiP8EQkizd/dO1qBrTfkjAFpQxOFVmeMK Iw9VZ+b6+tUD0d9KM5eyW0otGob8+Pyzb9iRIj3Caa w2B24Krkbbyz4YK5rREnwReb32F247OF0SB/WlIszl9bn2DqM6vNXWGXZewWX2LUtxZh0bLpaO4sO06V lq+dWEn3s4h5QskqBJUBYSGl6bv95BBz4Y+R/HdUAVbbxk9Dvt7hdPaM/MU6fSuR/Mm++Aix+JF84PNj 2tp6gWpZ/E8HHr4zbqoMYw7YPf795O5ylTcqqw5z7Y N02ZMw6FBkyNwSUx2DwJ8zVPYjk1iOK3xfvuVqUhuw95VCpSfQ2ZLYVOtSlGA9JFIsKzh4pgQEydSITB mzLRGABCsdTrwZcuyCFDJbi7ewmCZZUO4FoWo4uUgeVCQWenILW1vIWGcfZisFD4vIhbPOfw8rqZQhEm electrical mechanic+AMXREEoKCy7XhxILv0CUlLbUPXpe8hkHqSkxlS [file] MDAwMDAyMTEyOSAwMDAwMCBuDQowMDAwMDIxMjgwID KuMIUeGZ3VDlItNIpwEYXMQen2WUgjD6e3HIBiVp8ZW8Emv4UbHeKeWXRWVZiiME9glzKdZMEaVo9IN7 sLUcmuZcu2V0GkXzRrBQA5DLszFZInO4R5RCY0FvAxBVPcKX8oTRRkGrPlTyK1WEF6AAvjP7M5VVRlWg P8JBZhJvUeLmU8IgJzSL8SVk4ODwQ2TXU2hQUgDc6CAaK9DlUIRhKdZY6EBOv= ID Date Data Source [id number] 11/20/2019 12:00:00 PM EDT [facility] Name Value Range Interpretation Code Description Data Nel rce(s) Supporting Document(s) SARS coronavirus 2 RNA [facility] This lab was ordered by [facility] and reported by [facility]. ID Date Data Source [id number] 05/05/2019 12:45:02 PM EDT [facility] Name Value Range Interpretation Code Description Data Nel rce(s) Supporting Document(s) Progress Note [facility] BBITYb1qLiOZXwYr82/KQUdxOKXjf4RvVCtqDRw2YUcnTMSwU0VnTKE1pO9aYBF3JDyCHuMiHcKzRiXp lbm BkRxeMBoEqDXQyJubWQtHhXBmpThgdqILeQN2KiQJ2QHXpI51zWLJbOBWdN8MvURB9YIU+Vf9DIOLqaY TeCZ5NWdqF7L4icmk3Av4baR+RIRM1K0XfCpskDKr6ysMHMOJJUP0xHkdSkrqemptrg7Mx5z/gyc2tnF R+cQgcqp7LRvhUINevEJ0Vc2GDWwC//uBiBIDjP31/ W/mcQbG1n5W//JuiAvK0Qjdmw6nIkhRa8XgIAbj/IxfjTM42nkfRyvCqtbzksO1XWQyeU7UV5Bu6b5Ok zibj5+eta9vc6DnN9fWqavrg2iH4DOZ35WvjZR0Jqe2G5nglzF1Snuv7d/vVHWqO8anqikYk6hYgv4V1 1CUaTrOKmZVnaff8d5aDMahrhtOShCDHVm6SqaVtNh 9NuT44AKpfAsFcRw9WWtf5An6Mr0BYGR3Y+CJPF/rxC3ParQqFOg9V3/74wehsxy9T6WNMkerzWNhnTb iA/VvN5VYgF7+pNkbBWLd/oidWlGlM9gkywx0+vDjjbMHfh/HQLbNM6WQgx8Qo/iZdzh1ZsD/Z4ZWNr2 li1NJBtv3X1naDbHsoxJK9xtk65U0BocTq1ftxbVWl 1yuksyG9SyRUC0zx3R3Xlw8gR6UaxU7xgCfhc56N7909UsP2t9R4AAl8EBvdiu/VQpcMgeBMGiz0wJHy Rqpon3nJxgLdFdCbwNNl8/IObBqscdUSVzIVLklhfwxE54OvZ2NlTF7v+03hpg3cST1aqoq7whxOYDMP Wm8UYkPwMC+FUdFSpO+LvYDTPE0O4dmUPDNp83dTpF Rwsjinif9OR6KRYwfLnc10QJ5gcr2DDBKyif3lW/alCO4q3Pd1/Cassia+HjSk3qahkQon6TT3srP4q4msZ [file] ICAgICAgICAgICAgICAgICAgICAgICAgICAgICAgICAgICAgICAgICAgICAgICAgICAgICAgICAgICAg ICAgICAgICAgICAgICAgDQogICAgICAgICAgICAgICAgICAgICAgICAgICAgICAgICAgICAgICAgICAg ICAgICAgICAgICAgICAgICAgICAgICAgICAgICAgIC AgICAgICAgICAgICAgICAgICAgICAgICAgDQogICAgICAgICAgICAgICAgICAgICAgICAgICAgICAgIC AgICAgICAgICAgICAgICAgICAgICAgICAgICAgICAgICAgICAgICAgICAgICAgICAgICAgICAgICAgIC AgICAgICAgDQogICAgICAgICAgICAgICAgICAgICAg ICAgICAgICAgICAgICAgICAgICAgICAgICAgICAgICAgICAgICAgICAgICAgICAgICAgICAgICAgICAg ICAgICAgICAgICAgICAgICAgDQogICAgICAgICAgICAgICAgICAgICAgICAgICAgICAgICAgICAgICAg ICAgICAgICAgICAgICAgICAgICAgICAgICAgICAgIC AgICAgICAgICAgICAgICAgICAgICAgICAgICAgDQogICAgICAgICAgICAgICAgICAgICAgICAgICAgIC AgICAgICAgICAgICAgICAgICAgICAgICAgICAgICAgICAgICAgICAgICAgICAgICAgICAgICAgICAgIC AgICAgICAgICAgDQogICAgICAgICAgICAgICAgICAg ICAgICAgICAgICAgICAgICAgICAgICAgICAgICAgICAgICAgICAgICAgICAgICAgICAgICAgICAgICAg ICAgICAgICAgICAgICAgICAgICAgDQogICAgICAgICAgICAgICAgICAgICAgICAgICAgICAgICAgICAg ICAgICAgICAgICAgICAgICAgICAgICAgICAgICAgIC AgICAgICAgICAgICAgICAgICAgICAgICAgICAgICAgDQogICAgICAgICAgICAgICAgICAgICAgICAgIC AgICAgICAgICAgICAgICAgICAgICAgICAgICAgICAgICAgICAgICAgICAgICAgICAgICAgICAgICAgIC AgICAgICAgICAgICAgDQogICAgICAgICAgICAgICAg ICAgICAgICAgICAgICAgICAgICAgICAgICAgICAgICAgICAgICAgICAgICAgICAgICAgICAgICAgICAg IFXwLOElEPDrETXjUJZqBTIcXYTbWOQuLSs1A2maKXIyFPUoUS1mEIc8Kv6+BVxDMkGrPUB5nwFesV2W QJ3wx8WeOBmqKUJxw5NqMSp1MT2VUKCxMLijXO6YDW idut9VSEXmRPWsuGVHw1taGsBdTRH6AAMhWpwhBG6PVWDzI8xyguYsGPVtQDKADFluWOTEPLgqLXPBCL 5QIpPrC2SluV51GEYGHz3+ICwsqrVxUzbYQfH4BLIwt3LxOEe0CX4HZMWqVdsxm3NpZetyWGLWTXdtNX 0VWGU5ZCD8QBWwLg8SQIJlL433pdHbYG6IJj3ORtFe BU2kul0NPbcwRDFrWmyWEha0APsgCJ3LkKSkMYxMhy0nwuWrxyFBo5RgkcFulANNhT3mQTKcWuIFm6wk bcqvVcTlUZMoLh3eMF8qISLsDBSaGkYtNSJSEZ4ZGLJeUFVagNIgXHHbQKCBNC5DYRhiSJE5KUItlsWw xZSlDHxrMM6PAWHugxNtJeOrKVRDRJe+Fz6UMY9jo5 YmIMonECIuXU6azb8XVTsQMyJgA1K7bAZnO4Q5LKkiGm5TBLWbCJLrWcDiBFGDUXgrOX9MCB2xkkA3BV 2BxNAjMFHvSHAwaDZoTGo6A49sxTRwXEjwTI6XXDW+Patsy+Ks4GBXYxGJAsHSYtBdNtHHXADiNtI0OvZ4 VHz1TfI2WaOW31xRtpejVdKUlyHH2ECR5zBNWzZNQW UY9EoVJckJ3zscGhZuEfMGXRVbDvW40knOPoTARoHDU6SCNyYg3TUUStM9OgzsLtdIjfnoWoQJFxIAYE BY1YBNfjgkZtlRNhxTpoFR69eHgtMO3LFe5WZiSiZR2ing3JeZWzFo6BWXAaQB5QBTObIGTcCYHkRGS9 ZWDkTfApVJksSSEkAIDlOFB5IUHxUHKkZR3PGrTjTR IjToT5APKkGLNqZLAmjm8ZAQIuTPUaWxU0NQAqFZWnUSXmKEioDKVzIOKlCLH3WTTgHOIlRO9EAtNqSF UkOJYjJoUpBXUwCEBtza4BPWPyVYXkWFArOYNvRLEzYRMeONiqGKMaYPT1CCF2LEBaTSUrPC3WDlUiDQ TpYOk8RmXsIOJbEWPkuv4FZTWaMQZzLTW4WVDqXNTu CVXsHYueCWXiOIE5DQE5GXZlEKUkEO1INcRgQNPmLYz8QeHeZJKaYEZqov1ZEVUgRNQkWGSwIoMlEVUl XRBcPHdiNEQcXCU4ULB5CWKbGINsXF1EKqIeLGFjSNP9MvVeJROnBPUpab1QXMVmXIViLVl5RvIbDOJb TNKxIQaoCBTkPPDgUPC8IQHbKSNnKK8LFqQyWVSfAu L5XFyxYJVtDPNmtj4MFAMgVNTiOcimXESqTMKmYNCdTIjfYYTjJEHiBMN6NOHzRRZlED7UVjJsMTJnRt BrLwPdIIZbJUCjun7UOJLyLPOlIdWcQGItAKPmZQHnOVzkGUDeJRG6MuPlMINjSLMyJD5NEiMmRQZnNc U2VRAjWJWzJTKxno1QFIHkFFSsETaxFsTvBAZfGFUf NNzeHCOtPQL7VQL1HOKuTZQuUO5RXuIgRKHyJeB4GUcuXXPzXWQnoe1ITDFvVOHxNiI7MIXhXIXuAAZr BAnoEFOtDGO1HSW2ZYYsIPQhLN8ROjWyUAdgUSSAOhq9LEsaP1p0IIShNJ2JC5Hpk9NdAatnIVZQXEor NW5tmdWvMLOpVy1KJ8cBVpspZUKaUnZuSYPmBtlpJ8 S8JYWmGuE7TJHmWWO1KDzzFG7eEPR0YPGyDYEwJCMeEIEcOwU1JtL5SIEnTzPpEkwwIIUrMkDdBR0UGv 9IHoJ0ASU7tXUnLi3EVyyxRtWXScHyPO2KKSf= ID Date Data Source [id number] 04/24/2019 07:36:10 AM EDT [facility] Name Value Range Interpretation Code Description Data Nel rce(s) Supporting Document(s) Discharge Summary [facility] IBXLWd6dXfJUVyZp97/UCSqfXHAsi6HrZOspEYe3UIquCXDeU2RoOMB2bV1fAAS8EGxFWgLxYcKzDwO1 lbm ZiZkcSZvZiERJtShlWRuRnXQvaVwfnpWSnLC3YpCM7POWvV47eVUAiWKOkP5GeLFXjDZQ+Fa3YFRDbfE EjPC2YAnbX7G6FputU9C2A/vZZQEKMMZD5TOocQ9e+OXXty4C3P0N51HlJQ8kylDzaCfFxp4I3WrXQ0D uhhKlMZ3wc8nnvmpdae7haww/+I/bjMAgCUfxb/4yd KplN1vc/iFtYAwyj7L+2NIqyYflC4DM6Uw8vFyVcEhf5YUNSHIsu75F0gzCP2SonQedhYn+T+TKbvRAf bvsscEt63cWPk/QHae8AE6qtli7VH/8Sry/Np93bzuGgdf05WHsDNCMnUXG8Yy11Ifm50VdDcfjEJnQY uL2Q2B4VmZtOx2hmLtqtwTt12b1y4zdrvXiPj2ZVGZ Dsb06MVmoZvwG3ZbW3DK/W+TBxXx0WSpSAFbzFn7bZONrsS12EsIXMKk1sKDao8s5FJ3V/22BFvbI2HU XT8wVXk9rMgAqnYeJ4fR6W/Zfp07o4z1/i50gjlgWG46vBTfOkImFy99xKoR911+nuD10N0TEbiIoOfc JwHIasgfY6TSisvpGt3Enf0SuaMpjwgsVugpiUQTuS [file] ZWMxYjA+YH5uRNo+Ed6Qs7AtukL8hcLbGOaxSIW1Bs6PKAMLY9WEJv== ID Date Data Source [id number] 04/19/2019 02:57:42 PM EDT [facility] Name Value Range Interpretation Code Description Data Nel rce(s) Supporting Document(s) Operative Note [facility] DIQKSd1zNkILUqEr15/ZMFqxOAXbu8FnLHpwSXg2ZXjpZZQbJ6GtPAU3pA5oWTD5WYoOJdVcGtWcRnP4 lbm [file] ICAgICAgICAgICAgICAgICAgICAgICAgICAgICAgICAgICAgICAgICAgICAgICAgICAgICAgICAgICAg QOEnBTOtDMQjPKMhNX9EMFUyUJImQMCtREBkMTTcYNDaETWiQUTyYBPtDSSkCERiDIYvMSUkIWSxXIEo ICAgICAgICAgICAgICAgICAgICAgICAgICAgICAgIC SsTUGlBIGbLZBwJHYsYVGqITDnOQPvNJ8WYSUgCEMbJSKzTXRjFJPdYDQzWKJkDYChKVOoZPMfQFWeUE AgICAgICAgICAgICAgICAgICAgICAgICAgICAgICAgICAgICAgICAgICAgICAgICAgICAgICAgICAgIC AzAXXbHL6TPPRbLRThXXDuGRZjPSJzROMxLSThFOCl ICAgICAgICAgICAgICAgICAgICAgICAgICAgICAgICAgICAgICAgICAgICAgICAgICAgICAgICAgICAg UTUuUVPwQMVcYFOxFLGjJD3PFECwSQDdEKQhJGFrYZZuKHAdIUSjPFShTHRbPGRtYYQiTVIlPVTiNDZg ICAgICAgICAgICAgICAgICAgICAgICAgICAgICAgIC BtGANgSRGfUAQmUEHlMEKnABVmUIVgTWMwTM5GZAFoLGBzTCMnGWOeTPBiTURvHTYdATMpWDItCWCiBD AgICAgICAgICAgICAgICAgICAgICAgICAgICAgICAgICAgICAgICAgICAgICAgICAgICAgICAgICAgIC IhIZDoXHZrCF7WHYAuZDWyFYOfHGQeUTScXBFnSBDt ICAgICAgICAgICAgICAgICAgICAgICAgICAgICAgICAgICAgICAgICAgICAgICAgICAgICAgICAgICAg DMIfFXKbBPZpNPUbJZKbIFVmAJ6GQPWyTASiUPNxEWJzDTVtXSYaTIKxCFLvLSKwXQAtNBFlDRMmHMCb ICAgICAgICAgICAgICAgICAgICAgICAgICAgICAgIC PhUDVwOKAyTXBsEGQkMZIxKKBcUVScMHAnLDDvAZ0PMOWlDHUzXITtRGUzWTCbXVPoHRQqQSVlVYBzDQ AgICAgICAgICAgICAgICAgICAgICAgICAgICAgICAgICAgICAgICAgICAgICAgICAgICAgICAgICAgIC FtOCLlEAJiVEImMM9SHGWlMIDcCEJzTZBfVOWlJNPz ICAgICAgICAgICAgICAgICAgICAgICAgICAgICAgICAgICAgICAgICAgICAgICAgICAgICAgICAgICAg ZCPuPOXtNKBlNSNyBWYrNZJhEEHfVR1CEN22zOIad0I3PGXeTU6stmx/Ka5ROXatsyFplSCpLA7DStGn UF0hqm8BBtYsRC8tgo7JLGuPQqHmZ8L9zWDkAPTwYX QXQpYsE67nQUkiAl69OAovJSDlTpOfWBw3Ry2QUtTnH1voXTXySdI4RAKsVbZ9LMPrUyD7OKFqGmBbHS yzCJ4Tw0HsiBRjBRd+Yx1BGQ6cg3NkEGuoZIUwUZ3lat1RQPnAQmXdK3SoxsC3BXN7LFKyLj6AREVsGA IijFUlOJOnRXXJLtNpD1FwuZ93SYIQUz6+DQplbmRv LstAEnG6TOWoz4PjOOt1JO8WFZObCQl6dUNjI7ByhzB9oGZcEM1dwMZqMkiyJAengZXxdNDTVWHwO8yh jgnbGR0uOEIyEx2aSq9aCVQgPWEoWoZfPXSVIO5UGYYaWXQwaBAmIHAeQHQLZC9KSRnpYDU7ESMtbyAj pAAsTEejCX6KNZLdwtUnFYtqCIBBOWa+Ss7DSQ0yr7 OlYDaxSVTgKV4yqv6FAKaUOnSjD0X2gZMlH9J2TNzgXx2MGTUoYWYdVIHkFSGJIPxqUH7OWC1udbI4OD 0JgGOjIDBdYFRidOXpYZp2I29iqHGhYSttKW4PEBJ+Patsy+Zc2WQPXxISVzDRRgAnAkODXYObDlS8VsX1 PQh9CdO4RzVJ11uUgvqtQiLFahHB9JDP6tFTAoZLHS SP6ObDCdvZ9aazUaUTAeXQNIYtDdH99rbVRqTQUaJDC5VTKpFe8MDNWzJ9KyaaCwpJeugtGoHCAhHKMX OM6EGPjitnGbeVZiePweOW58kTfrVU3TPi1SZwFcWO5lgh1EtGMrUs9FXROvJE8TARYkRUDnIWWxDJL2 BGLuEzDsVKfjJHCqOTWzHGL8RRGrDZAkSM4FApQuEI KqRAJyTfUuYCEzFJAhna1XFYLaQTZjDrp6NvRuGTNjLJQuWGplZANkGVOgNFR6RXNjHJCjHV4GYiZgDT VqSQN9BXpiPQHsXZQnfh0XCJNaCDNtFlgsWpJqHDHbKHNiEAinVIZuGVV8MIB0PZLgGITyTT8YJbFsVO JpDJO3XfUlQUUsPTRunh5YNBJuBGDcVHFzDAQgFLLu RGWfUFiaWENoVAH9WME5GPIkXJJmDF6WCtBcSHYtXAstNypsOEQaFYAjzi8AVZWrOFDbFMQ0XVFmECJc QIXbCSrbCUDtYNA9YnJ1NOXvCGAtBA0IAeAjTUJnSEJ1FEhuKIYzLGTkyo5TFDHyNHHrWKvxGGLwQGKb OULiDHkxFJIwAKNfHEB7PSEsLTMvDG8EWvKuGCWmRK I3YXZuGVWyGXEmbr9LPCDtEUUjTec0QjTgUGNwNGEwYKevSGXjQPXtDLFkZIXjYDYzVQ3ZTlKlJVCaUG FzFLLcFQUnTMIkhs8QtEYwaMrqdl8CGAiAPd5HdXgxQWXeQGtcHf4mtWOrBQIpGBFQBx8FtqXqIVZtUU DJVBvrVFZrRAN0IMouCsKsFZPzAPDbY9A2KEBdDWV7 JJisLwGlFSY9RlX9BQvmX4BtWYMaIRE9XSBkZBz3QLD5BdD7T5EqM1ZhYmm+RK8zHCq+Ks2Bf4LiijA8 sjFwCTwiVkSiRO3DYPZNJ5DXBk== ID Date Data Source [id number] 04/19/2019 01:27:10 PM EDT [facility] XR CHEST FRONTAL ONLY [id number] RESULTI nterpreted by:Royce Martinez, MDPROCEDURE INFORMATION: Exam: XR Chest, 1 View Exam date and time: 04/19/2019 1:14 PM Age: 73 years old Clinical indication: Other: Evaluate for ptx after pulling chest tube TECHNIQUE: Imaging protocol: XR of the chest Views: 1 view. COMPARISON: CR XR CHEST FRONTAL ONLY [id number] PORTABLE 04/19/2019 5:44 AM FINDINGS: Tubes, catheters and devices: Left-sided chest tube has been removed. Right Port line remains in place. Lungs: There is tenting of the left hemidiaphragm and possible minimal atelectasis or infiltrate in the left base. Remaining lung garsia are clear. Pleural space: No pneumothorax. Possible small left pleural effusion.Heart/Mediastinum: Unremarkable. No cardiomegaly. Bones/joints: Unremarkable. IMPRESSION: 1. Left-sided chest tube has been removed. 2. No pneumothorax. 3. There is tenting of the left hemidiaphragm and possible minimal atelectasis or infiltrate in the left base. Possible small left pleural effusion.THIS DOCUMENT HAS BEEN ELECTRONICALLY SIGNED BY ROYCE MARTINEZ MDThis document has been electronically signed by Royce Martinez MD on 04/19/2019 1:27 PM Name Value Range Interpretation Code Description Data Nel rce(s) Supporting Document(s) ID Date Data Source [id number] [facility] Value Range Interpretation Code Description Data Nel rce(s) Supporting Document(s) Glucose [Mass/volume] in Capillary blood by Glucometer 233 mg/dL 70- 140 H [facility] ID Date Data Source [id number] 04/19/2019 08:57:13 AM [facility] XR CHEST FRONTAL ONLY [id number] RESULTI nterpreted by:Hayley Blum MDPROCEDURE INFORMATION: Exam: XR Chest, 1 View Exam date and time: 04/19/2019 5:41 AM Age: 73 years old Clinical indication: Chest pain; Additional info: Chest tube TECHNIQUE: Imaging protocol: XR of the chest Views: 1 view. COMPARISON: CR XR CHEST FRONTAL ONLY [id number] PORTABLE 04/18/2019 3:43 PM FINDINGS: Tubes, catheters and devices: Chest tube slightly changed in position though this may be related to projection. A Right-sided catheter with its tip in the superior vena cava. Lungs: No consolidation. Pleural space: No pneumothorax. Heart/Mediastinum: cardiomegaly. Vasculature: Tortuous aorta. Bones/joints: Unremarkable. IMPRESSION: No evidence of significant interval change. THIS DOCUMENT HAS BEEN ELECTRONICALLY SIGNED BY HAYLEY BLUM MDThis document has been electronically signed by Hayley Blum MD on 04/19/2019 8:57 AM Name Value Range Interpretation Code Description Data Nel rce(s) Supporting Document(s) ID Date Data Source [id number] 04/19/2019 08:43:27 AM [facility] Name Value Range Interpretation Code Description Data Nel rce(s) Supporting Document(s) Glucose [Mass/volume] in Capillary blood by Glucometer 242 mg/dL 70- 140 H [facility] ID Date Data Source [id number] 04/19/2019 04:20:27 AM [facility] Name Value Range Interpretation Code Description Data Nel rce(s) Supporting Document(s) Hepatitis C virus Ab [Presence] in Serum or Plasma by Immuno assay Non Reactive [facility] No serological evidence of active infect ion. If recent exposure is suspected, test for HCV RNA. ID Date Data Source [id number] 04/19/2019 03:48:21 AM [facility] Name Value Range Interpretation Code Description Data Nel rce(s) Supporting Document(s) Leukocytes [#/volume] in Blood by Automated count 9.6 10*3/uL 4-10 [facility] Erythrocytes [#/volume] in Blood by Automated count 3.90 10*6/uL 4.1- 5.3 L [facility] Hemoglobin [Mass/volume] in Blood 12.4 g/dL 11.5-15.5 [facility] Hematocrit [Volume Fraction] of Blood by Automated count 36.6 % 3 6-45 [facility] Erythrocyte mean corpuscular volume [Entitic volume] by Auto mated count 93.8 fL 80-96 [facility] Erythrocyte mean corpuscular hemoglobin [Entitic mass] by Automated count 31.7 pg 27-33 [facility] Erythrocyte mean corpuscular hemoglobin concentration [Mass/volume] by Automated count 33.8 g/dL [facility].0-[facility] width [Ratio] by Automated count 16.5 % 11.5-14.5 H [facility] Platelets [#/volume] in Blood by Automated count 112 10*3/uL 150-400 L [facility] Differential cell count method - Blood [facility] Neutrophils/100 leukocytes in Blood by Automated count 75 % [facility] Lymphocytes/100 leukocytes in Blood by Automated count 14 % [facility] Monocytes/100 leukocytes in Blood by Automated count 8 % [facility] Eosinophils/100 leukocytes in Blood by Automated count 2 % [facility] Basophils/100 leukocytes in Blood by Automated count 1 % [facility] Neutrophils [#/volume] in Blood by Automated count 7.25 10*3/uL 1.8-7 .0 H [facility] Lymphocytes [#/volume] in Blood by Automated count 1.34 10*3/uL 1.2-4 .0 [facility] Monocytes [#/volume] in Blood by Automated count 0.74 10*3/uL 0-0.8 [facility] Eosinophils [#/volume] in Blood by Automated count 0.17 10*3/uL 0-0.5 [facility] Basophils [#/volume] in Blood by Automated count 0.09 10*3/uL 0-0.2 [facility] Nucleated erythrocytes/100 leukocytes [Ratio] in Blood by Automated count 0 /100{WBCs} 0-0 [facility] ID Date Data Source [id number] 04/19/2019 04:09:28 AM [facility] Value Range Interpretation Code Description Data Nel rce(s) Supporting Document(s) Bicarbonate [Moles/volume] in Serum 25 mmol/L 22-29 [facility] Chloride [Moles/volume] in Serum or Plasma 103 mmol/L 98-107 [facility] Creatinine [Mass/volume] in Serum or Plasma 0.96 mg/dL 0.50-0.90 H [facility] Glucose [Mass/volume] in Serum or Plasma 240 mg/dL 70-140 H [facility] Potassium [Moles/volume] in Serum or Plasma 3.7 mmol/L 3.4-5.1 [facility] Sodium [Moles/volume] in Serum or Plasma 140 mmol/L 136-145 [facility] Urea nitrogen [Mass/volume] in Serum or Plasma 17 mg/dL 8-23 [facility] Anion gap 3 in Serum or Plasma 12 mmol/L 8-15 [facility] Osmolality of Serum or Plasma by calculation 299 mosm/kg 275-300 [facility] Creatinine/Urea nitrogen [Mass Ratio] in Serum or Plasma 18 [facility] Calcium [Mass/volume] in Serum or Plasma 8.6 mg/dL 8.8-10.2 L [facility] Glomerular filtration rate/1.73 sq M pre dicted among non-blacks [Volume Rate/Area] in Serum or Plasma by Creatinine-based formula (MDRD) 58 mL/min/1.73m2 >60 L [facility] Glomerular filtration rate/1.73 sq M pre dicted among blacks [Volume Rate/Area] in Serum or Plasma by Creatinine-based formula (MDRD) 67 mL/min/1.73m2 >60 [facility] ID Date Data Source [id number] 04/19/2019 04:09:28 AM EDT [facility] Name Value Range Interpretation Code Description Data Nel rce(s) Supporting Document(s) Phosphate [Mass/volume] in Serum or Plasma 3.1 mg/dL 2.5-4.5 [facility] ID Date Data Source [id number] 04/19/2019 04:09:28 AM [facility] Name Value Range Interpretation Code Description Data Nel rce(s) Supporting Document(s) Magnesium [Mass/volume] in Serum or Plasma 1.5 mg/dL 1.6-2.4 L [facility] ID Date Data Source [id number] 04/18/2019 09:09:01 PM [facility] Name Value Range Interpretation Code Description Data Nel rce(s) Supporting Document(s) Glucose [Mass/volume] in Capillary blood by Glucometer 272 mg/dL 70- 140 H [facility] ID Date Data Source [id number] 04/18/2019 04:46:12 PM [facility] Name Value Range Interpretation Code Description Data Nel rce(s) Supporting Document(s) Glucose [Mass/volume] in Capillary blood by Glucometer 245 mg/dL 70- 140 H [facility] ID Date Data Source [id number] 04/18/2019 04:05:29 PM [facility] XR CHEST FRONTAL ONLY [id number] RESULTI nterpreted by:NAGA MajorROCEDURE INFORMATION: Exam: XR Chest, 1 View Exam date and time: 04/18/2019 3:55 PM Age: 73 years old Clinical indication: Other: Chest tube TECHNIQUE: Imaging protocol: XR of the chest Views: 1 view. COMPARISON: CR POST BX CHEST 12/12/2018 9:53 AM FINDINGS: Tubes, catheters and devices: There is a left chest tube in place with the tip projecting near the superior margin of the aortic knob. A right infusion port is present. Lungs: The lungs are normal. Pleural space: There are no pleural effusions present. There is no evidence of pneumothorax. Heart/Mediastinum: The heart is not enlarged. The pulmonary arteries are not enlarged. Bones/joints: Unremarkable IMPRESSION: No acute abnormality. THIS DOCUMENT HAS BEEN ELECTRONICALLY SIGNED BY JOSS TANNER MDThis document has been electronically signed by Joss Tanner MD on 04/18/2019 4:05 PM Name Value Range Interpretation Code Description Data Nel rce(s) Supporting Document(s) ID Date Data Source [id number] 04/18/2019 10:57:08 AM T [facility] Name Value Range Interpretation Code Description Data Nel rce(s) Supporting Document(s) History and Physical [facility] VZLHTq1rFpCLJzNx47/GNGoiGPDcq6AjJMcyZAc7HSlbLMOoZ7WnMCZ5rZ3kASZ8XGsJNeYeEsAkXxZv m [file] ICAgICAgICAgICAgICAgICAgICAgICAgICAgICAgICAgICAgICAgICAgICAgICAgICAgICAgICAgICAg ICAgICAgDQogICAgICAgICAgICAgICAgICAgICAgIC AgICAgICAgICAgICAgICAgICAgICAgICAgICAgICAgICAgICAgICAgICAgICAgICAgICAgICAgICAgIC AgICAgICAgICAgICAgICAgDQogICAgICAgICAgICAgICAgICAgICAgICAgICAgICAgICAgICAgICAgIC AgICAgICAgICAgICAgICAgICAgICAgICAgICAgICAg ICAgICAgICAgICAgICAgICAgICAgICAgICAgDQogICAgICAgICAgICAgICAgICAgICAgICAgICAgICAg ICAgICAgICAgICAgICAgICAgICAgICAgICAgICAgICAgICAgICAgICAgICAgICAgICAgICAgICAgICAg ICAgICAgICAgDQogICAgICAgICAgICAgICAgICAgIC AgICAgICAgICAgICAgICAgICAgICAgICAgICAgICAgICAgICAgICAgICAgICAgICAgICAgICAgICAgIC AgICAgICAgICAgICAgICAgICAgDQogICAgICAgICAgICAgICAgICAgICAgICAgICAgICAgICAgICAgIC AgICAgICAgICAgICAgICAgICAgICAgICAgICAgICAg ICAgICAgICAgICAgICAgICAgICAgICAgICAgICAgDQogICAgICAgICAgICAgICAgICAgICAgICAgICAg ICAgICAgICAgICAgICAgICAgICAgICAgICAgICAgICAgICAgICAgICAgICAgICAgICAgICAgICAgICAg ICAgICAgICAgICAgDQogICAgICAgICAgICAgICAgIC AgICAgICAgICAgICAgICAgICAgICAgICAgICAgICAgICAgICAgICAgICAgICAgICAgICAgICAgICAgIC AgICAgICAgICAgICAgICAgICAgICAgDQogICAgICAgICAgICAgICAgICAgICAgICAgICAgICAgICAgIC AgICAgICAgICAgICAgICAgICAgICAgICAgICAgICAg ICAgICAgICAgICAgICAgICAgICAgICAgICAgICAgICAgDQogICAgICAgICAgICAgICAgICAgICAgICAg ICAgICAgICAgICAgICAgICAgICAgICAgICAgICAgICAgICAgICAgICAgICAgICAgICAgICAgICAgICAg HUOqZYGiZDXbFJLaTYNrHHk1Z5hjXAUaDHFuEX3vUG d3Jz8+VXeHIuCjVVC4scLhpZ0ZWR9kj2TwYMpqFBBoc4DkVTo5GN1LVHEfJHchIR3NZUtajn2DFZGyYN FdnMWVj0wuHpGpVWY5NSLmKpmyQD3HKUNkK6wirxTfRMVwRJRIPUytMIHLML0RUpVaK7LuwO97DXWAQt 4+HAthlfQdPlvCLsJ7ZEFpm4IlCIa0IC7ENLNrBhee z1VnEmSxKCTDVTumGI1HZWD0ABApHNHnAd6QQWPrD758rzIxKU8IMj4BZkKlQN3jch1WGqMxUVPqNmbA Ura0HPhvMC2XcBOfBAxXAcEzFnkoTSizjBKmjSBVWXFcJ5qctiehLY8wPSIkZe0jDt6gYNLqOBJbFzK6 CNPUTS9XCTNmKFBsjCZrRKBwXUVGZF9MDMyfZFX5IW PmzcTmwVVmEYlxAD4XOHWkrxZfFPbjADBDANu+Or0FYB3ks2FfXOumJAQrAJ6tkl6MHKuOFrPiR1Q5tX GsC7R0FZqnXj5POBRyXKIuRCrmFBHPBMapKL4KUJ0yfgT1TP6EfTGxEIMlVBLjrUGwHFg9E69vwHWmNV tzOR2VJZX+Patsy+Ir3YXFNtESSeKTCsCkAwBJDLSzKg C5RqO4PVj1YgG8WyUU15yKvwmxWyQOloJA5AXU2yIVFjTZDUUO8DaPCuvG2qwtGgGVHqTKSGUoSkA63d bBCzBRHsNMZ6AOWyEd2VAEVsZ0CuqzLqgYrfzyUuZCUzOSAAEQ1EFFemdrUpoSGxtSnjKY21qCnhCJ8R Qj0RRfLtYR8eju5RsPWhYx7STMYxJf7CHAMqBVSlRN LmIKU8ZNVoAbVpBGwvBRSlHGYlNHV8SJNtYIEbGM8UVfMuLGWyWTW5IebxFSWvEEYywl5PUSUcJLHdRi RlLJIaJVHxIFTzCUziRVWoEHHfMJZ6HBTmLSOwZH3WRaQeXTNcWIJeEPuiPJXhVABljx0STGJrODPxNG CnGiTmYLVcOWJgPPqyFXNsFFE6UoKnJJOmZEBqWA7U NjVyGPWjQVs0QKPhJHMxNINqfy9OYTAqFQUwQEV6CWZtZVJkNXRsKSxaAKGuEOC7IFIeDJMgDTAhGR6J AsFnZMMsGNn7ZDKyMHNoSPIbpz4FDDJlCOTkPLfeJOSiDNBuMMSnKDapKQFsWXQ8OOCjVMPcMPCrMD6R IiErQOMeBXHtBHMlLVVdRIApgi9DVQReBBZlKEC2WB QnEMOnVNMdTYuzCPIaVIQzAcX6EWLqNUMqCR4YJlHeGTJqBCV7LLWyXYXnFOXgoe1WOZZtCMNwNPr3HJ ErCXDlLRExWBmbQCByVEUkIgEsFEFjLGBlVA2UOhOxSJDyXMHsWTYnDFEuEKVfbj3BEDEdYSCqZtCqRn MiNPTeWQQbVPs2nqTbcSEvVMp6NS0KK4XmxaCgCwOC Gi9Ws191FNHjZTLsHx6PC6ueJh1sPBFtJFWCRt6GAFl1BIFmZyJ6LsReEkNcGMknA7N9PZWuOqPtUDV4 HpS3TKD+AFjfYBRgHtdkF7CwERRgIgOzEpk1ZeOsMLS9XLXkQXR4Ns9iSNSMNk0+DQpzdGFydHhyZWYN DvQsHvM0YFiaPHDLIt4E ID Date Data Source [id number] [facility]/18[facility]2019 11:15:[facility] Name Value Range Interpretation Code Description Data Nel rce(s) Supporting Document(s) Glucose [Mass/volume] in Capillary blood by Glucometer 280 mg/dL 70- 140 H [facility] ID Date Data Source [id number] 04/18/2019 10:18:25 AM [facility] Name Value Range Interpretation Code Description Data Nel rce(s) Supporting Document(s) ABO and Rh group [Type] in [facility] Blood bank comment [facility] ID Date Data Source [id number] 04/19/2019 07:28:55 AM [facility] 04/20/2019 Name Value Range Interpretation Code Description Data Nel rce(s) Supporting Document(s) ABO and Rh group [Type] in [facility] [place] ID Date Data Source [id number] 04/22/2019 06:18:00 PM [facility] Surgical Pathology ReportName: Khang JOENS JMRN: [id number] Number: [id number] Date: 04/18/2019 00:00Received Date: 04/18/2019 14:32Physician(s): JOSE ALSTON,JOSE FINK,DOSpecimen(s) ReceivedA: Left lower lobe wedge FSB: Level 9 lymph nodeC: Level 7 lymph nodeD: Level 5 lymph nodeClinical HistoryMetastatic colorectal cancer.DiagnosisA) LUNG, LEFT LOWER LOBE, WEDGE EXCISION: METASTATIC ADENOCARCINOMACONSISTENT WITH COLON PRIMARY. TUMOR SIZE 1.5 cm. MARGIN NEGATIVEB) LYMPH NODE, LEVEL 9, EXCISION: NEGATIVE FOR TUMORC) LYMPH NODE, LEVEL 7, EXCISION: NEGATIVE FOR TUMORD) LYMPH NODE, LEVEL 5, EXCISION: NEGATIVE FOR TUMORElectronically Signed By Andres Nash M.D., Attending Pathologist04/22/2019 18:18:53Intraoperative Consultation [facility]) Lung, left lower lobe, wedge excision: Adenocarcinoma. Marginnegative (2.5 mm clearance). Per Dr. Nash on 04/18/19.CTC/VU/hjg/pmwThe attending pathologist named above attests that he/she has personallyexamined the frozen section preparation and rendered the diagnosis. Gross DescriptionThe specimen is received in four parts.Part A is received fresh for frozen section labeled with the patient'sname "Mimi Jones" and "left lower lobe wedge". It consists of a 9.5gram, 5.5 x 2.6 x 1.5 cm lung wedge which displays an 11.2 cm attachedundesignated staple line. The pleura is pink-red smooth and displays apuckered kelsey-martinez firm area. Sectioning reveals a 1.5 x 1.5 x 1.1 cm wellcircumscribed kelsey-martinez firm lesion which comes to 0.2 cm of theparenchymal margin (inked black) and abuts the pleura in theaforementioned puckered area. The remaining parenchyma is pink-red andcrepitant. A veterans employment representative perpendicular section of lesion with inkedmargin is submitted for frozen section in [facility]. Cath Lab Radiological Technologist sectionsare submitted as follows:A1 - frozen section residue.A2 - perpendicular margin to lesion.A3 - lesion with adjacent parenchyma. CTC/hjgPart B is received in formalin labeled with the patient's name "Neal" and "level 9 lymph node". It consists of a 0.4 x 0.2 x 0.2 cmovoid kelsey-pink rubbery lymph node which is submitted in toto in onecassette. Part C is received in formalin labeled with the patient's name "Neal" and "level 7 lymph node". It consists of a 1.3 x 0.4 x 0.4 cmovoid diffusely anthracotic rubbery lymph node which is submitted in totoin one cassette.Part D is received in formalin labeled with the patient's name "Neal" and "level 5 lymph node". It consists of three irregulardiffusely anthracotic rubbery tissue fragments, 0.3 - 0.6 cm in greatestdimension which are submitted in toto in one cassette.CTC/hjgMicroscopic DescriptionPart A: The tumor is positive for CK20 (partial) and CDX2.This report may include one or more immunohistochemical stain results thatuse analyte specific reagents. All positive and negative controls havebeen reviewed by the attending pathologist and are satisfactory. The testsw ere developed and their performance characteristics determined by [facility] Pathology department. They have not been cleared or approved by the USFood and Drug Administration. The FDA has determined that such clearanceor approval is not necessary. Name Value Range Interpretation Code Description Data Nel rce(s) Supporting Document(s) ID Date Data Source [id number] 04/16/2019 01:33:15 PM EDT [facility] Name Value Range Interpretation Code Description Data Nel rce(s) Supporting Document(s) [facility] IKJIOr4uIiCAUnAmh5FsDlXkWLWrQS6dism4K1G0iWMkN0EhzEFge6uzK5NxU9XqBPIvDRYCTV5UdAOh jb2 [file] KJWU/qaTLJUU0oaNDVSzqiRRQEEYc1cGdkuTOUCATXK5QGT9kM7jfXsEMSRLTTW8W8QfyUbijyeAQJMD GNP8K3QRm2vdtThTKAtCWtptEWjFmJ76eQybgecFU5lDYfaldfetErxwNH9mOQYlLWoKPWmZrOTQVCUq DlwCyxtNNrU39atftSJ6vtx53VuAzS9Q6bybopESWm EWrBaHN4zsMQIUzheZ8x3dzN3BfZrGjcgUwjpFx9C5qk3/oUrLlOwZrrfNedSyAiRDAeTMXa++S681Qj YixtsDTwg/djzkvY8INm4YP6WXOh//af//G//uce6yQVNM/5r//systems technician/+H/+Wf/+M///X/+uati7HetYaz [file] ivOTJo7uI/MV4le+41e+sheri/jx6/z/DlwC64e1/hsk1Fm9Ar4x+6wB+mFjn6Eir2+QYe4RkqP7gZ36UT6 Z9019fv6PBrVDZMX4ON4a46j3+dqCyacVM7S6pQ5URt/Ge8F6KjF9+uLXy2/LX51Hx/55hw9CucfvlEs r6K/iv4q+vkmcazsJwaYFoGa5Genma+K/irur+L+Ku 4k1i3v8m/kE8lHxe1hznAZQGqE1FT36D45mw5rI0bo+H/lt74hjGbsEJyvm+H+Gu6v4/467u/iV/cx7H h+cQ8kychH7qr4ek/H8+vn/et+3r/tOTaUSjIE7Xd1nv8lCcwJf/eJh9PoZX6TV1iZ/bx/SbdGdq7w/M kXsjt7nli/6deEFpv5nLOjMhyUb761eyeqwy//I48z P3sc/uxx+LPn4c+eF+mAu2WojGroBjoI8eW46VJ7dF0AGsGtHOYqR/vKYq5rmT5e9RsG/BdVx0SZzywr K1u2jeN/csSvHPErR/uSNi2fdX2d7WzW/JcZs2GJq9bB/1+v8//XC/e3GvYB+/n/633+L1nsuYowVltQ sbUb4Gq6vGetNyGHg8umEnhl9sw17zmkT6tD0dq3pL 95D5z//D/ycf4f+bhgP/+NuQj5Ut4lRbKOGN60sO/6MNgPf/qK33vmgsZIZ7TVHpaZoyHYc/xdy5g7dP sd/ErKxshBbfYoqU5rF+tUw4AdxNdaCeqCunIkE5P1RXX+RHxkQoKVxhvOMD2ZaN9B4paT+FUgfhWIXw HzR7N6QNH+FYhfBeJXgfhViMHusKO/ly4eqKVbUbdV TbjiZgiGIhWrj4Q3inD6VCT6WNF/CsSvQnF/VnsAgD3SypuHumCzw9NP5CYW3CV4gJ0gN2zW5aYqB2/+ TctK2om6/kgMdgb61AV7aB1lA+wBn5PzqQygJraWNdNh8Ti3wE7t05Q+SGl0Z8ZuwoF61uyAc//98At2 gV4xN6xUtcFuRPtYSolDXGIF6DR7yf2kn3vQQ3s/Hf 2N1AmM0ul/KaWJr5b7wGWRCHuXHBqP/kGpDrLlVG9S/Y3E5wu/s2Sv3Tr21TbU65F/E/1N3N/E/U3c3z fuyGqTr4u64WOiC+J5VJ4E3qk1F7C5q0S+VSD/KpB/EWbib0BobNN6+MKU5il76r9NZ07bVcCW1OV5ne 0pBdZ6PL8Y1LsQsrUY+Rmhn3Y7NJtiJf+7r0ERrysy 30Z/G+/kpzztwH0v78Qlvmu/hnk5vVM+ojTF28Vl4rnDbr8U7qNJG6/H+2itOncQZ5KSvo/u70B/B/o7 0N+B/g70d6C/A++gxco09U8udA+POuQts5UfXX+SqkSj9NSICBlxAdM/KpB/ZaH9E6aVj/L3VRdLXTeW HKC88B79w70oW8rZ7fS2JN/YC/aGvWEfsKO/gv4K+i vor6C/gv4K+ybwh9a9VblLc0zn+TklYD/tspVAe5ots7cGE92Qf2+iNJlRcvZvqje49F90MI/0d8WTc/ Pr2rVnO/50aorhduA95ytGrdupqiE4+GGfsdOc/Grl3+mtZ9cDL+eDX+eeHdy3014uIdzRniW6PJbG2l g2Gl9ywYg14tq1Dj04hQ39rDrt/wbBHxCIA654ukyt Zxw4H/xQc5RdWrdSCBwqfw/76pfN+SE7N3XjwKykkWbvAtIZmj+ufX70d/FsHBejw768t+OORefkVysn ORe/dzG921+m87zTuIxcDgk12wz5735r9sAZzSnp5Tt5sgcFk/yKXw4XgK5y6onbox0lKTlIJ+JX6RjP afaSoe3dJ+wNe8M+znOx+NG4BvskWpZvCUr7DfFaVH jDTIwZ5CKF6OC1JU+B53fxq/uH8rl6TLz/A/7P2BdN00W/E/4B9SgH89T/E/9S7QuV35A/E/0L4NaG96 R/E/2L0LeT07P/58Lkd251vHXVF85ZzS7V41TCTYjKFpK7NQ7N6aq43Lr96oK+r7T5HAGrnbefF+S3J/ LbE/rbmtd0DL52Jh13bt+csvzC757LdF637xvQ54/j /dt4/yK/MSLqxgbgDQ91SmiK54NN5I37l165SvYaMCbddf1G/LdGhdZ4SlZoWcvrfw2rEF0w7+Tn5M6/ 2sewn/tZXc9poT+WyQ4Y9J6e2stL+VeJ/KtC/Alicia/2qza60Jq4/kJ2MfPYuGSJjR7VIW0C6/zyqr07fP 9oK9YG/YG/a1f3Cd/+wfrL1/cB/DLrCv/Wetz8ex5a ewG+lZi6EdvUprVDwOphKL5CD5k20db+OZUffRfVrvvSOzO2ru/irur+L+Ku4v+FUp7q/i/iL/qpB/Vc i/Hy43KpQoxo7ji4fm8sC0dZ1fO9+U251Btc1X6BY9nb8uS0jmngNG+VeF/KtC/Alicia/6iRw0BOfmrgq1 L+VSH/qpB/Vci/KuS3F/Jha3EiQ4+Nl5DEgemfZfQy mfz5G7R6y8A+VSH/qpB/Vci/BwUbRuGlmtYa5ZZuX86F/M07T2YlFP6T/K31J6NvQU0T/K30Y9YdRK7M /H08S9IkKE7W/iW0SAZ8nEI+WFgfLKwPFtYHC+uIikRLhcfbLM9msC9NAT2mvJ9O0dbE43ZD6uLQ+mBh urHcLhlZQjqnUdkAAquhb5I7dzS8IDC8jYU+WFgfLK wPFtYHC+mSwuCAJwycYN2hhV6Q37NU1kKBhdqoo84D987Lc63Jfuj3xeN79e0Aihk0elW76y3VguL/Ks IjRnUghbE00d9Hikv4ueTP3uaS/Victor Manuel/S02q6Qvwm3U9Zgna2suZ+S3F/LbC/ntNfA+GiffrBa/2scBe+ AgcP9MhV9X0paO1uGpU5XF+2jgfTTO+5et7c9b90Em YBfYFXaF/jmi4BsqcZ24royg7dsJ6AV41Wf0Ej3GzTbiVFxMKsWdp559RK8+8lUHWIY6ak3fZ+wGO/or 6K+gv4L+cy67r0Dx5Ge8qr09BbAL6J1Kpoo/5ylRo5WycDkt2M+iv4r+Kvqr6K+iv4r+Rp5lYf4t8HlT ftXgVw1+0wODBP5Y0GzNacFkZr7+6kAYAN3R3MmThd TxQ1225h6z4Swz8Ru5oK1+Yv9gY/9gY/9gG/rr6K/j+KL3j10u9/N0Ov1vI5jLxxzePT/ki2WqNztNr2 81+PMZSwX8TFk80+ivn/8LHWe/VQf6G+hvoL+B/gb6G+hvoL+B/yh6U08O6IrYkkSaL463r0400x8Pg+ 926D1Ku+/ltW9r5Wj6tjq5N/7u23sz3oc5jlFtPl/t tk8U8LYj8CV3l0/tOHM/+SYYWy8Qg7o4dG4bY7isZU/9hlhvP1SMfpF4xCdK+HPt3/aIP9f+zX2d7/Yz R8lull20Za/jz10r/lpnNL7eDK3r/ok13i3jH/5nt03k4/yTX+0+1urvss/4pe83aJ+vPk5+tfK9e/Kr lRfdk1+xEDTukwBi39Ati1hUrBYycA/q/M9d4X7a3V oLk6hvjhc/hqIbRi4m7WcHg9but+4Qa4mxF/AFi7fXdPpvCXpKZyA70En+8J5dH4eLaT0Hgb/occEusA pzOgpHweOa8M58ht9dY+nLm0PsyOweTUaBxp8nc59qOkSMuEhQ+xqZ2ZfM2dEFzU4EmP0JgE6MbG7NnH 6FaM4LyS7YgR3TuV+Jm3PdZ3+Y89kwlI9987Vx8c1t joGhYFzhelbJJv650npeFocVqoLb4Ci63/zn/LaubA4L+VcD+VcD+VcD+VcD+VcD+VcD+VcD+VcD+VcD 2CxH1vWT6ZjUlV1pSV9ulZ7ECA4GhxhKR/UZBuJXA/JphunJfR3MvkuFEAbdiK2X1QwNagLSd5rx8++w tbfTEb365IPrYWF4gp0wG+jQb8LiwWohNErOpvSV8B K3w45aI1kGYOt8hviFhe/qHJ7Mp2lHQHgJIWwY1PW12Il/E6UsdpeZoCg6oi4xV+eBw4NqqF/Bn7Jxxg Gsgy6uT+aYk4UzfCpkOfb1V+hvoL+B/gb6G+hvoL+B/gb6u/uI4yTbL+l72yh3BNce03L6Ur1jzbPaU1 4+8sraI8p+39065BI3nC5lW5lG7gH4UB/YB+x4fuv8 Xxh1+EHgrS0fE2cQrhVfOJgDOlcIGVNV8XLdRvhkjrvSfQ0D8gV00meq/2g0+tvob6O/jf42+tvob6O/ jf42+cq9GYZ9RvC2PUodTbfQIzsCRi0GuzgrGwTxd4E19MB8zkB+NRC/GohfDcSvBuJXA/HeqzzKFU3F gfoMA/UZBuozDNRnGFgfHFgfHFgfHFgfHFgfHFgfHF [file] 37/7/l4N2943/GvEbb5y4hZz0iO5r/762t6ghg3bE9 549/b7N1/1nFZYWer48mn/7TGwVrmDB/QP//APL1/86af/+4c///4vf/rjyx//6W0wnfidX/z+Dz/81z /8+Ir9jW8+WfydA817/4viYb448w7//qxtk7470/E3L/Rbh5bc8/33w8w9L02++/4be96959I/9jdOIL qLT8183hvBV//7u+9ev/O1vozj669d/friltN3Vt/+ 5rvdegt6q5/evqyvvf/60cJ3pu81/OrNd1+8++D7I3265F+55dbid95w+kouG6a77ryQJ623spfVz046 +fLh5V/efP/21fzN6+9+rdH241++l8/09b7/66fw664LoK037i/u2n6oer4hd/Hm/ftvPr58+Y3pQ4b1 LS/PX/vd228/lc1o5fnqxllhodoGt0q92+v9u1dxt0 evv//z32p05s5DQvcLKf211hkrz/hf5ns5974g82/wlAnEdPgdM69p7i7WW119/e2bD2+/ILvv7Kyv5/ js1gUQTh//2WP/+uvQ/9zyc8l/yMxkr2u0W61Dfb/y1lg8l39/7levI+92n0mgwwAl/a/f/jgfQ6Zhcy tPf/yP3//5px///eW//s+E53044ZktDfj914QoP/Pl P758+hx9d6dxvhaji5I+t79/wG5o7zxEM6qRIE41+/aRuC086O+NWbl/icZPP/0bJ3d6tChxKB/wT98D t36lS0/cr9/8vwDn/2vvHM6n+zuRZdBKfxn5o1/ooxxl+F0uL7/hTWvh7/ispE13gr4Dj4DTop7//seP f/8ydEgfSc0ei9x95jgPKkxUz63++RO54htPxeW/+f sgim8rZqnT2x8/85T/8aBXn1t2T5mum/zJ5vR8G//4n//08ucf/vPHT87+PxNbXtbfk4q+8k4v2dOs6S /P/gweN8g4/o//+eOf//sPf/jpt452+whp487/3kr9+dlv7J8/fPfy7//t9bf//k9//PnpZ8G+n51+ne KJ/fPHX/zzx9/chw3Ysw/+QfqFy/s90Sviz6tg1cIm fdL/8VegO8/x6s727/e6L9zVum/78NnHlx/+nx//8kmE0SBXLoBxF27++Abt0jxv7ECz7z/887/9/c8+ fd+KX/340w9/+OQmj0/aW845m1/74S+//+MFh43Lxy0+/OlPP33+M/T+wV/93TylVae7v0rT3KWO//jj 7/7PP/7+d68X+Mvl3WlB0nhsvZke31U/+c/XcfPvn7 /L3J022+0aX6Yeo/mTv/h675qxS03PFhJHU/7/P/L4/4nvki77ppt/fnyRlz/4f5i14gJ+Gwmwm4v8g8 /963/et19+/ZoE3RT8fyBKL//7sgS5neCnN2yPddacV9329ydwLa/6aL1eOlLNqA9WzKgLQIlmawVllJ GiUV8AII3oe8EiVeI0JUMnm2EmIVzwVEf0xVSrVThq dcVeu7WvfdbqU8Wzs6QoOtOsFHMlEvHyUtg6ABZkBaQ5qPLyUjQxRNYbB1DjPNDwWdF8MuTaDEVJZB1A YXJlbnQgMiAwIFI+EpQfHV8piykyGZXmp4IiSAapINpoANYeD9E0pMawOKNaM1EptL20MUNaL9KaehP2 JUY7VOPsQsQrQFDpuGNxXSIcEVF+CrGiIM5rbuhpVB Wbx7WnXCehDFX7aV1oMDrLAXKVNThFWYrhEqL2x24uxgKWJVWvSHEdQZ0VdpZyzTboglRfpEXcLKF3Um WgCYKwSYGyWeWtWVQMSTMjCVSiWXNbDXKaI6TzwZyvDPyRFXAWHAlWOWrkMuZol0S1XEEwphUFWKTSX7 2uSU0PXlJLDRDjAWE9YmcmDNIeU4VlpmVcsQZcGLXC YWjwCphzIJZgeN9juDwtH8LgSNY0g0XyVY4EY0TwXSSqIHAFYGA7x7JpHMQixfqcenmiZxRiRKCaXJIb XUZdYC2Scw9ztSSiohQrZUGHWGdcMotxMF6brRswcgnhH4SayDLdAGL+CcJzIZ8nbv5+CjEgMCBvYmo8 DIRzFMnsBJUfOQRqLAUnC4rbZHLuOxVfBWPqDqIpHT 2Gf5CnaJSdTf0stwTqOhtCcTYoMdkdXWOxTWOxBCKvUzVWSAHhUMVwBRVnIMG5OENeSPXaBYvlILEuIW VpHiC7TELsHTGtPL8dXlTzEKVjSnB5PNRyRKFnCDTkpvKLQFPfVLL3FKU9BlJhMCSsZFMbGWdnZABbOL HkDVUnGJG1ZDE4VJTyVaJlWEQaNMNkNPSeZCBkDLUy ffQMEROwHSCnRUL8XZGzABZtYVNnRAqiXCDnNKOhIJzqHBIhVAFzLD1aJlPrLJJdTBOaMLwhVOAqTLRy ovNLRWGuUYNdMKMwQMLzNNElOWYqCTvmCFAuSILnJQKsGXKdDXXmUX0zRnVxGYDuXDJ4KUTbNJVpDCNv fyVOMUAyQZCiJQj7FSXkECIyGPFlOJkoSRMeHSFzIW K3CHNcJQNjXO3oUhZoLIIeUCD0OdOmFUFjQMHpjfSCDNPyUOOuKBH2FnXtOJLqVZMbYHvvQWWlKFPmCE qoLVIxEAWsWY2vLdLkYFUeLJMoBXrtUOTuJAVzzaEAINOvVCWvKTZaDiXlNZRnDLWqFGqtHYUpDJErWZ vdOGXnJCCpYW9cUlVnDRZcQIX6RBoaELCcHWQelnWY AERwAIKjSAvnBDYbQSQtFEGiUDpmUMByJGHlZGQ2DJRsDUYjRM9dHcQrABJgTTCbENDkHvI7YpLvMzTH hZJxeSusrtw8GQkgY5i9HMPlHVueUK6lquDjTEOkZnceDp2rhBD9JOKhNgtUFd4To0NypdG5evTxOgRv Jah2UvXdCK0O ID Date Data Source [id number] 04/15/2019 07:22:32 PM EDT [facility] Name Value Range Interpretation Code Description Data Nel rce(s) Supporting Document(s) Bicarbonate [Moles/volume] in Serum 26 mmol/L 22-29 [facility] Chloride [Moles/volume] in Serum or Plasma 97 mmol/L 98-107 L [facility] Creatinine [Mass/volume] in Serum or Plasma 1.00 mg/dL 0.50-0.90 H [facility] Glucose [Mass/volume] in Serum or Plasma 218 mg/dL 70-140 H [facility] Potassium [Moles/volume] in Serum or Plasma 3.5 mmol/L 3.4-5.1 [facility] Sodium [Moles/volume] in Serum or Plasma 139 mmol/L 136-145 [facility] Urea nitrogen [Mass/volume] in Serum or Plasma 19 mg/dL 8-23 [facility] Anion gap 3 in Serum or Plasma 16 mmol/L 8-15 H [facility] Osmolality of Serum or Plasma by calculation 297 mosm/kg 275-300 [facility] Creatinine/Urea nitrogen [Mass Ratio] in Serum or Plasma 19 [facility] Calcium [Mass/volume] in Serum or Plasma 9.6 mg/dL 8.8-10.2 [facility] Glomerular filtration rate/1.73 sq M pre dicted among non-blacks [Volume Rate/Area] in Serum or Plasma by Creatinine-based formula (MDRD) 55 mL/min/1.73m2 >60 L [facility] Glomerular filtration rate/1.73 sq M pre dicted among blacks [Volume Rate/Area] in Serum or Plasma by Creatinine-based formula (MDRD) 64 mL/min/1.73m2 >60 [facility] ID Date Data Source [id number] 04/15/2019 08:36:04 PM [facility] Name Value Range Interpretation Code Description Data Nel rce(s) Supporting Document(s) Leukocytes [#/volume] in Blood by Automated count 7.6 10*3/uL 4-10 [facility] Erythrocytes [#/volume] in Blood by Automated count 4.50 10*6/uL 4.1- 5.3 [facility] Hemoglobin [Mass/volume] in Blood 14.2 g/dL 11.5-15.5 [facility] Hematocrit [Volume Fraction] of Blood by Automated count 42.6 % 3 6-45 [facility] Erythrocyte mean corpuscular volume [Entitic volume] by Auto mated count 94.6 fL 80-96 [facility] Erythrocyte mean corpuscular hemoglobin [Entitic mass] by Automated count 31.6 pg 27-33 [facility] Erythrocyte mean corpuscular hemoglobin concentration [Mass/volume] by Automated count 33.4 g/[facility].0-[facility] distribution width [Ratio] by Automated count 17.4 % 11.5-14.5 H [facility] Platelets [#/volume] in Blood by Automated count 133 10*3/uL 150-400 L [facility] Confirmed ID Date Data Source [id number] 04/15/2019 05:23:09 PM EDT [facility] Name Value Range Interpretation Code Description Data Nel rce(s) Supporting Document(s) ABO and Rh group [Type] in Blood [facility] Blood group antibody screen [Presence] in Serum or Plasma [facility] Blood bank comment [facility] ID Date Data Source [id number] 03/19/2019 08:34:12 AM EST [facility] Name Value Range Interpretation Code Description Data Nel rce(s) Supporting Document(s) Progress Note [facility] USDUNx0pMkRVOgBv60/ROZgfDKWcu5VfXBupFBj0IYfxCILsI6RmCFZ0xF4xEXJ2GQgCYrFsRqKuZhQv lbm [file] FzNZ0QFq6EQcC0MQF6pUJzMq0BOfO1DMFRKcErGF5QEDd= ID Date Data Source [id number] 03/17/2019 05:53:03 PM [facility] Name Value Range Interpretation Code Description Data Nel rce(s) Supporting Document(s) Progress Note [facility] HBGYPm1wUcTFWaFw51/WSWtoBVUiv1DiLRvgCWn1FHbzCMJmM9FgFPB4oK3vTOW7VBrPKoCmThAaKfJv lbm [file] DrOZfuJfVrWQ2HLl4EEaU7FSO7zJFcEf5INoP4EdQBAsBpWI6MGYn= ID Date Data Source [id number] 03/12/2019 02:38:21 PM EST [facility] Name Value Range Interpretation Code Description Data Nel rce(s) Supporting Document(s) Progress Note [facility] MERJFe6aIwDBJxGg11/ESZbwONEpy5EoNBzyBOj0JPisQPBdR3GtPDT9pO4eQHX0BIyVWqWwMzOhMsK9 lbm DkLlvMWiVuRQKjZqfQGhVePJhxZxxklVZrDG0HtIE8RERuN97mUOWnJJXnB6FtDFYhKGr+Gx4HXYHacK IkLV7TOpyR2Ehll2gSWe0+QP/GIkATPBmvaxtdhsiVIFEyHPXjA0ZKBSe0zFEiyVmIgyfcdd41+SrpGa +xftRMg55cGPkG5j63MVP7oNpX2+fEBPe8e3NQ3Un5 MdRSjBfim3+DaVKc38S6W4pvGAGnbBrrSmHG9M4j0UldyidZRWpK5V70LBGP2OeJ5jjZfXKtoFqEb+yF aYxr8QoV54RFb1hDK7WN1g+0vHn+XIz+S61SuN7TZ0LoxFDUqe/caFHfXictNV8LhaYZj8ZhOhK6wic7 25aJqfOREW5zN+/KhK7Q74Lm4SQHecgiih7uI2wUNq JQvZBe7E7mT8dLeKUof/zHuejFnQZmFNXsXKwSDplD50zGBz3Yy8yPpo+RGBdhd1pbShcHX7wCIX0apt QlWPkIK6fOSUkkCJDc+hKtg3STydB1q5Ht7HgKcb7HgmyC9ipZ65FM1rHVfGOo/H3th5m6aDiebTDfsh frsi2Lpjeruh8n++FWTr+aTPJkZbE+W/byk1lLYqL7 f9vQUYO4+GjmGfk00Gd0v41+iI13Fny/Hu4QcKhdH3YSnQf7EJddOwMoNz62WZj+v1PQG73Pn3qejWrx Ijmy9e+K2jMrxDf+b1fRuqDaVpEg7OEDqrLm4ZTerkTiiaXhLQm0UZIJqLHtWF5v0PDX25nXd5OkJFIe Gisella+yZZuS7kpFsdT304317n8QZB3Fz77qLKU83Uece [file] MJ6iNUm+El4Cm9BzdvR0jySuHAuaMPT5XD9NLTAHI1CBCc== Procedure Social History Code Duration Value Status Description Data Source(s ) Alcohol intake 05/05/2019 12:00:00 AM EDT Ex-drinker (finding) comp leted Ex- drinker (finding) [facility] Tobacco use and exposure 05/05/2019 12:00:00 AM EDT Never used co mpleted Never used [facility] Smoking 05/05/2019 12:00:00 AM EDT Never smoker completed Never s [facility] Alcohol intake 04/18/2019 12:00:00 AM EDT Ex-drinker (finding) comp leted Ex- drinker (finding) [facility] Smoking 04/18/2019 12:00:00 AM EDT Never smoker completed Never [facility] Alcohol intake 04/15/2019 12:00:00 AM EDT Ex-drinker (finding) comp leted Ex- drinker (finding) [facility] Smoking 04/15/2019 12:00:00 AM EDT Never smoker completed Never s [facility] Alcohol intake 03/24/2019 12:00:00 AM EST Ex-drinker (finding) comp leted Ex- drinker (finding) [facility] Smoking 03/24/2019 12:00:00 AM EST Never smoker completed Never s [facility] Alcohol intake 03/17/2019 12:00:00 AM EST Ex-drinker (finding) comp leted Ex- drinker (finding) [facility] Smoking 03/17/2019 12:00:00 AM EST Never smoker completed Never s [facility] Vital Signs ID Date Data Source UNK Name Value Range Interpretation Code Description Data Source(s) Systolic blood pressure 132 mm[Hg] 132 mm[Hg] M [facility] ([facility]) Body weight 133.[address] [facility] ([facility]) Body mass index (BMI) [Ratio] 50.5 kg/m2 50.5 k g/m2 [facility] ([facility]) Body weight 294.00 [lb_av] 294.00 [lb_av] [facility] Body height 64 [in_i] 64 [in_i] [facility] ([facility]) 5'4" Diastolic blood pressure 68 mm[Hg] 68 mm[Hg] [facility] ([facility]) ID Date Data Source [id number] 05/05/2019 12:45:02 PM T [facility] Name Value Range Interpretation Code Description Data Source(s) WEIGHT RECORDED 291.6 lb 291.6 lb [facility] ID Date Data Source [id number] 04/24/2019 07:36:10 AM [facility] Name Value Range Interpretation Code Description Data Source(s) WEIGHT RECORDED 302 lb 302 lb [facility] Body height [facility] Date Data Source [id number] 04/16/2019 01:33:15 PM EDT [facility] Name Value Range Interpretation Code Description Data Source(s) WEIGHT RECORDED 295.42 lb 295.42 lb [facility] Body height Measured 62.6 in 62.6 in [facility] ID Date Data Source [id number] 03/19/2019 08:34:12 AM EST [facility] Name Value Range Interpretation Code Description Data Source(s) WEIGHT RECORDED 289 lb 289 lb [facility] Body height Measured 62 in 62 in [facility] Patient Treatment Plan of Care Planned Activity Planned Date Details Description Data Source (s) Test Strips - 08/13/2019 12:00:00 AM EDT eCW1 ([facility]) Glucometer 08/13/2019 12:00:00 AM EDT e CW1 ([facility]) Test Strips - 08/13/2019 12:00:00 AM EDT eCW1 ([facility]) Lancets Misc. - 08/13/2019 12:00:00 AM EDT eCW1 ([facility]) Glucometer 08/13/2019 12:00:00 AM EDT e CW1 ([facility]) Test Strips - 08/13/2019 12:00:00 AM EDT eCW1 ([facility]) Lancets Misc. - 08/13/2019 12:00:00 AM EDT eCW1 ([facility]) Lancets Misc. - 08/13/2019 12:00:00 AM EDT eCW1 ([facility]) Glucometer 08/13/2019 12:00:00 AM EDT e CW1 ([facility]) Test Strips - 08/13/2019 12:00:00 AM EDT eCW1 ([facility]) Lancets Misc. - 08/13/2019 12:00:00 AM EDT eCW1 ([facility]) Glucometer 08/13/2019 12:00:00 AM EDT e CW1 ([facility]) cinacalcet 30 MG Oral Tablet 04/21/2019 09:00:00 AM [facility] Oxycodone Hydrochloride 5 MG Oral Tablet [facility]XICODONE[facility] immediate release tablet 2.5 mg 04/18/2019 03:46:[address] [facility] ondansetron (ZOFRAN) injection 4 mg 04/18/2019 03:46:33 PM EDT [facility] fentaNYL (SUBLIMAZE) (PF) injection 25 mcg 04/18/2019 03:46:33 PM E DT [facility] dextrose 50 % IV solution 25 mL 04/18/2019 03:37:38 PM T [facility] Glucagon 1 MG Injection 04/18/2019 03:37:38 PM [facility] Glucose 0.4 MG/MG Oral Gel 04/18/2019 03:37:38 PM [facility]
[2020-03-11 15:08] LABS: RSV AMPLIFICATION NEGATIVE (NEGATIVE)
[2020-03-11 16:00] VITALS: BP 116/57
[2020-03-11] MEDS: NS 1,000 ML IV SCH (16:36)
[2020-03-11] MEDS: HumaLOG INSULIN (NovoLOG) PER UNIT SC SCH ×2 (18:07→20:48)
[2020-03-11] MEDS: VITAMIN D 1,000 INTERNATIONAL UNITS TABLET PO SCH (20:24)
[2020-03-11] MEDS: MONTELUKAST 10 MG TAB PO SCH (20:24)
[2020-03-11 22:00] VITALS: BP 114/57
[2020-03-11 22:04] LABS: CLOSTRIDIUM DIFFICILE PCR NEGATIVE (NEGATIVE)
[2020-03-12] MEDS: NS 1,000 ML IV SCH ×3 (00:15→17:13)
[2020-03-12] MEDS ORDERED: LOPERAMIDE 2 MG CAPLET PO ONE ×2 (03:45→11:15)
[2020-03-12 06:00] VITALS: BP 134/66
[2020-03-12 06:59] LABS: HEMATOCRIT 41.6 % (36.0-47.0); HEMOGLOBIN 13.8 g/dl (12.0-15.5); MEAN CORPUSCULAR HEMOGLOBIN 30.5 pg (27.0-33.0); MEAN CORPUSCULAR HGB CONC 33.2 g/dl (32.0-36.5); MEAN CORPUSCULAR VOLUME 91.8 fl (80.0-96.0); PLATELET COUNT, AUTOMATED 185 10^3/uL (150-450); RED BLOOD COUNT 4.53 10^6/uL (4.00-5.40); WHITE BLOOD COUNT 18.6 10^3/uL (4.0-10.0)
[2020-03-12 07:27] LABS: ALBUMIN 2.4 GM/DL (3.2-5.2); BILIRUBIN,TOTAL 0.4 MG/DL (0.2-1.0); CALCIUM LEVEL 9.2 MG/DL (8.8-10.2); CREATININE FOR GFR 1.43 MG/DL (0.55-1.30); GLOMERULAR FILTRATION RATE 38.3 (>39); MAGNESIUM LEVEL 2.3 MG/DL (1.8-2.4); POTASSIUM SERUM 3.9 MEQ/L (3.5-5.1); TOTAL PROTEIN 4.8 GM/DL (6.4-8.2)
[2020-03-12] MEDS: HumaLOG INSULIN (NovoLOG) PER UNIT SC SCH ×4 (07:30→21:00)
[2020-03-12] MEDS: LEVEMIR (INSULIN DETEMIR) 1 UNITS/0.01ML SC SCH ×2 (09:00→10:51)
[2020-03-12] MEDS ORDERED: ASPIRIN 81 MG ENTERIC TAB PO SCH (09:00)
[2020-03-12] MEDS ORDERED: ENOXAPARIN 40MG/0.4ML SYRINGE (J1650 PER 10MG) SC SCH (09:00)
[2020-03-12] MEDS: VITAMIN D 1,000 INTERNATIONAL UNITS TABLET PO SCH ×2 (10:52→22:06)
[2020-03-12] MEDS: allopurinoL 300 MG TAB PO SCH (10:52)
[2020-03-12] MEDS: atenoloL 25 MG TAB PO SCH (10:54)
[2020-03-12] MEDS: ENOXAPARIN 30MG/0.3ML SYRINGE (J1650 PER 10MG) SC SCH (10:55)
[2020-03-12] MEDS ORDERED: ACETAMINOPHEN TAB 650MG DOSE (2X325MG) PO PRN (11:00)
[2020-03-12] MEDS: ASPIRIN 81 MG CHEW TABLET PO SCH (11:05)
--- NOTE | 2020-03-12 11:06 | IPNPDOC ---
Text Note Date of Service The patient was seen on 03/12/20. NOTE Subjective: Patient seen and examined at bedside. No acute overnight events reported. She still is having diarrhea, no improvement since admission. States even with drinking water it instigates diarrhea. No other medical complaints. Objective: General: NAD, lying comfortably in bed HEENT: NC/AT, EOMI Lungs: CTA B/L Heart: +S1S2, RRR Abd: soft, obese, NT, +BS Ext: trace edema A/P: 74F with PMHx including metastatic colon CA currently on chemo s/p resection. One week ago she had minimal diarrhea, but received chemo last week, which worsened her diarrhea. She followed up with oncology yesterday, and received some IV fluids. She returned for follow up today, and was found to be significantly orthostatic. In the ED she again was found to be orthostatic. Stool studies were sent by oncology, and additional CDiff sent by the ED. She has a notable leukocytosis, however she did receive neupogen on 03/04/20. She voices no other medical complaints. She denies chest pain, abdominal pain, N/V. 74 year old female with PMHx including colon CA/resection currently receiving ch emo, admitted for diarrhea, dehydration, CARMELO, orthostatic hypotension. #diarrhea - stool studies negative for CDiff - discussed with oncology - will start imodium and lomotil - IV fluids - follow and replete electrolytes as needed #CARMELO - improving - pre-renal - IV fluids for now #leukocytosis - improving - discussed with oncology - secondary to neulasta - possible secondary to neupogen - no obvious signs/symptoms of infection - continue to follow clinically #orthostasis - IV fluids - PT/OT #DVT prophylaxis VS,Fishbone, I+O VS, Fishbone, I+O Laboratory Tests 03/11/20 11:33 03/12/20 06:18 Vital Signs Date Time Temp Pulse Resp B/P (MAP) Pulse Ox O2 Delivery O2 Flow Rate FiO2 03/12/20 10:54 67 138/70 03/12/20 06:00 98.0 17 99 Room Air I&O- Last 24 Hours up to 6 AM 03/12/20 06:00 Intake Total 5120 ml Output Total 975 ml Balance 4145 ml CAITLIN WASHINGTON MD Mar 12, 2020 11:06
[2020-03-12] MEDS ORDERED: LOMOTIL 2.5MG/0.025MG TABLET PO PRN (11:15)
[2020-03-12 14:00] VITALS: BP 115/71
[2020-03-12 22:00] VITALS: BP 125/61
[2020-03-12] MEDS: MONTELUKAST 10 MG TAB PO SCH (22:06)
[2020-03-13] MEDS: NS 1,000 ML IV SCH ×2 (01:22→08:10)
[2020-03-13 06:00] VITALS: BP 148/78
[2020-03-13] MEDS ORDERED: LOPERAMIDE 2 MG CAPLET PO PRN (07:30)
[2020-03-13] MEDS: HumaLOG INSULIN (NovoLOG) PER UNIT SC SCH (07:30)
[2020-03-13 08:53] LABS: HEMATOCRIT 40.7 % (36.0-47.0); HEMOGLOBIN 13.4 g/dl (12.0-15.5); MEAN CORPUSCULAR HEMOGLOBIN 30.5 pg (27.0-33.0); MEAN CORPUSCULAR HGB CONC 32.9 g/dl (32.0-36.5); MEAN CORPUSCULAR VOLUME 92.7 fl (80.0-96.0); PLATELET COUNT, AUTOMATED 160 10^3/uL (150-450); RED BLOOD COUNT 4.39 10^6/uL (4.00-5.40)
[2020-03-13] MEDS: LEVEMIR (INSULIN DETEMIR) 1 UNITS/0.01ML SC SCH (09:00)
[2020-03-13 09:20] LABS: ALBUMIN 2.4 GM/DL (3.2-5.2); BILIRUBIN,TOTAL 0.3 MG/DL (0.2-1.0); CREATININE FOR GFR 1.06 MG/DL (0.55-1.30); GLOMERULAR FILTRATION RATE 54.1 (>39); POTASSIUM SERUM 3.7 MEQ/L (3.5-5.1); TOTAL PROTEIN 4.9 GM/DL (6.4-8.2)
[2020-03-13 09:36] LABS: EOSINOPHILS 1 % (0-3); LYMPHOCYTES 8 % (16-44); MONOCYTES 4 % (0-5); NEUTROPHILS 84 % (28-66); PLATELET ESTIMATE NORMAL (NORMAL)
[2020-03-13 09:37] LABS: ANISOCYTOSIS 1+; TOXIC GRANULATION 1+
[2020-03-13] MEDS: ASPIRIN 81 MG CHEW TABLET PO SCH (09:37)
[2020-03-13] MEDS: VITAMIN D 1,000 INTERNATIONAL UNITS TABLET PO SCH (09:37)
[2020-03-13] MEDS: allopurinoL 300 MG TAB PO SCH (09:37)
[2020-03-13 09:38] VITALS: BP 144/76
[2020-03-13] MEDS: atenoloL 25 MG TAB PO SCH (09:38)
[2020-03-13] MEDS: ENOXAPARIN 30MG/0.3ML SYRINGE (J1650 PER 10MG) SC SCH (09:38)
[2020-03-13] MEDS ORDERED: SODIUM CHLORIDE 0.9% INJ 10 ML SYR IV PRN (10:45)
[2020-03-14] MEDS ORDERED: SODIUM CHLORIDE 0.9% INJ 10 ML SYR IV SCH (09:00)
[2020-03-29] MEDS ORDERED: OXYC-517 PO (14:04)
[2020-03-29] MEDS ORDERED: AMBI5TAB PO (14:04)
--- NOTE | 2020-04-01 09:40 | DS.PDOC ---
Discharge Summary General Date of Admission Mar 11, 2020 at 14:19 Date of Discharge 03/13/20 Discharge Summary PROCEDURES PERFORMED DURING STAY: [None]. DISCHARGE DIAGNOSES: 1. dehydration 2. KULDIP/pre-renal 3. metastatic colon CA on chemotherapy 4. orthostatic hypotension COMPLICATIONS/CHIEF COMPLAINT: Diarrhea/Kuldip/Dehydration. HPI/Hospital Course: 74F with PMHx including metastatic colon CA currently on chemo s/p resection. One week ago she had minimal diarrhea, but received chemo last week, which worsened her diarrhea. She followed up with oncology and received some IV fluids. She returned for follow up to the ED and was found to be significantly orthostatic. Stool studies were sent by oncology, and additional CDiff sent by the ED. She had a notable leukocytosis, however she did receive neupogen on 03/04/20. She voices no other medical complaints. She denies chest pain, abdominal pain, N/V. 74 year old female with PMHx including colon CA/resection currently receiving chemo, admitted for diarrhea, dehydration, KULDIP, orthostatic hypotension. #diarrhea - stool studies negative for CDiff - discussed with oncology - assistance appreciated - will start imodium and lomotil - responded well to IV fluids #KULDIP - resolved - pre-renal - responded well to IV fluids #leukocytosis - significant improvement - essentially resolved - discussed with oncology - secondary to neulasta - outpatient follow up - no obvious signs/symptoms of infection #orthostasis - responded to IV fluids - PT/OT DISCHARGE MEDICATIONS: Please see below. ALLERGIES: Please see below. PHYSICAL EXAMINATION ON DISCHARGE: VITAL SIGNS: Please see below. General: NAD, lying comfortably in bed HEENT: NC/AT, EOMI Lungs: CTA B/L Heart: +S1S2, RRR Abd: soft, obese, NT, +BS Ext: trace edema LABORATORY DATA: Please see below. ACTIVITY: [As tolerated]. DISPOSITION: 01 Home, Self-Care. DISCHARGE INSTRUCTIONS: 1. Follow up PCP in 3-5 days. 2. Follow up with oncology as scheduled. DISCHARGE CONDITION: [Stable]. TIME SPENT ON DISCHARGE: 35 minutes. Discharge Medications Scheduled Allopurinol (Zyloprim) 300 Mg Tablet, 300 MG PO DAILY, (Reported) Aspirin (Aspirin EC) 81 Mg Tablet.dr, 81 MG PO DAILY, (Reported) Atenolol (Atenolol) 25 Mg Tablet, 25 MG PO DAILY, (Reported) Cholecalciferol (Vitamin D3) (Vitamin D3) 1,000 Unit Tablet, 5,000 UNITS PO BID, (Reported) Cinacalcet (Sensipar) 30 Mg Tablet, 30 MG PO 1XWK, (Reported) Cyanocobalamin (Vitamin B-12) (B-12) 1,000 Mcg Tablet, 1,000 MCG PO Q2D, (Reported) Dexamethasone (Dexamethasone) 4 Mg Tablet, 4 TAB PO DAILY Take one tab po daily x2 days post chemo Insulin Glargine,Hum.rec.anlog (Toujeo Solostar) 300 Unit/1 Ml Insuln.pen, 110 UNIT SC DAILY, (Reported) Montelukast Sodium (Montelukast Sodium) 10 Mg Tablet, 10 MG PO QHS, (Reported) Quinapril Hcl (Quinapril HCl) 40 Mg Tablet, 40 MG PO DAILY, (Reported) Torsemide (Torsemide) 20 Mg Tablet, 20 MG PO BID, (Reported) Scheduled PRN Acyclovir (Acyclovir) 200 Mg/5 Ml Oral.susp, 5 ML PO TID PRN for FLARE UP, (Reported) Diphenoxylate HCl/Atropine (Lomotil 2.5-0.025 mg Tablet) 1 Each Tablet, 1 TAB PO BIDP PRN for DIARRHEA Lorazepam (Lorazepam) 1 Mg Tablet, 1-2 TAB PO DAILYPRN PRN for ANXIETY Ondansetron HCl (Ondansetron HCl) 8 Mg Tablet, 8 MG PO Q12H PRN for NAUSEA TAKE ONE TABLET EVERY 6 HOURS NEEDED FOR NAUSEA. Oxycodone HCl (Oxycodone HCl) 5 Mg Tablet, 1 TAB PO BIDP PRN for pain Prochlorperazine Maleate (Prochlorperazine Maleate) 10 Mg Tablet, 10 MG PO Q6H PRN for NAUSEA OR VOMITING Zolpidem Tartrate (Ambien) 5 Mg Tablet, 1 TAB PO QPMP PRN for sleep Allergies Coded Allergies: promethazine (Verified Allergy, Intermediate, hives, 09/10/18) acetaminophen (Verified Adverse Reaction, Unknown, DECREASED BLOOD PRESSURE, 11/18/19) hydrocodone (Verified Adverse Reaction, Unknown, DECREASED BLOOD PRESSURE, 11/18/19) CAITLIN WASHINGTON MD Apr 01, 2020 09:40
== END 2020-03-13 11:10 | disposition home or self-care (01) | DRG 683 ==
LOC: M ED 11:08 → M ED INP 14:19 → M MSPAV 16:12
PROVIDERS: ADMIT Internal Medicine; ATTEND Internal Medicine
DX: N17.9 Acute kidney failure, unspecified (principal); C18.9 Malignant neoplasm of colon, unspecified; C78.00 Secondary malignant neoplasm of unspecified lung; Z68.41 Body mass index [BMI] 40.0-44.9, adult; E11.22 Type 2 diabetes mellitus with diabetic chronic kidney disease; I12.9 Hypertensive chronic kidney disease with stage 1 through stage 4 chronic kidney disease, or unspecified chronic kidney disease; E78.5 Hyperlipidemia, unspecified; H40.9 Unspecified glaucoma; M10.9 Gout, unspecified; E86.0 Dehydration; N18.9 Chronic kidney disease, unspecified; E66.01 Morbid (severe) obesity due to excess calories; H81.09 Meniere's disease, unspecified ear; I95.1 Orthostatic hypotension; R19.7 Diarrhea, unspecified; Z79.4 Long term (current) use of insulin; Z79.82 Long term (current) use of aspirin; Z79.899 Other long term (current) drug therapy; Z88.5 Allergy status to narcotic agent; Z90.49 Acquired absence of other specified parts of digestive tract; Z88.6 Allergy status to analgesic agent; Z88.8 Allergy status to other drugs, medicaments and biological substances

== ENCOUNTER → 2020-03-29 | Outpatient (CLI) | payer MEDICARE, OTHER ==
[~2020-03-29] MED LIST changes: +ACYC200S4 PO; +AMBI5TAB PO; +OXYC-517 PO
--- NOTE | 2020-03-29 12:19 | REP ---
INDICATION: PAIN, SWELLING. COMPARISON: None TECHNIQUE: Multiple ultrasonographic images of the deep venous structures of the left thigh were obtained from the level of the common femoral vein to the popliteal vein in the longitudinal and transverse scan planes along with Doppler interrogation and color flow Doppler imaging. FINDINGS: There is no abnormal echogenic material seen within any of the visualized deep venous structures that would suggest acute thrombosis. Coaptation is unremarkable throughout. Doppler interrogation shows an expected response to respiratory variability and augmentation. The color flow Doppler images show what appears to be a normal vascular pattern throughout. IMPRESSION: There is no ultrasonographic evidence of deep venous thrombosis involving any of the visualized deep venous structures of the left thigh as described above. Accredited by the [employer] in Vascular Peripheral Ultrasound. <Electronically signed by Karlos Guerin > 03/29/20 [id number]
== END ==
LOC: M RAD 11:43
PROVIDERS: ATTEND Internal Medicine Medical Oncology
DX: M79.605 Pain in left leg (principal); R22.42 Localized swelling, mass and lump, left lower limb

== ENCOUNTER → 2020-04-01 | Outpatient (CLI) | payer MEDICARE, OTHER ==
--- NOTE | 2020-04-01 14:51 | REP ---
INDICATION: LEFT BUTTOCK AND THIGH PAIN. COMPARISON: None. TECHNIQUE: AP and frogleg views of the left hip are provided. FINDINGS: Left femoral head is smooth and rounded hip joint space is preserved. Periarticular soft tissues are unremarkable. No fracture is seen. No bony erosive changes seen. IMPRESSION: No acute bony abnormality. <Electronically signed by Onesimo Li > 04/01/20 [id number]
--- NOTE | 2020-04-01 14:52 | REP ---
INDICATION: LEFT BUTTOCK AND THIGH PAIN. COMPARISON: None. TECHNIQUE: AP and lateral views. FINDINGS: AP and latter views of the oral left mid and distal femur demonstrate normal bones, joints, and soft tissues. No fracture or subluxation is seen. There is osteoarthritic change in the medial and patellofemoral compartments at the knee.. IMPRESSION: Osteoarthritis at the knee. No acute bony abnormality.. <Electronically signed by Onesimo Li > 04/01/20 [id number]
== END ==
LOC: M RAD 13:09
PROVIDERS: ATTEND Internal Medicine Medical Oncology
DX: M17.12 Unilateral primary osteoarthritis, left knee (principal); M79.605 Pain in left leg

== ENCOUNTER → 2020-06-01 | Outpatient (REF) | payer MEDICARE, OTHER ==
[~2020-06-01] MED LIST changes: +COVI30VI IM; +MULTIVITAMINS PO
[2020-06-01 20:57] LABS: HEMOGLOBIN A1c 8.4 %
== END ==
LOC: M SFHCCLAY 09:31
PROVIDERS: ATTEND Nurse Practitioner Family
DX: C18.9 Malignant neoplasm of colon, unspecified (principal); E11.29 Type 2 diabetes mellitus with other diabetic kidney complication

== ENCOUNTER → 2020-06-23 | Outpatient (CLI) | payer MEDICARE, OTHER ==
[~2020-06-23] MED LIST changes: +LIDO1CRE42 TOP; -LIDO2.5C15 TOP; +MULTLIQ7 PO
--- NOTE | 2020-06-23 12:03 | REPMRS ---
Patient History The patient states she had a clinical breast exam 06-16-2020. Patient has history of other cancer at age 74, has history of colorectal cancer at age 73, and had previous chemotherapy at age 73. Family history of breast cancer under age 50 in paternal aunt. Benign radio exam breast specimen of the left breast, July 14, 2014. Benign stereotatic loc for ea lesion of the left breast, July 14, 2014. No Hormone Replacement Therapy Tomosynthesis is performed. Volpara breast density is b. Tyrer-zick lifetime risk of breast cancer 3.9%. Indicated problem(s): left breast pain. T- pt identified. Priors on [facility] pacs. Diagnostic mammogram for Left Breast Pain. Pain was sharp to start with and then was generalized and now is better. Since last time she was here pt has been diagnosed with Colon cancer and lung cancer. PT has undergone Chemo and radiation and is again undergoing radiation for possible metastasis to abdominal area. RKB Pt having pain in left breast for a while. Was sharp but got more generalized and now quite a bit better. Patient has signed MRS History Sheet. Diagnostic Bilateral Mammo: June 23, 2020 - Exam #: [id number] Bilateral CC and MLO view(s) were taken. Technologist: [facility] Prior study comparison: November 02, 2017, bilateral digital mammo screening bilat, performed at [facility]. October 17, 2016, bilateral digital mammo screening bilat, performed at [facility]. FINDINGS: There are scattered fibroglandular densities. There has been no change in the appearance of the mammogram from the prior studies. There is a mild amount of residual fibroglandular tissue which is fairly symmetric. There is no interval development of dominant mass, architectural distortion, or clustered microcalcification suggestive of malignancy. Assessment: BI-RADS/ACR category 1 mammogram. Negative Mammogram. Recommendation Routine screening mammogram in 1 year (for women over age 40). This mammogram was interpreted with the aid of an FDA-approved computer-aided dectection system. Electronically Signed By: Bradley Linton MD 06/23/20 [id number]
== END ==
LOC: M WHC 10:58
PROVIDERS: ATTEND Nurse Practitioner Women's Health
DX: R92.2 Inconclusive mammogram (principal); Z98.890 Other specified postprocedural states; N64.4 Mastodynia; Z80.3 Family history of malignant neoplasm of breast
CPT/HCPCS: 77066; G0279

== ENCOUNTER → 2020-07-12 | Outpatient (CLI) | payer MEDICARE, OTHER ==
--- NOTE | 2020-07-13 10:59 | REP ---
INDICATION: RESTAGING COLON CANCER C18.8. By history, the patient has had multiple chemotherapeutic regimens the latest 04/13/2020 patient underwent left hemipelvic core biopsy 02/11/2020 showing metastatic adenocarcinoma consistent with colonic primary. COMPARISON: Multiple latest 01/06/[address] chest abdomen pelvis 12/05/2019 TECHNIQUE: After the intravenous administration of 10.5 mCi of FDG 18 triplane whole-body PET-CT was performed from the skull base to the mid thigh. FINDINGS: Adjacent to and on the right side of the sigmoid colon there is a 2.1 cm sized nodule the appearance of which is unchanged compared to the prior CT of 12/05/2019, however, it is hypermetabolic with a maximal SUV value of 6.38. Once again, there is hypermetabolic activity seen throughout the sigmoid colon but this is unchanged. There is no significant change in the appearance of the osseous structures. Multifocal hypermetabolic regions are again seen in the axial skeleton but likely secondary to chemotherapeutic reactive change certainly, small metastatic foci could not be ruled out by this exam. No other areas of abnormal hypermetabolic activity are seen in the neck, chest, abdomen, or pelvis. IMPRESSION: Hypermetabolic regions, as described above, continued surveillance is recommended. <Electronically signed by Rafael Brown > 07/13/20 [id number]
== END ==
LOC: M PLARAD 09:49
PROVIDERS: ATTEND Internal Medicine Medical Oncology
DX: C18.8 Malignant neoplasm of overlapping sites of colon (principal)
CPT/HCPCS: 78815; A9552

== ENCOUNTER → 2020-08-26 | Outpatient (REF) | payer MEDICARE, OTHER ==
[2020-08-26 14:28] LABS: URINE TOTAL PROTEIN 29.1 MG/DL (0-12)
[2020-08-26 15:17] LABS: TOTAL PROTEIN 24 HOUR URINE 727.5 MG/24HR (50-150)
== END ==
LOC: M LAB REF 12:40
PROVIDERS: ATTEND Internal Medicine Medical Oncology
DX: N39.9 Disorder of urinary system, unspecified (principal)

== ENCOUNTER → 2020-09-06 | Outpatient (REF) | payer MEDICARE, OTHER ==
[~2020-09-06] MED LIST changes: +ALLO300T2 PO; +DIPH2.5T14 PO; +METO10TA2 PO; -MONT10TA10 PO; +MONT10TA97 PO; +ONDA-84 PO; -ONDA8TAB10 PO; +PROBCAP14 PO; -PROC10TA4 PO; +PROC10TA5 PO; +[UNRECOGNIZED DRUG - OTHER] PO; +[UNRECOGNIZED DRUG - OTHER] PO; +[UNRECOGNIZED DRUG - OTHER] PO; +aloe PO
[2020-09-06 17:37] LABS: BASO # 0.1 10^3/uL (0.0-0.2); BASO % 0.6 % (0.0-1.0); EOS # 0.3 10^3/uL (0.0-0.5); EOS % 3.7 % (0.0-3.0); HEMATOCRIT 41.7 % (36.0-47.0); HEMOGLOBIN 13.6 g/dl (12.0-15.5); LYMPH # 1.6 10^3/uL (1.5-5.0); LYMPH % 18.3 % (24.0-44.0); MEAN CORPUSCULAR HEMOGLOBIN 32.8 pg (27.0-33.0); MEAN CORPUSCULAR HGB CONC 32.6 g/dl (32.0-36.5); MEAN CORPUSCULAR VOLUME 100.5 fl (80.0-96.0); MONO # 0.9 10^3/uL (0.0-0.8); MONO % 10.3 % (2.0-8.0); NEUTROPHILS # 5.9 10^3/uL (1.5-8.5); NEUTROPHILS % 66.3 % (36.0-66.0); PLATELET COUNT, AUTOMATED 152 10^3/uL (150-450); RED BLOOD COUNT 4.15 10^6/uL (4.00-5.40); WHITE BLOOD COUNT 8.9 10^3/uL (4.0-10.0)
[2020-09-06 17:46] LABS: APPEARANCE, URINE HAZY (CLEAR); BACTERIA, URINE AUTO NEGATIVE (NEGATIVE); BILIRUBIN, URINE AUTO NEGATIVE (NEGATIVE); BLOOD, URINE BLOOD NEGATIVE (NEGATIVE); COLOR, URINE YELLOW (YELLOW); GLUCOSE, URINE (UA) AUTO 1+ mg/dL (NEGATIVE); KETONE, URINE AUTO NEGATIVE (NEGATIVE); LEUKOCYTE ESTERASE, URINE AUTO NEGATIVE (NEGATIVE); MUCUS, URINE SMALL (NEGATIVE); NITRITE, URINE AUTO NEGATIVE (NEGATIVE); PROTEIN, URINE AUTO 1+ mg/dL (NEGATIVE); RBC, URINE AUTO 2 /HPF (0-3); SPECIFIC GRAVITY URINE AUTO 1.008 (1.002-1.035); SQUAMOUS EPITHELIAL CELL UR AU 4 /HPF (0-6); UROBILINOGEN, URINE AUTO 0.2 mg/dL (0.0-2.0); WBC, URINE AUTO 1 /HPF (0-3)
[2020-09-06 19:44] LABS: ALBUMIN 3.2 GM/DL (3.2-5.2); ALT/SGPT 26 U/L (12-78); BILIRUBIN,TOTAL 0.6 MG/DL (0.2-1.0); BLOOD UREA NITROGEN 13 MG/DL (7-18); CALCIUM LEVEL 8.9 MG/DL (8.8-10.2); CARBON DIOXIDE LEVEL 30 MEQ/L (21-32); CHLORIDE LEVEL 102 MEQ/L (98-107); CREATININE FOR GFR 0.95 MG/DL (0.55-1.30); FERRITIN 136 NG/ML (8-252); GLOMERULAR FILTRATION RATE > 60.0 (>39); GLUCOSE, FASTING 321 MG/DL (70-100); MAGNESIUM LEVEL 1.7 MG/DL (1.8-2.4); POTASSIUM SERUM 3.9 MEQ/L (3.5-5.1); SODIUM LEVEL 139 MEQ/L (136-145)
== END ==
LOC: M LABDRAWC 15:48
PROVIDERS: ATTEND Internal Medicine Medical Oncology
DX: C18.9 Malignant neoplasm of colon, unspecified (principal)

== ENCOUNTER 2020-09-11 12:08 | Emergency (ER) | payer MEDICARE, OTHER ==
[~2020-09-11] VITALS: Ht 162.6 cm; Wt 131.8 kg
[~2020-09-11 12:08] MED LIST changes: -ALLO300T2 PO; -DIPH2.5T14 PO; -METO10TA2 PO; +MONT10TA10 PO; -MONT10TA97 PO; -ONDA-84 PO; +ONDA8TAB10 PO; -PROBCAP14 PO; +PROC10TA4 PO; -PROC10TA5 PO; -[UNRECOGNIZED DRUG - OTHER] PO; -[UNRECOGNIZED DRUG - OTHER] PO; -[UNRECOGNIZED DRUG - OTHER] PO; -aloe PO
[2020-09-11] MEDS ORDERED: DIPH2.5T14 PO (12:38)
[2020-09-11] MEDS ORDERED: METO10TA2 PO (12:40)
[2020-09-11 13:33] LABS: BASO # 0.1 10^3/uL (0.0-0.2); BASO % 0.6 % (0.0-1.0); EOS # 0.3 10^3/uL (0.0-0.5); EOS % 3.2 % (0.0-3.0); HEMATOCRIT 40.9 % (36.0-47.0); HEMOGLOBIN 13.7 g/dl (12.0-15.5); LYMPH # 1.8 10^3/uL (1.5-5.0); LYMPH % 21.2 % (24.0-44.0); MEAN CORPUSCULAR HEMOGLOBIN 32.2 pg (27.0-33.0); MEAN CORPUSCULAR HGB CONC 33.5 g/dl (32.0-36.5); MONO # 0.2 10^3/uL (0.0-0.8); MONO % 2.2 % (2.0-8.0); NEUTROPHILS # 6.1 10^3/uL (1.5-8.5); NEUTROPHILS % 72.6 % (36.0-66.0); PLATELET COUNT, AUTOMATED 171 10^3/uL (150-450); RED BLOOD COUNT 4.26 10^6/uL (4.00-5.40); WHITE BLOOD COUNT 8.4 10^3/uL (4.0-10.0)
--- NOTE | 2020-09-11 13:43 | REP ---
INDICATION: shortness of breath. COMPARISON: PA chest dated 12/12/[address] dated 12/05/2019. TECHNIQUE: Portable AP chest with the patient sitting. FINDINGS: The lung garsia are clear. Cardiac size is normal. The maryam, mediastinum and skeletal structures are unremarkable. A right IJ central venous Jwxwfj-L-Tlxm catheter is noted with the tip in the superior vena cava in satisfactory position, unchanged. IMPRESSION: There are no acute cardiopulmonary findings. <Electronically signed by Bradley Pathak > 09/11/20 [id number]
[2020-09-11 14:02] LABS: ALBUMIN 3.2 GM/DL (3.2-5.2); BILIRUBIN,TOTAL 0.9 MG/DL (0.2-1.0); CREATININE FOR GFR 1.03 MG/DL (0.55-1.30); GLOMERULAR FILTRATION RATE 55.8 (>39); MAGNESIUM LEVEL 1.8 MG/DL (1.8-2.4); POTASSIUM SERUM 3.8 MEQ/L (3.5-5.1); TOTAL PROTEIN 6.1 GM/DL (6.4-8.2)
[2020-09-11 15:01] VITALS: BP 148/74
--- NOTE | 2020-09-12 20:17 | ECGEPIP ---
[facility] - ED Test Date: 2020-09-11 Pat Name: JAZMÍN PEREZ Department: Room: - Gender: Female [employer]: LR : 1945 Requested By: KIMBERLY Swift Order Number: [id number] Reading MD: Enedina Judd Measurements Intervals [place] Rate: 63 P: 49 NH: 214 QRS: -39 QRSD: 92 T: 2 QT: 430 QTc: 440 Interpretive Statements Sinus rhythm with 1st degree AV block Left axis deviation prwp NSTTW abnormalities No prior Electronically Signed on 09-12-2020 20:17:34 EDT by Enedina Judd
== END 2020-09-11 15:15 | disposition home or self-care (01) ==
LOC: M ED 12:08
DX: R06.02 Shortness of breath (principal); T45.1X5A Adverse effect of antineoplastic and immunosuppressive drugs, initial encounter; Y92.89 Other specified places as the place of occurrence of the external cause; I10 Essential (primary) hypertension; Z85.038 Personal history of other malignant neoplasm of large intestine; Z79.899 Other long term (current) drug therapy; Z79.82 Long term (current) use of aspirin; Z79.4 Long term (current) use of insulin; Z88.5 Allergy status to narcotic agent; Z88.8 Allergy status to other drugs, medicaments and biological substances

== ENCOUNTER → 2020-09-20 | Outpatient (REF) | payer MEDICARE, OTHER ==
[~2020-09-20] MED LIST changes: +ALLO300T2 PO; +DIPH2.5T14 PO; +METO10TA2 PO
[2020-09-20 16:39] LABS: BASO % 0.3 % (0.0-1.0); EOS # 0.1 10^3/uL (0.0-0.5); EOS % 1.6 % (0.0-3.0); HEMATOCRIT 40.8 % (36.0-47.0); HEMOGLOBIN 13.4 g/dl (12.0-15.5); LYMPH # 2.1 10^3/uL (1.5-5.0); LYMPH % 23.3 % (24.0-44.0); MEAN CORPUSCULAR HEMOGLOBIN 32.2 pg (27.0-33.0); MEAN CORPUSCULAR HGB CONC 32.8 g/dl (32.0-36.5); MEAN CORPUSCULAR VOLUME 98.1 fl (80.0-96.0); MONO # 1.3 10^3/uL (0.0-0.8); MONO % 13.9 % (2.0-8.0); NEUTROPHILS # 5.5 10^3/uL (1.5-8.5); NEUTROPHILS % 60.5 % (36.0-66.0); PLATELET COUNT, AUTOMATED 212 10^3/uL (150-450); RED BLOOD COUNT 4.16 10^6/uL (4.00-5.40)
[2020-09-20 16:46] LABS: APPEARANCE, URINE HAZY (CLEAR); BACTERIA, URINE AUTO NEGATIVE (NEGATIVE); BILIRUBIN, URINE AUTO NEGATIVE (NEGATIVE); BLOOD, URINE BLOOD NEGATIVE (NEGATIVE); COLOR, URINE YELLOW (YELLOW); GLUCOSE, URINE (UA) AUTO NEGATIVE (NEGATIVE); KETONE, URINE AUTO NEGATIVE (NEGATIVE); LEUKOCYTE ESTERASE, URINE AUTO NEGATIVE (NEGATIVE); MUCUS, URINE SMALL (NEGATIVE); NITRITE, URINE AUTO NEGATIVE (NEGATIVE); PROTEIN, URINE AUTO NEGATIVE (NEGATIVE); RBC, URINE AUTO 0 /HPF (0-3); SQUAMOUS EPITHELIAL CELL UR AU 1 /HPF (0-6); UROBILINOGEN, URINE AUTO 0.2 mg/dL (0.0-2.0); WBC, URINE AUTO 1 /HPF (0-3)
[2020-09-20 17:26] LABS: ALBUMIN 3.1 GM/DL (3.2-5.2); BILIRUBIN,TOTAL 0.4 MG/DL (0.2-1.0); CALCIUM LEVEL 8.5 MG/DL (8.8-10.2); CREATININE FOR GFR 1.19 MG/DL (0.55-1.30); GLOMERULAR FILTRATION RATE 47.2 (>39); MAGNESIUM LEVEL 1.8 MG/DL (1.8-2.4); POTASSIUM SERUM 4.2 MEQ/L (3.5-5.1); TOTAL PROTEIN 5.9 GM/DL (6.4-8.2)
== END ==
LOC: M LABDRAWC 15:42
PROVIDERS: ATTEND Internal Medicine Medical Oncology
DX: C18.9 Malignant neoplasm of colon, unspecified (principal)

== ENCOUNTER → 2020-09-21 | Outpatient (CLI) | payer MEDICARE, OTHER ==
--- NOTE | 2020-09-21 11:54 | REP ---
INDICATION: ADB PAIN. COMPARISON: None. FINDINGS: There are a few gas-filled mildly dilated small bowel loops in the right and mid abdomen. Limited supine exam shows no air-fluid levels or evidence of free intraperitoneal air. IMPRESSION: Nonspecific. <Electronically signed by Rafael Brown > 09/21/20 [id number]
== END ==
LOC: M RAD 11:15
PROVIDERS: ATTEND Internal Medicine Medical Oncology
DX: R10.9 Unspecified abdominal pain (principal)

== ENCOUNTER → 2020-10-22 | Outpatient (REF) | payer MEDICARE, OTHER ==
[~2020-10-22] MED LIST changes: -MONT10TA10 PO; +MONT10TA97 PO; +ONDA-84 PO; -ONDA8TAB10 PO; +PROBCAP14 PO; -PROC10TA4 PO; +PROC10TA5 PO; +[UNRECOGNIZED DRUG - OTHER] PO; +[UNRECOGNIZED DRUG - OTHER] PO; +[UNRECOGNIZED DRUG - OTHER] PO; +aloe PO
== END ==
LOC: M LAB REF 17:07
PROVIDERS: ATTEND Nurse Practitioner Family
DX: E83.42 Hypomagnesemia (principal)

== ENCOUNTER → 2020-11-01 | Outpatient (CLI) | payer MEDICARE, OTHER ==
[~2020-11-01] MED LIST changes: +MONT10TA10 PO; -MONT10TA97 PO; -ONDA-84 PO; +ONDA8TAB10 PO; -PROBCAP14 PO; +PROC10TA4 PO; -PROC10TA5 PO; -[UNRECOGNIZED DRUG - OTHER] PO; -[UNRECOGNIZED DRUG - OTHER] PO; -[UNRECOGNIZED DRUG - OTHER] PO; -aloe PO
--- NOTE | 2020-11-01 12:52 | REP ---
INDICATION: RESTAGING COLON CANCER C18.8. Metastatic colon carcinoma with lung metastasis. Post hemicolectomy October of 2018 and metastasectomy of solitary pulmonary metastatic focus in April of 2019. Left pelvic sidewall metastasis. COMPARISON: Comparison PET-CT studies are dated July 12, 2020, January 06, 2020, and November 20, 2018. TECHNIQUE: Fifty-one minutes following the intravenous injection of a 9.36 mCi dose of F-18 FDG, three-dimensional PET scintigraphy is acquired from the skull base to the proximal thighs. Triplanar noncontrast CT scanning is acquired through the same anatomic range for attenuation correction, and image registration with scan parameters optimized to minimize radiation exposure to the patient. PET scintigraphy and CT datasets were fused and displayed on a workstation with multiplanar and projection display capability. FINDINGS: Head and neck soft tissues are unremarkable. There is a right-sided [id number] catheter. No abnormal hilar or mediastinal hypermetabolic uptake is seen. There is a zone linear platelike atelectasis versus fibrosis in the left lower lobe of the lung. No abnormal pulmonary parenchymal hypermetabolic uptake is observed. There is some post thoracotomy change in the left posterolateral chest wall. In the abdomen and pelvis, there is normal distribution of uptake to the genitourinary and gastrointestinal system. There is a central focus of hypermetabolic uptake in the right lobe of the liver as a new finding consistent with a hepatic metastatic lesion. This measures 5.4 cm in anteroposterior dimension on scintigraphic images. Maximum standard uptake value within the lesion is 9.53. There is subtle low density in this region of the liver on the accompanying noncontrast CT study. No other focal liver lesion is seen. A The pericolonic focus of metastatic uptake seen previously along the left pelvic sidewall adjacent to the sigmoid colon is again noted. Maximum standard uptake value here today is 11.52. There is a small nodule just above the bladder to the right of the sigmoid colon where maximum standard uptake value is difficult to measure because of its proximity to the bladder. Maximum standard uptake value appears to be 5.42. On July 12, 2020 this focus was 6.38 maximum SUV. It is unchanged in size. No new drea focus of increased uptake is seen in the abdomen or pelvis. IMPRESSION: There is a new focus of hypermetabolic uptake centrally in the right lobe of the liver consistent with a liver metastasis. Previously noted pelvic foci are again seen unchanged. <Electronically signed by Onesimo Li > 11/01/20 [id number]
== END ==
LOC: M PLARAD 10:20
PROVIDERS: ATTEND Internal Medicine Medical Oncology
DX: R93.89 Abnormal findings on diagnostic imaging of other specified body structures (principal); K76.89 Other specified diseases of liver; C18.8 Malignant neoplasm of overlapping sites of colon; C34.00 Malignant neoplasm of unspecified main bronchus; C76.2 Malignant neoplasm of abdomen
CPT/HCPCS: 78815; A9552

== ENCOUNTER → 2020-11-16 | Outpatient (REF) | payer MEDICARE, OTHER ==
[~2020-11-16] MED LIST changes: +PROBCAP14 PO; +[UNRECOGNIZED DRUG - OTHER] PO; +[UNRECOGNIZED DRUG - OTHER] PO; +[UNRECOGNIZED DRUG - OTHER] PO; +aloe PO
[2020-11-16 16:20] LABS: BASO # 0.1 10^3/uL (0.0-0.2); BASO % 0.6 % (0.0-1.0); EOS # 1.3 10^3/uL (0.0-0.5); EOS % 10.9 % (0.0-3.0); HEMATOCRIT 41.4 % (36.0-47.0); HEMOGLOBIN 13.2 g/dl (12.0-15.5); LYMPH # 2.3 10^3/uL (1.5-5.0); LYMPH % 19.1 % (24.0-44.0); MEAN CORPUSCULAR HEMOGLOBIN 30.4 pg (27.0-33.0); MEAN CORPUSCULAR HGB CONC 31.9 g/dl (32.0-36.5); MEAN CORPUSCULAR VOLUME 95.4 fl (80.0-96.0); MONO # 0.9 10^3/uL (0.0-0.8); MONO % 7.6 % (2.0-8.0); NEUTROPHILS # 7.5 10^3/uL (1.5-8.5); NEUTROPHILS % 61.3 % (36.0-66.0); PLATELET COUNT, AUTOMATED 191 10^3/uL (150-450); RED BLOOD COUNT 4.34 10^6/uL (4.00-5.40); WHITE BLOOD COUNT 12.2 10^3/uL (4.0-10.0)
[2020-11-16 17:04] LABS: ALBUMIN 3.2 GM/DL (3.2-5.2); BILIRUBIN,TOTAL 0.6 MG/DL (0.2-1.0); CALCIUM LEVEL 9.7 MG/DL (8.8-10.2); CREATININE FOR GFR 1.09 MG/DL (0.55-1.30); GLOMERULAR FILTRATION RATE 52.2 (>39); MAGNESIUM LEVEL 1.6 MG/DL (1.8-2.4); TOTAL PROTEIN 6.3 GM/DL (6.4-8.2)
== END ==
LOC: M LABDRAWC 15:47
PROVIDERS: ATTEND Internal Medicine Medical Oncology
DX: C18.9 Malignant neoplasm of colon, unspecified (principal)

== ENCOUNTER → 2020-11-30 | Outpatient (REF) | payer MEDICARE, OTHER ==
[2020-11-30 16:17] LABS: BASO # 0.1 10^3/uL (0.0-0.2); BASO % 0.4 % (0.0-1.0); EOS # 0.6 10^3/uL (0.0-0.5); EOS % 4.8 % (0.0-3.0); HEMOGLOBIN 13.6 g/dl (12.0-15.5); LYMPH # 1.9 10^3/uL (1.5-5.0); LYMPH % 16.4 % (24.0-44.0); MEAN CORPUSCULAR HEMOGLOBIN 30.3 pg (27.0-33.0); MEAN CORPUSCULAR HGB CONC 32.4 g/dl (32.0-36.5); MEAN CORPUSCULAR VOLUME 93.5 fl (80.0-96.0); MONO # 0.9 10^3/uL (0.0-0.8); MONO % 7.4 % (2.0-8.0); NEUTROPHILS # 8.2 10^3/uL (1.5-8.5); NEUTROPHILS % 70.5 % (36.0-66.0); PLATELET COUNT, AUTOMATED 180 10^3/uL (150-450); RED BLOOD COUNT 4.49 10^6/uL (4.00-5.40); WHITE BLOOD COUNT 11.6 10^3/uL (4.0-10.0)
[2020-11-30 16:33] LABS: APPEARANCE, URINE HAZY (CLEAR); BACTERIA, URINE AUTO NEGATIVE (NEGATIVE); BILIRUBIN, URINE AUTO NEGATIVE (NEGATIVE); BLOOD, URINE BLOOD NEGATIVE (NEGATIVE); COLOR, URINE YELLOW (YELLOW); GLUCOSE, URINE (UA) AUTO NEGATIVE (NEGATIVE); KETONE, URINE AUTO NEGATIVE (NEGATIVE); LEUKOCYTE ESTERASE, URINE AUTO NEGATIVE (NEGATIVE); MUCUS, URINE SMALL (NEGATIVE); NITRITE, URINE AUTO NEGATIVE (NEGATIVE); PROTEIN, URINE AUTO 2+ mg/dL (NEGATIVE); RBC, URINE AUTO 0 /HPF (0-3); SPECIFIC GRAVITY URINE AUTO 1.018 (1.002-1.035); SQUAMOUS EPITHELIAL CELL UR AU 11 /HPF (0-6); UROBILINOGEN, URINE AUTO 0.2 mg/dL (0.0-2.0); WBC, URINE AUTO 1 /HPF (0-3)
[2020-11-30 19:21] LABS: ALBUMIN 3.3 GM/DL (3.2-5.2); BILIRUBIN,TOTAL 0.8 MG/DL (0.2-1.0); CALCIUM LEVEL 10.3 MG/DL (8.8-10.2); CREATININE FOR GFR 1.06 MG/DL (0.55-1.30); GLOMERULAR FILTRATION RATE 53.9 (>39); TOTAL PROTEIN 6.5 GM/DL (6.4-8.2)
== END ==
LOC: M LABDRAWC 15:44
PROVIDERS: ATTEND Internal Medicine Medical Oncology
DX: C18.9 Malignant neoplasm of colon, unspecified (principal)

== ENCOUNTER → 2020-12-13 | Outpatient (REF) | payer MEDICARE, OTHER ==
[2020-12-13 16:44] LABS: BASO # 0.1 10^3/uL (0.0-0.2); BASO % 0.4 % (0.0-1.0); EOS # 0.3 10^3/uL (0.0-0.5); EOS % 1.5 % (0.0-3.0); HEMATOCRIT 40.7 % (36.0-47.0); HEMOGLOBIN 13.2 g/dl (12.0-15.5); LYMPH # 2.5 10^3/uL (1.5-5.0); LYMPH % 12.9 % (24.0-44.0); MEAN CORPUSCULAR HEMOGLOBIN 30.7 pg (27.0-33.0); MEAN CORPUSCULAR HGB CONC 32.4 g/dl (32.0-36.5); MEAN CORPUSCULAR VOLUME 94.7 fl (80.0-96.0); MONO # 1.2 10^3/uL (0.0-0.8); MONO % 6.2 % (2.0-8.0); NEUTROPHILS # 14.6 10^3/uL (1.5-8.5); NEUTROPHILS % 75.9 % (36.0-66.0); PLATELET COUNT, AUTOMATED 113 10^3/uL (150-450); WHITE BLOOD COUNT 19.3 10^3/uL (4.0-10.0)
[2020-12-13 17:20] LABS: ALT/SGPT 21 U/L (12-78); BILIRUBIN,TOTAL 0.4 MG/DL (0.2-1.0); BLOOD UREA NITROGEN 11 MG/DL (7-18); CALCIUM LEVEL 9.2 MG/DL (8.8-10.2); CARBON DIOXIDE LEVEL 31 MEQ/L (21-32); CHLORIDE LEVEL 102 MEQ/L (98-107); CREATININE FOR GFR 0.93 MG/DL (0.55-1.30); FERRITIN 234 NG/ML (8-252); GLOMERULAR FILTRATION RATE > 60.0 (>39); GLUCOSE, FASTING 225 MG/DL (70-100); MAGNESIUM LEVEL 1.7 MG/DL (1.8-2.4); POTASSIUM SERUM 3.6 MEQ/L (3.5-5.1); SODIUM LEVEL 141 MEQ/L (136-145); TOTAL PROTEIN 6.3 GM/DL (6.4-8.2)
[2020-12-13 17:25] LABS: APPEARANCE, URINE HAZY (CLEAR); BACTERIA, URINE AUTO NEGATIVE (NEGATIVE); BILIRUBIN, URINE AUTO NEGATIVE (NEGATIVE); BLOOD, URINE BLOOD NEGATIVE (NEGATIVE); CALCIUM OXALATE CRYSTALS MODERATE; COLOR, URINE YELLOW (YELLOW); GLUCOSE, URINE (UA) AUTO NEGATIVE (NEGATIVE); KETONE, URINE AUTO NEGATIVE (NEGATIVE); LEUKOCYTE ESTERASE, URINE AUTO NEGATIVE (NEGATIVE); MUCUS, URINE SMALL (NEGATIVE); NITRITE, URINE AUTO NEGATIVE (NEGATIVE); PROTEIN, URINE AUTO 2+ mg/dL (NEGATIVE); RBC, URINE AUTO 0 /HPF (0-3); SPECIFIC GRAVITY URINE AUTO 1.011 (1.002-1.035); SQUAMOUS EPITHELIAL CELL UR AU 0 /HPF (0-6); UROBILINOGEN, URINE AUTO 0.2 mg/dL (0.0-2.0); WBC, URINE AUTO 3 /HPF (0-3)
== END ==
LOC: M LABDRAWC 15:52
PROVIDERS: ATTEND Internal Medicine Medical Oncology
DX: C18.9 Malignant neoplasm of colon, unspecified (principal)

== ENCOUNTER → 2021-01-03 | Outpatient (REF) | payer MEDICARE, OTHER ==
[~2021-01-03] MED LIST changes: -MONT10TA10 PO; +MONT10TA97 PO; +ONDA-84 PO; -ONDA8TAB10 PO; -PROC10TA4 PO; +PROC10TA5 PO
[2021-01-03 16:49] LABS: APPEARANCE, URINE HAZY (CLEAR); BACTERIA, URINE AUTO NEGATIVE (NEGATIVE); BILIRUBIN, URINE AUTO NEGATIVE (NEGATIVE); BLOOD, URINE BLOOD NEGATIVE (NEGATIVE); COLOR, URINE YELLOW (YELLOW); GLUCOSE, URINE (UA) AUTO NEGATIVE (NEGATIVE); KETONE, URINE AUTO NEGATIVE (NEGATIVE); LEUKOCYTE ESTERASE, URINE AUTO NEGATIVE (NEGATIVE); MUCUS, URINE SMALL (NEGATIVE); NITRITE, URINE AUTO NEGATIVE (NEGATIVE); PROTEIN, URINE AUTO 2+ mg/dL (NEGATIVE); RBC, URINE AUTO 0 /HPF (0-3); SPECIFIC GRAVITY URINE AUTO 1.016 (1.002-1.035); SQUAMOUS EPITHELIAL CELL UR AU 3 /HPF (0-6); UROBILINOGEN, URINE AUTO 0.2 mg/dL (0.0-2.0); WBC, URINE AUTO 2 /HPF (0-3)
[2021-01-03 16:50] LABS: BASO # 0.1 10^3/uL (0.0-0.2); BASO % 0.6 % (0.0-1.0); EOS # 0.2 10^3/uL (0.0-0.5); EOS % 1.4 % (0.0-3.0); HEMATOCRIT 43.8 % (36.0-47.0); HEMOGLOBIN 13.7 g/dl (12.0-15.5); LYMPH # 2.2 10^3/uL (1.5-5.0); LYMPH % 17.9 % (24.0-44.0); MEAN CORPUSCULAR HEMOGLOBIN 30.1 pg (27.0-33.0); MEAN CORPUSCULAR HGB CONC 31.3 g/dl (32.0-36.5); MEAN CORPUSCULAR VOLUME 96.3 fl (80.0-96.0); MONO % 8.1 % (2.0-8.0); NEUTROPHILS # 8.6 10^3/uL (1.5-8.5); NEUTROPHILS % 71.4 % (36.0-66.0); PLATELET COUNT, AUTOMATED 144 10^3/uL (150-450); RED BLOOD COUNT 4.55 10^6/uL (4.00-5.40)
[2021-01-03 17:13] LABS: ALBUMIN 3.2 GM/DL (3.2-5.2); BILIRUBIN,TOTAL 0.7 MG/DL (0.2-1.0); CALCIUM LEVEL 9.8 MG/DL (8.8-10.2); CREATININE FOR GFR 1.11 MG/DL (0.55-1.30); GLOMERULAR FILTRATION RATE 51.2 (>39); MAGNESIUM LEVEL 1.8 MG/DL (1.8-2.4); POTASSIUM SERUM 4.1 MEQ/L (3.5-5.1); TOTAL PROTEIN 6.8 GM/DL (6.4-8.2)
== END ==
LOC: M LABDRAWC 15:50
PROVIDERS: ATTEND Internal Medicine Medical Oncology
DX: C18.9 Malignant neoplasm of colon, unspecified (principal)

== ENCOUNTER → 2021-01-05 | Outpatient (CLI) | payer MEDICARE, OTHER ==
[~2021-01-05] MED LIST changes: +MONT10TA10 PO; -MONT10TA97 PO; -ONDA-84 PO; +ONDA8TAB10 PO; +PROC10TA4 PO; -PROC10TA5 PO
== END ==
LOC: M LABSMTC 11:16
PROVIDERS: ATTEND Family Medicine
DX: Z11.52 Encounter for screening for COVID-19 (principal)
CPT/HCPCS: C9803; U0003

== ENCOUNTER → 2021-01-21 | Outpatient (REF) | payer MEDICARE, OTHER ==
[~2021-01-21] MED LIST changes: -MONT10TA10 PO; +MONT10TA97 PO; +ONDA-84 PO; -ONDA8TAB10 PO; -PROC10TA4 PO; +PROC10TA5 PO
[2021-01-21 12:11] LABS: BASO # 0.1 10^3/uL (0.0-0.2); BASO % 0.4 % (0.0-1.0); EOS # 0.3 10^3/uL (0.0-0.5); EOS % 1.4 % (0.0-3.0); HEMATOCRIT 42.9 % (36.0-47.0); HEMOGLOBIN 13.3 g/dl (12.0-15.5); LYMPH # 2.4 10^3/uL (1.5-5.0); LYMPH % 10.3 % (24.0-44.0); MEAN CORPUSCULAR VOLUME 96.6 fl (80.0-96.0); MONO % 7.5 % (2.0-8.0); NEUTROPHILS # 18.5 10^3/uL (1.5-8.5); NEUTROPHILS % 78.1 % (36.0-66.0); PLATELET COUNT, AUTOMATED 143 10^3/uL (150-450); RED BLOOD COUNT 4.44 10^6/uL (4.00-5.40); WHITE BLOOD COUNT 23.7 10^3/uL (4.0-10.0)
[2021-01-21 12:14] LABS: MONO # 1.8 10^3/uL (0.0-0.8)
[2021-01-21 12:19] LABS: APPEARANCE, URINE HAZY (CLEAR); BACTERIA, URINE AUTO 1+ (NEGATIVE); BILIRUBIN, URINE AUTO NEGATIVE (NEGATIVE); BLOOD, URINE BLOOD NEGATIVE (NEGATIVE); COLOR, URINE YELLOW (YELLOW); GLUCOSE, URINE (UA) AUTO NEGATIVE (NEGATIVE); KETONE, URINE AUTO NEGATIVE (NEGATIVE); LEUKOCYTE ESTERASE, URINE AUTO NEGATIVE (NEGATIVE); MUCUS, URINE SMALL (NEGATIVE); NITRITE, URINE AUTO NEGATIVE (NEGATIVE); PROTEIN, URINE AUTO 2+ mg/dL (NEGATIVE); RBC, URINE AUTO 0 /HPF (0-3); SPECIFIC GRAVITY URINE AUTO 1.019 (1.002-1.035); SQUAMOUS EPITHELIAL CELL UR AU 5 /HPF (0-6); UROBILINOGEN, URINE AUTO 0.2 mg/dL (0.0-2.0); WBC, URINE AUTO 5 /HPF (0-3)
[2021-01-21 14:37] LABS: ALBUMIN 3.4 GM/DL (3.2-5.2); ALT/SGPT 20 U/L (12-78); BILIRUBIN,TOTAL 0.5 MG/DL (0.2-1.0); BLOOD UREA NITROGEN 10 MG/DL (7-18); CALCIUM LEVEL 9.4 MG/DL (8.8-10.2); CARBON DIOXIDE LEVEL 30 MEQ/L (21-32); CHLORIDE LEVEL 100 MEQ/L (98-107); CREATININE FOR GFR 0.96 MG/DL (0.55-1.30); FERRITIN 190 NG/ML (8-252); GLOMERULAR FILTRATION RATE > 60.0 (>39); GLUCOSE, FASTING 227 MG/DL (70-100); MAGNESIUM LEVEL 1.7 MG/DL (1.8-2.4); POTASSIUM SERUM 3.5 MEQ/L (3.5-5.1); SODIUM LEVEL 140 MEQ/L (136-145); TOTAL PROTEIN 6.6 GM/DL (6.4-8.2)
== END ==
LOC: M LABDRAWC 11:31
PROVIDERS: ATTEND Internal Medicine Medical Oncology
DX: C18.9 Malignant neoplasm of colon, unspecified (principal)

== ENCOUNTER → 2021-03-14 | Outpatient (CLI) | payer MEDICARE, OTHER | LOC: M PLARAD 12:37 | PROVIDERS: ATTEND Internal Medicine Medical Oncology | DX: R93.89 Abnormal findings on diagnostic imaging of other specified body structures (principal); C18.8 Malignant neoplasm of overlapping sites of colon | CPT/HCPCS: 78815; A9552 ==

== ENCOUNTER → 2021-03-18 | Outpatient (REF) | payer MEDICARE, OTHER ==
[2021-03-18 11:46] LABS: BASO # 0.1 10^3/uL (0.0-0.2); BASO % 0.3 % (0.0-1.0); EOS # 0.3 10^3/uL (0.0-0.5); EOS % 1.2 % (0.0-3.0); HEMATOCRIT 40.8 % (36.0-47.0); HEMOGLOBIN 12.8 g/dl (12.0-15.5); LYMPH # 2.6 10^3/uL (1.5-5.0); MEAN CORPUSCULAR HEMOGLOBIN 30.8 pg (27.0-33.0); MEAN CORPUSCULAR HGB CONC 31.4 g/dl (32.0-36.5); MEAN CORPUSCULAR VOLUME 98.3 fl (80.0-96.0); MONO % 7.6 % (2.0-8.0); NEUTROPHILS # 16.8 10^3/uL (1.5-8.5); NEUTROPHILS % 77.6 % (36.0-66.0); PLATELET COUNT, AUTOMATED 147 10^3/uL (150-450); RED BLOOD COUNT 4.15 10^6/uL (4.00-5.40); WHITE BLOOD COUNT 21.6 10^3/uL (4.0-10.0)
[2021-03-18 11:47] LABS: MONO # 1.7 10^3/uL (0.0-0.8)
[2021-03-18 11:56] LABS: APPEARANCE, URINE HAZY (CLEAR); BACTERIA, URINE AUTO 1+ (NEGATIVE); BILIRUBIN, URINE AUTO NEGATIVE (NEGATIVE); BLOOD, URINE BLOOD NEGATIVE (NEGATIVE); CALCIUM OXALATE CRYSTALS SMALL; COLOR, URINE YELLOW (YELLOW); GLUCOSE, URINE (UA) AUTO NEGATIVE (NEGATIVE); KETONE, URINE AUTO NEGATIVE (NEGATIVE); LEUKOCYTE ESTERASE, URINE AUTO NEGATIVE (NEGATIVE); MUCUS, URINE SMALL (NEGATIVE); NITRITE, URINE AUTO NEGATIVE (NEGATIVE); PROTEIN, URINE AUTO 2+ mg/dL (NEGATIVE); RBC, URINE AUTO 2 /HPF (0-3); SPECIFIC GRAVITY URINE AUTO 1.018 (1.002-1.035); SQUAMOUS EPITHELIAL CELL UR AU 8 /HPF (0-6); TRANSITIONAL EPITHELIAL AUTO <1 /HPF; WBC, URINE AUTO 3 /HPF (0-3)
[2021-03-18 12:28] LABS: ALBUMIN 3.3 GM/DL (3.2-5.2); ALT/SGPT 18 U/L (12-78); BILIRUBIN,TOTAL 0.5 MG/DL (0.2-1.0); BLOOD UREA NITROGEN 11 MG/DL (7-18); CALCIUM LEVEL 9.5 MG/DL (8.8-10.2); CARBON DIOXIDE LEVEL 29 MEQ/L (21-32); CHLORIDE LEVEL 102 MEQ/L (98-107); CREATININE FOR GFR 0.94 MG/DL (0.55-1.30); FERRITIN 214 NG/ML (8-252); GLOMERULAR FILTRATION RATE > 60.0 (>39); GLUCOSE, FASTING 139 MG/DL (70-100); MAGNESIUM LEVEL 1.9 MG/DL (1.8-2.4); POTASSIUM SERUM 3.9 MEQ/L (3.5-5.1); SODIUM LEVEL 140 MEQ/L (136-145); TOTAL PROTEIN 6.5 GM/DL (6.4-8.2)
== END ==
LOC: M LAB REF 11:09 → M LABDRAWC 11:09
PROVIDERS: ATTEND Internal Medicine Medical Oncology
DX: C18.9 Malignant neoplasm of colon, unspecified (principal)

== ENCOUNTER → 2021-04-06 | Outpatient (REF) | payer MEDICARE, OTHER ==
[~2021-04-06] MED LIST changes: -D31000TA2 PO; +VITA100093 PO
[2021-04-06 19:36] LABS: URINE TOTAL PROTEIN 33.2 MG/DL (0-12)
[2021-04-06 20:38] LABS: TOTAL PROTEIN 24 HOUR URINE 647.4 MG/24HR (50-150)
== END ==
LOC: M LAB REF 12:24
PROVIDERS: ATTEND Internal Medicine Medical Oncology
DX: N39.9 Disorder of urinary system, unspecified (principal)

== ENCOUNTER → 2021-05-27 | Outpatient (REF) | payer MEDICARE, OTHER ==
[~2021-05-27] MED LIST changes: +MAGN400C PO; +MORP15TA2 PO; +NEUR100C PO
[2021-05-27 11:50] LABS: APPEARANCE, URINE CLEAR (CLEAR); BACTERIA, URINE AUTO NEGATIVE (NEGATIVE); BASO # 0.1 10^3/uL (0.0-0.2); BASO % 0.4 % (0.0-1.0); BILIRUBIN, URINE AUTO NEGATIVE (NEGATIVE); BLOOD, URINE BLOOD NEGATIVE (NEGATIVE); COLOR, URINE YELLOW (YELLOW); EOS # 0.3 10^3/uL (0.0-0.5); EOS % 1.2 % (0.0-3.0); GLUCOSE, URINE (UA) AUTO NEGATIVE (NEGATIVE); HEMATOCRIT 42.5 % (36.0-47.0); HEMOGLOBIN 13.6 g/dl (12.0-15.5); KETONE, URINE AUTO NEGATIVE (NEGATIVE); LEUKOCYTE ESTERASE, URINE AUTO NEGATIVE (NEGATIVE); LYMPH # 2.3 10^3/uL (1.5-5.0); LYMPH % 9.3 % (24.0-44.0); MEAN CORPUSCULAR HEMOGLOBIN 30.8 pg (27.0-33.0); MEAN CORPUSCULAR VOLUME 96.4 fl (80.0-96.0); MONO # 1.9 10^3/uL (0.0-0.8); MONO % 7.9 % (2.0-8.0); MUCUS, URINE SMALL (NEGATIVE); NEUTROPHILS # 19.8 10^3/uL (1.5-8.5); NEUTROPHILS % 80.1 % (36.0-66.0); NITRITE, URINE AUTO NEGATIVE (NEGATIVE); PLATELET COUNT, AUTOMATED 165 10^3/uL (150-450); PROTEIN, URINE AUTO 3+ mg/dL (NEGATIVE); RBC, URINE AUTO 0 /HPF (0-3); RED BLOOD COUNT 4.41 10^6/uL (4.00-5.40); SPECIFIC GRAVITY URINE AUTO 1.019 (1.002-1.035); SQUAMOUS EPITHELIAL CELL UR AU 2 /HPF (0-6); UROBILINOGEN, URINE AUTO 0.2 mg/dL (0.0-2.0); WBC, URINE AUTO 1 /HPF (0-3); WHITE BLOOD COUNT 24.7 10^3/uL (4.0-10.0)
[2021-05-27 12:20] LABS: ALBUMIN 3.5 GM/DL (3.2-5.2); ALT/SGPT 41 U/L (12-78); BILIRUBIN,TOTAL 0.4 MG/DL (0.2-1.0); BLOOD UREA NITROGEN 11 MG/DL (7-18); CALCIUM LEVEL 10.3 MG/DL (8.8-10.2); CARBON DIOXIDE LEVEL 27 MEQ/L (21-32); CHLORIDE LEVEL 103 MEQ/L (98-107); GLOMERULAR FILTRATION RATE > 60.0 (>39); GLUCOSE, FASTING 165 MG/DL (70-100); SODIUM LEVEL 139 MEQ/L (136-145); TOTAL PROTEIN 6.9 GM/DL (6.4-8.2)
== END ==
LOC: M LABDRAWC 11:34
PROVIDERS: ATTEND Internal Medicine
DX: C18.9 Malignant neoplasm of colon, unspecified (principal)

== ENCOUNTER → 2021-05-27 | Outpatient (REF) | payer MEDICARE, OTHER ==
[2021-05-27 11:49] LABS: BASO # 0.1 10^3/uL (0.0-0.2); BASO % 0.4 % (0.0-1.0); EOS # 0.3 10^3/uL (0.0-0.5); EOS % 1.2 % (0.0-3.0); HEMATOCRIT 42.8 % (36.0-47.0); HEMOGLOBIN 13.8 g/dl (12.0-15.5); LYMPH # 2.3 10^3/uL (1.5-5.0); LYMPH % 9.1 % (24.0-44.0); MEAN CORPUSCULAR HEMOGLOBIN 31.5 pg (27.0-33.0); MEAN CORPUSCULAR HGB CONC 32.2 g/dl (32.0-36.5); MEAN CORPUSCULAR VOLUME 97.7 fl (80.0-96.0); MONO % 7.7 % (2.0-8.0); NEUTROPHILS # 19.8 10^3/uL (1.5-8.5); NEUTROPHILS % 80.3 % (36.0-66.0); PLATELET COUNT, AUTOMATED 159 10^3/uL (150-450); RED BLOOD COUNT 4.38 10^6/uL (4.00-5.40); WHITE BLOOD COUNT 24.7 10^3/uL (4.0-10.0)
[2021-05-27 12:18] LABS: MONO # 1.9 10^3/uL (0.0-0.8)
[2021-05-27 12:31] LABS: ALBUMIN 3.3 GM/DL (3.2-5.2); BILIRUBIN,TOTAL 0.6 MG/DL (0.2-1.0); CALCIUM LEVEL 9.8 MG/DL (8.8-10.2); CREATININE FOR GFR 0.97 MG/DL (0.55-1.30); FREE T4 1.26 NG/DL (0.76-1.46); GLOMERULAR FILTRATION RATE 59.6 (>39); POTASSIUM SERUM 3.9 MEQ/L (3.5-5.1); THYROID STIMULATING HORMONE 8.34 uIU/ML (0.358-3.740); TOTAL PROTEIN 6.8 GM/DL (6.4-8.2)
== END ==
LOC: M SFHCCLAY 08:38
PROVIDERS: ATTEND Nurse Practitioner Family
DX: G62.0 Drug-induced polyneuropathy (principal); E07.9 Disorder of thyroid, unspecified

== ENCOUNTER 2021-06-03 12:14 | Emergency (ER) | payer MEDICARE, OTHER ==
[~2021-06-03] VITALS: Ht 157.5 cm; Wt 124.1 kg
[2021-06-03 14:09] LABS: BASO % 0.2 % (0.0-1.0); EOS # 0.2 10^3/uL (0.0-0.5); HEMATOCRIT 40.9 % (36.0-47.0); HEMOGLOBIN 13.4 g/dl (12.0-15.5); LYMPH # 1.4 10^3/uL (1.5-5.0); LYMPH % 8.4 % (24.0-44.0); MEAN CORPUSCULAR HEMOGLOBIN 30.9 pg (27.0-33.0); MEAN CORPUSCULAR HGB CONC 32.8 g/dl (32.0-36.5); MEAN CORPUSCULAR VOLUME 94.5 fl (80.0-96.0); MONO % 9.7 % (2.0-8.0); NEUTROPHILS # 13.6 10^3/uL (1.5-8.5); NEUTROPHILS % 80.1 % (36.0-66.0); PLATELET COUNT, AUTOMATED 158 10^3/uL (150-450); RED BLOOD COUNT 4.33 10^6/uL (4.00-5.40)
[2021-06-03 14:35] LABS: BLOOD UREA NITROGEN 22 MG/DL (7-18); CALCIUM LEVEL 10.2 MG/DL (8.8-10.2); CARBON DIOXIDE LEVEL 29 MEQ/L (21-32); CHLORIDE LEVEL 100 MEQ/L (98-107); CREATININE FOR GFR 0.94 MG/DL (0.55-1.30); GLOMERULAR FILTRATION RATE > 60.0 (>39); GLUCOSE, FASTING 226 MG/DL (70-100); POTASSIUM SERUM 4.2 MEQ/L (3.5-5.1); SODIUM LEVEL 136 MEQ/L (136-145)
[2021-06-03 14:37] LABS: MONO # 1.7 10^3/uL (0.0-0.8)
[2021-06-03] MEDS: MORPHINE 2 MG/ML 1ML VIAL IV PRN ×2 (14:43→17:24)
[2021-06-03 14:52] LABS: APPEARANCE, URINE CLEAR (CLEAR); BACTERIA, URINE AUTO NEGATIVE (NEGATIVE); BILIRUBIN, URINE AUTO NEGATIVE (NEGATIVE); BLOOD, URINE BLOOD NEGATIVE (NEGATIVE); COLOR, URINE YELLOW (YELLOW); GLUCOSE, URINE (UA) AUTO NEGATIVE (NEGATIVE); KETONE, URINE AUTO NEGATIVE (NEGATIVE); LEUKOCYTE ESTERASE, URINE AUTO NEGATIVE (NEGATIVE); MUCUS, URINE SMALL (NEGATIVE); NITRITE, URINE AUTO NEGATIVE (NEGATIVE); PROTEIN, URINE AUTO 2+ mg/dL (NEGATIVE); RBC, URINE AUTO 0 /HPF (0-3); SPECIFIC GRAVITY URINE AUTO 1.011 (1.002-1.035); SQUAMOUS EPITHELIAL CELL UR AU 2 /HPF (0-6); UROBILINOGEN, URINE AUTO 0.2 mg/dL (0.0-2.0); WBC, URINE AUTO 1 /HPF (0-3)
[2021-06-03 17:34] LABS: ALBUMIN 3.2 GM/DL (3.2-5.2); ALT/SGPT 39 U/L (12-78); BILIRUBIN,DIRECT 0.3 MG/DL (0.0-0.2); BILIRUBIN,TOTAL 0.8 MG/DL (0.2-1.0); TOTAL PROTEIN 6.7 GM/DL (6.4-8.2)
[2021-06-03 18:04] LABS: RSV AMPLIFICATION NEGATIVE (NEGATIVE)
[2021-06-03 21:31] VITALS: BP 168/88
== END 2021-06-03 21:39 | disposition short-term general hospital (02) ==
LOC: M ED 12:14
DX: G83.4 Cauda equina syndrome (principal); C18.2 Malignant neoplasm of ascending colon; C78.00 Secondary malignant neoplasm of unspecified lung; K76.89 Other specified diseases of liver; R16.1 Splenomegaly, not elsewhere classified; M48.062 Spinal stenosis, lumbar region with neurogenic claudication; M51.36 Other intervertebral disc degeneration, lumbar region; N13.30 Unspecified hydronephrosis; R19.09 Other intra-abdominal and pelvic swelling, mass and lump; E11.9 Type 2 diabetes mellitus without complications; I10 Essential (primary) hypertension; E78.5 Hyperlipidemia, unspecified; Z88.6 Allergy status to analgesic agent; Z88.8 Allergy status to other drugs, medicaments and biological substances; Z79.899 Other long term (current) drug therapy
CPT/HCPCS: 72131; 74176; 80048; 80076; 81001; 83605; 85025; 87040; 87631; 93041; 94760; 96374; 99285; J2270